=== PATIENT | male | born 1940 | race Caucasian/White ===

== ENCOUNTER 2017-02-15 07:30 | Inpatient (IN) | payer MEDICARE ==
[~2017-02-15] VITALS: Ht 180.3 cm; Wt 73.4 kg
[2017-02-15] VITALS (13 sets, daily range): BP systolic 100–143; BP diastolic 55–88; PULSE 101–129; RESP 16–27; TEMP 97.9–99; O2SAT 84–99
[~2017-02-15 07:30] MED LIST: ZYRT10TA12 PO
[2017-02-15] MEDS ORDERED: SODIUM CHLORIDE 0.9% FLUSH 10 ML FLUSH IVF PRN (08:15)
--- NOTE | 2017-02-15 08:15 | PD ---
HPI Chief Complaint: Respiratory Symptoms Time Seen by Provider: 07:59 Travel History International Travel<30 days: No Contact w/Intl Traveler<30days: No Traveled to known affect area: No History of Present Illness HPI This patient complains of shortness of breath and cough. Duration 7 days. Severity is severe. Denies chest pain or fever. He quit smoking in 1974 and has no diagnosed lung or cardiac disease. However he does not go to physicians or take any prescription medications. No alleviating factors. PFSH Past Medical History Medical History: Denies Significant Hx Diminished Hearing: No Past Surgical History Surgical History: No Previous Surgery Social History Alcohol Use: No Tobacco Use: No Substance Use: No Allergies-Medications (Allergen,Severity, Reaction): Coded Allergies: Aspirin (Verified Allergy, Severe, Rash, 02/15/17) Reported Meds & Prescriptions Reported Meds & Active Scripts Active No Active Prescriptions or Reported Medications Review of Systems General / Constitutional: No: Fever Eyes: No: Visual changes HENT: No: Headaches Cardiovascular: Positive: Tachycardia, Diaphoresis, No: Chest Pain or Discomfort Respiratory: Positive: Cough, Shortness of Breath Gastrointestinal: No: Abdominal Pain Genitourinary: No: Dysuria Musculoskeletal: No: Pain Skin: No Rash Neurologic: No: Weakness Psychiatric: No: Depression Endocrine: No: Polydipsia Hematologic/Lymphatic: No: Easy Bruising Physical Exam Narrative GENERAL: Disheveled well-developed patient in respiratory distress SKIN: Warm and dry. HEAD: Atraumatic. Normocephalic. EYES: Pupils equal and round. No scleral icterus. No injection or drainage. ENT: No nasal bleeding or discharge. Mucous membranes pink and moist. NECK: Trachea midline. No JVD. CARDIOVASCULAR: Regular rate and rhythm. No murmur appreciated. Tachycardic at 130 RESPIRATORY: Positive accessory muscle use. Markedly diminished breath sounds on the left side. Clear on the right side. No wheezing or crackles heard. GASTROINTESTINAL: Abdomen soft, non-tender, nondistended. Hepatic and splenic margins not palpable. MUSCULOSKELETAL: No obvious deformities. No clubbing. No cyanosis. No edema. NEUROLOGICAL: Awake and alert. No obvious cranial nerve deficits. Motor grossly within normal limits. Normal speech. PSYCHIATRIC: Appropriate mood and affect; insight and judgment normal. Data Data Last Documented VS Vital Signs Date Time Temp Pulse Resp B/P Pulse Ox O2 Delivery O2 Flow Rate FiO2 02/15/17 08:11 128 26 90 Non-Rebreather 100 02/15/17 07:57 97.9 143/88 02/15/17 07:57 4 Orders Electrocardiogram (02/15/17 ) Complete Blood Count With Diff (02/15/17 08:08) Basic Metabolic Panel (Bmp) (02/15/17 08:08) Act Partial Throm Time (Ptt) (02/15/17 08:08) Prothrombin Time / Inr (Pt) (02/15/17 08:08) Iv Access Insert/Monitor (02/15/17 08:08) Ecg Monitoring (02/15/17 08:08) Oximetry (02/15/17 08:08) Oxygen Administration (02/15/17 08:08) Chest, Single Ap (02/15/17 08:08) Sodium Chloride 0.9% Flush (Ns Flush) (02/15/17 08:15) Invasive Rad Dept Consult (02/15/17 ) Pleural Fl Cell Count + Diff (02/15/17 09:14) Ldh, Pleural Fluid (02/15/17 09:14) Fluid Culture And Gram Stain (02/15/17 09:14) Cytology Request For Service (02/15/17 09:14) Admit Order (Ed Use Only) (02/15/17 10:04) Labs Laboratory Tests Test 02/15/17 08:00 White Blood Count 110.2 TH/MM3 Red Blood Count 4.60 MIL/MM3 Hemoglobin 13.0 GM/DL Hematocrit 41.0 % Mean Corpuscular Volume 89.2 FL Mean Corpuscular Hemoglobin 28.3 PG Mean Corpuscular Hemoglobin 31.7 % Concent Red Cell Distribution Width 13.3 % Platelet Count 574 TH/MM3 Mean Platelet Volume 8.5 FL Neutrophils (%) (Auto) 94.9 % Lymphocytes (%) (Auto) 2.4 % Monocytes (%) (Auto) 2.6 % Eosinophils (%) (Auto) 0.0 % Basophils (%) (Auto) 0.1 % Neutrophils # (Auto) 104.7 TH/MM3 Lymphocytes # (Auto) 2.6 TH/MM3 Monocytes # (Auto) 2.9 TH/MM3 Eosinophils # (Auto) 0.0 TH/MM3 Basophils # (Auto) 0.1 TH/MM3 CBC Comment AUTO DIFF Differential Total Cells 200 Counted Neutrophils % (Manual) 72 % Band Neutrophils % 22 % Lymphocytes % 5 % Monocytes % 2 % Neutrophils # (Manual) 103.6 TH/MM3 Differential Comment FINAL DIFF MANUAL Platelet Estimate HIGH Platelet Morphology Comment NORMAL Keratocytes OCC Prothrombin Time 10.4 SEC Prothromb Time International 0.9 RATIO Ratio Activated Partial 23.6 SEC Thromboplast Time Sodium Level 143 MEQ/L Potassium Level 4.7 MEQ/L Chloride Level 105 MEQ/L Carbon Dioxide Level 22.9 MEQ/L Anion Gap 15 MEQ/L Blood Urea Nitrogen 43 MG/DL Creatinine 1.70 MG/DL Estimat Glomerular Filtration 40 ML/MIN Rate Random Glucose 223 MG/DL Calcium Level 10.5 MG/DL MDM Medical Decision Making Medical Screen Exam Complete: Yes Emergency Medical Condition: Yes Medical Record Reviewed: Yes Differential Diagnosis Pleural effusion, pneumothorax, pneumonia Narrative Course I have reviewed the patient's electronic medical record. Patient was seen here November 2015 for left hand edema Patient is critically ill with hypoxic respiratory failure On 4 L nasal cannula he is 92% On placing him on an oxygen mask Stat portable chest x-ray is profoundly abnormal. He has a very large left- sided pleural effusion with numerous chest masses on x-ray IV placed CBC shows extreme leukocytosis of 110,000 Metabolic profile reasonably normal Coagulation studies are normal On nonrebreather he has saturation of 99% and breathing easier I suspect he has a new onset cancer. Unclear whether it's a primary lung cancer or metastasis from something else. I've ordered CT of head chest abdomen and pelvis to further evaluate this. I reviewed in detail with police department secretary who will admit to intensive care. I had discussed with the radiologist and ordered a consultation for thoracentesis to drain fluid and sent for studies and cytology Pm Head Cook recommends chest tube instead given the potential for recurrence of fluid. I discussed with Dr. Chisholm in specials and he is agreeable to place a chest tube Patient is very complicated and requiring multiple consultations with multiple physicians, has required multiple rechecks at bedside I initially spoke with director quality assurance as well but he suggested radiology drain the fluid Critical Care Narrative Aggregate critical care time was 80 minutes. Time to perform other separately billable procedures was not included in the critical care time. My time did not include minutes spent treating any other patients simultaneously or on activities that did not directly contribute to the patient's treatment. The services I provided to this patient were to treat and/or prevent clinically significant deterioration that could result in: Cardiopulmonary arrest, complete respiratory failure, tension pneumothorax I provided critical care services requiring my management, as noted below: Chart data review, documentation time, medication orders and management, vital sign assessments/reviewing monitor data, ordering and reviewing lab tests, ordering and interpreting/reviewing x-rays and diagnostic studies, care of the patient and discussion of the patient with the admitting physicians. Diagnosis Primary Impression: Acute respiratory failure with hypoxia Additional Impressions: Pleural effusion on left Lung mass Admitting Information Admitting Physician Requests: Admit Scripts No Active Prescriptions or Reported Ed Kilgore MD Feb 15, 2017 08:15
[2017-02-15 08:31] LABS: AUTOMATED NEUTROPHIL # 104.7 TH/MM3 (1.8-7.7); BASOPHIL # 0.1 TH/MM3 (0-0.2); BASOPHIL % 0.1 % (0.0-2.0); LYMPH % 2.4 % (9.0-44.0); LYMPHOCYTE # 2.6 TH/MM3 (1.0-4.8); MEAN CELL VOLUME 89.2 FL (80.0-100.0); MEAN CORPUSCULAR HEMOGLOBIN 28.3 PG (27.0-34.0); MEAN CORPUSCULAR HGB CONC 31.7 % (32.0-36.0); MONO % 2.6 % (0.0-8.0); NEUT % 94.9 % (16.0-70.0); PLATELET COUNT 574 TH/MM3 (150-450); RED CELL DISTRIBUTION WIDTH 13.3 % (11.6-17.2); WHITE BLOOD COUNT 110.2 TH/MM3 (4.0-11.0)
[2017-02-15 08:36] LABS: HEMO FLAGS AUTO DIFF
[2017-02-15 08:40] LABS: APTT (PATIENT) 23.6 SEC (24.3-30.1); INTERNATIONAL NORMALIZED RATIO 0.9 RATIO; PROTHROMBIN TIME - PATIENT 10.4 SEC (9.8-11.6)
--- NOTE | 2017-02-15 08:44 | RADRPT ---
EXAM DATE/TIME: 02/15/2017 08:12 [facility] COMPARISON: No previous studies available for comparison. INDICATIONS : Short of breath. MEDICAL HISTORY : None. SURGICAL HISTORY : None. ENCOUNTER: Initial ACUITY: 2 weeks PAIN SCORE: 0/10 LOCATION: Bilateral chest FINDINGS: A single portable frontal view the chest shows multiple pulmonary masses. A very large left pleural e ffusion opacifies the majority of the left hemithorax. A small aerated portion of left lung apex gisella ins. A tiny right effusion is seen. Cardiac contour is totally obscured by the effusion. Aortic knob son unremarkable. Bony structures are unremarkable. CONCLUSION: 1. Multiple pulmonary masses worrisome for metastatic disease. Consider CT of the chest to further ev aluate. 2. Large left and tiny right pleural effusion. Jermaine Chisholm Jr., MD on February 15, 2017 at 8:42 Board Certified Radiologist. This report was verified electronically.
[2017-02-15 08:51] LABS: BICARBONATE 22.9 MEQ/L (21.0-32.0); POTASSIUM 4.7 MEQ/L (3.5-5.1)
[2017-02-15 09:01] LABS: BANDS 22 % (0-6); NEUTROPHIL # MANUAL DIFF 103.6 TH/MM3 (1.8-7.7); POLYS (SEG NEUTROPHILS) 72 % (16-70); WBC DIFF SAMPLE 200
[2017-02-15 09:02] LABS: PLATELET ESTIMATE SMEAR HIGH (NORMAL)
[2017-02-15 09:03] LABS: PLATELET MORPHOLOGY NORMAL (NORMAL)
[2017-02-15 09:04] LABS: KERATOCYTES OCC (NORMAL)
[2017-02-15 09:05] LABS: SCAN/DIFF FINAL DIFF MANUAL
[2017-02-15] MEDS ORDERED: FUROSEMIDE 100 MG/10 ML VIAL IV PUSH ONE (11:00)
[2017-02-15] MEDS ORDERED: MISCELLANEOUS NURSING INFORMATION XX SCH (11:30)
[2017-02-15] MEDS ORDERED: DEXTROSE 50% IN WATER 50 ML VIAL(D50) IV PUSH PRN (11:30)
[2017-02-15] MEDS ORDERED: CHLORHEXIDINE GLUCONATE 2 % 1 PACK (2 CLOTHS) TOP PRN (11:30)
[2017-02-15] MEDS: INSULIN NovoLIN REGULAR SUPPLEMENTAL SCALE SQ SCH ×3 (11:30→21:22)
[2017-02-15] MEDS ORDERED: GLUCAGON 1 MG/ML VIAL OTHER PRN (11:30)
[2017-02-15] MEDS: SODIUM CHLOR 0.9% 1000 ML INJ 1,000 ML IV SCH ×2 (11:45→23:31)
[2017-02-15] MEDS: PANTOPRAZOLE SODIUM 40 MG VIAL IV SCH (11:46)
[2017-02-15] MEDS: PIPERACIL-TAZO 4.5 GM PREMIX 100 ML IV SCH ×2 (11:46→21:18)
[2017-02-15] MEDS ORDERED: IODIXANOL 320 MG/ML 10 ML VIAL (for Rad CT) IV ONE (11:55)
--- NOTE | 2017-02-15 12:14 | RADRPT ---
EXAM DATE/TIME: 02/15/2017 11:53 [facility] COMPARISON: No previous studies available for comparison. INDICATIONS : Evaluate for mass. RADIATION DOSE: 38.37 CTDIvol (mGy) MEDICAL HISTORY : None SURGICAL HISTORY : Tonsillectomy. ENCOUNTER: Initial ACUITY: 1 day PAIN SCALE: 3/10 LOCATION: cranial TECHNIQUE: Multiple contiguous axial images were obtained of the head. Using automated exposure control and adj ustment of the mA and/or kV according to patient size, radiation dose was kept as low as reasonably a chievable to obtain optimal diagnostic quality images. FINDINGS: Extensive motion artifact is present. There is no gross blood evident. I do not see significant mas s effect or midline shift. Ventricular size is appropriate. CONCLUSION: Marked motion artifact. I do not see evidence for a mass. Nick Murphy MD FACR on February 15, 2017 at 12:05 Board Certified Radiologist. This report was verified electronically.
--- NOTE | 2017-02-15 12:21 | MH ---
cc: CINDY BARBER DATE OF ADMISSION: 02/15/2017 1942 HISTORY OF PRESENT ILLNESS The patient is a 76-year-old who denies any significant past medical history, presented to [facility] ED with respiratory distress. The patient states that he has been short of breath for the past 2 weeks and progressively worsened. He also reports productive cough with brown phlegm, however, he denies any fever, chills or any constitutional symptoms. The patient denies any nausea, vomiting or abdominal pain. He has not seen a physician for several years and is not on any medications at home. The patient has a remote history of tobacco use and used to smoke a pack a day for several years. On arrival to the ED the patient was tachycardic with heart rate of 120s, tachypneic and hypoxic. He was placed on a non-rebreather mask with current saturation of 98-99%. The chest x-ray in the ER showed large left pleural effusion occupying approximately two-third of the left lung field along with pulmonary masses worrisome for metastatic disease. His laboratory data is significant for acute kidney injury with a BUN of 43, creatinine 1.70, hypercalcemia with calcium level 10.5. In addition his WBC was 110.2, associated with bandemia of 22. In the ER he was given Lasix [address] A [address] scan of the chest, abdomen and pelvis was ordered by the ED, in addition interventional radiology was consulted by ER for chest tube placement. PAST MEDICAL HISTORY The patient denies any prior history of pulmonary or cardiac disease. 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 SOCIAL HISTORY Occasional drinker. Ex-smoker. MEDICATIONS AT HOME None. FAMILY HISTORY Noncontributory. ALLERGIES ASPIRIN - SIDE-EFFECT IS DIZZINESS. REVIEW OF SYSTEMS As per HPI. The rest of the review of systems limited as the patient is a poor historian. PHYSICAL EXAMINATION GENERAL: A 76-year-old male lying in bed, in mild respiratory distress. VITAL SIGNS: Temperature 97.9 axillary. Pulse of 115, blood pressure 127/78, saturation 98% on non-rebreather. HEENT: Atraumatic, normocephalic. Pupils are equal, round, reactive to light and accommodation. Extraocular muscles intact. Conjunctivae pink. Nonicteric sclerae. Dry mucous membranes. NECK: Supple. No JVD, adenopathy or thyromegaly. Trachea midline. CARDIOVASCULAR: Tachycardic. Normal S1-S2. No murmurs, rubs or gallops noted. PULMONARY: Diminished breath sounds on the left side, few coarse breath sounds are noted. No wheezing or crackles. ABDOMEN: Soft, nontender. No distension. Positive bowel sounds. EXTREMITIES: No cyanosis, clubbing or edema. NEURO: No focal sensory deficit. LABORATORY DATA WBC 110, hemoglobin 13, hematocrit 41, platelet count 574, sodium of 143, potassium 4.7, chloride 105, CO2 22, BUN 43, creatinine 1.70, glucose 223, calcium 10.5, INR 0.9, PT 10.4, PTT 23.6. RADIOGRAPHIC STUDIES Chest x-ray showed large left pleural effusion with pulmonary masses, worrisome for metastatic disease. IMPRESSION 1. Acute hypoxemic respiratory failure. 2. Large left pleural effusion, rule out malignancy. 3. Pulmonary masses, likely secondary to metastatic disease. 4. Acute kidney injury. 5. Hyperglycemia. 6. Hypercalcemia, likely related to malignancy. 7. Leukocytosis. RECOMMENDATIONS 1. Monitor neuro status closely and avoid any sedatives. The patient is for CT scan of the brain to rule out acute intracranial process and brain mets. 2. Continue with oxygen and maintain sats above 92%. 3. Bronchodilators in the form of DuoNeb q. 4 plus q. 2 p.r.n. for shortness of breath. 4. Noninvasive positive pressure ventilation p.r.n. for respiratory distress. 5. The patient for thoracentesis with chest tube placement by interventional radiology, requested by ED. Will send pleural fluid for analysis and cytology. 6. Follow-up on CT scan of the chest without contrast. 7. Monitor heart rate and blood pressure closely and maintain MAP greater than 65 mmHg. 8. Monitor renal function, I's and O's and avoid nephrotoxins. Will insert a Chan. Will place on IV fluids in the form of NS at 75 mL an hour. Monitor calcium level. 9. Keep n.p.o. for now until respiratory status improves and place on Protonix 40 mg IV daily for GI prophylaxis. 10. Continue with empiric antibiotics in the form of Zosyn and monitor for signs of infections which include fever and WBC. Obtain a sputum culture with gram stain and we will check urinalysis with culture if indicated. 11. Consult pulmonary service as the patient might need a bronchoscopy to rule out endobronchial lesions. 12. Monitor CBC and coags. In addition will consult medical oncology service regarding metastatic disease and continue with staging workup. The patient is for CT chest, abdomen and pelvis. 13. Sliding scale insulin with Accu-Chek q. 6-hours for glycemic control. 14. Check ABG. 15. GI prophylaxis with Protonix 40 mg daily and DVT prophylaxis with SCDs. Will hold off on chemical anticoagulation prophylaxis given the patient will undergo thoracentesis and chest tube placement. 16. Further recommendations will be based on hospital course. 17. Critical care time is 35 minutes. MD ADOLPH Almazan/PRISCA /11:34 AM /12:01 PM ELICIA
--- NOTE | 2017-02-15 12:31 | RADRPT ---
EXAM DATE/TIME: 02/15/2017 12:04 [facility] COMPARISON: No previous studies available for comparison. INDICATIONS : Evaluate for mass. IV CONTRAST: 50 cc Omnipaque 350 (iohexol) IV ; Cumulative dose for multiple exams. ORAL CONTRAST: No oral contrast ingested. RADIATION DOSE: 9.96 CTDIvol (mGy) ; Combined studies - Thorax/Abdomen/Pelvis MEDICAL HISTORY : None SURGICAL HISTORY : Tonsillectomy. ENCOUNTER: Initial ACUITY: 1 day PAIN SCALE: 3/10 LOCATION: Bilateral abdomen. TECHNIQUE: Volumetric scanning of the abdomen and pelvis was performed. Using automated exposure control and ad justment of the mA and/or kV according to patient size, radiation dose was kept as low as reasonably achievable to obtain optimal diagnostic quality images. FINDINGS: Again seen is a large left pleural effusion and parenchymal opacity in the right base. The liver is free of focal defects. Gallstones are noted. Spleen, pancreas unremarkable. Bilateral renal cysts are noted. The larger of the cyst on the left measures 4.5 cm and does contain some incidental calcifications. In the pelvis diverticula are present in the sigmoid colon. Bladder is decompressed by a Chan. Review of bone windows reveals degenerative changes in the lumbar spine. CONCLUSION: 1. Large pleural effusion on the left with pleural thickening and parenchymal mass on the right. María Elena ng cancer is suspected. I do not see obvious metastatic disease in the abdomen. 2. Gallstones. Nick Murphy MD FACR on February 15, 2017 at 12:20 Board Certified Radiologist. This report was verified electronically.
--- NOTE | 2017-02-15 12:35 | RADRPT ---
EXAM DATE/TIME: 02/15/2017 12:04 [facility] COMPARISON: CT ABDOMEN & PELVIS W CONTRAST, February 15, 2017, 12:04. INDICATIONS : Evaluate for mass. IV CONTRAST: 50 cc Visipaque (iodixanol) IV ; Cumulative dose for multiple exams. RADIATION DOSE: 9.96 CTDIvol (mGy) ; Combined studies - Thorax/Abdomen/Pelvis MEDICAL HISTORY : None SURGICAL HISTORY : Tonsillectomy. ENCOUNTER: Initial ACUITY: 1 day PAIN SCALE: 3/10 LOCATION: Bilateral chest TECHNIQUE: Volumetric scanning of the chest was performed. Using automated exposure control and adjustment of t he mA and/or kV according to patient size, radiation dose was kept as low as reasonably achievable to obtain optimal diagnostic quality images. FINDINGS: This is suspicious for renal cell carcinoma or lung cancer. Patient has multiple apparent cysts in both kidneys none that look like an obvious cancer. Review of bone windows reveals degenerative changes in the thoracic spine. CONCLUSION: Markedly abnormal CT scan of the chest with complete opacification of left hemithorax with consolidat esha changes about the left lung. Multiple soft tissue masses are seen on the right. Easiest way to obtain diagnosis is biopsy of the large mass anteriorly on the right. This could be biopsies percuta neously. Thoracentesis would be of benefit with tube placement on the left. Nick Murphy MD FACR on February 15, 2017 at 12:22 Board Certified Radiologist. This report was verified electronically.
[2017-02-15] MEDS: RESP: ALBUTEROL 2.5 MG/IPRATROPIUM 0.5 MG NEB (SCH) INH ×4 (12:44→23:18)
[2017-02-15 12:54] LABS: BLOOD GAS CARBOXYHEMOGLOBIN 0.6 % (0-4); BLOOD GAS HCO3 23 mmol/L (22-26); BLOOD GAS METHEMOGLOBIN 0.8 % (0-2); BLOOD GAS O2 HGB SATURATION 94 % (90-100); BLOOD GAS OXYGEN CONTENT 16.4 Vol % (12.0-20.0); BLOOD GAS PCO2 43 mmHg (38-42); BLOOD GAS PO2 85 mmHG (61-120); BLOOD GAS TOTAL HGB 12.3 G/DL (12.0-16.0); CRITICAL VALUE NO; DRAW SITE RT RADIAL; LITER FLOW 15 L/M; NUMBER OF ARTERIAL PUNCTURES 1; STAT YES; TEMP CORR TO 98.6; ULNAR PULSE PRESENT
[2017-02-15] MEDS ORDERED: fentaNYL CITRATE 250 MCG/5 ML AMP ONE (13:35)
--- NOTE | 2017-02-15 14:00 | PD.RAD ---
Post Procedure Progress Note Pre Procedure Diagnosis: (1) Acute respiratory failure with hypoxia (2) Pleural effusion on left Post Procedure Diagnosis: (1) Acute respiratory failure with hypoxia (2) Pleural effusion on left Procedure Date: Feb 15, 2017 Supervising Radiologist: Jermaine Chisholm JR Proceduralist/Assist: Rodney Beckwith, RT(R), Stephanie Pena RT(R)(CV) Anesthesia: Analgesia Plan of Activity Patient to Unit: Nursing Unit Patient Condition: Good See PACS Report for procedural detail/treatment Drainage Procedure Procedure 1 Imaging Guidance: Fluoroscopy, Ultrasound Side: Left Procedure Type: Chest Tube Non-Tunneled Procedure: Placement Azeri: 10 Drainage: Pleurovac Fluid Description: Bloody Findings: Large left effusion. Placed 10F chest tube. Bloody drainage noted. 3L removed on table. Remaining fluid will drain into pleura-vac. Jr. Phan,Jermaine Kaur MD Feb 15, 2017 14:00
--- NOTE | 2017-02-15 14:48 | RADRPT ---
EXAM DATE/TIME: 02/15/2017 14:29 [facility] COMPARISON: CT ABDOMEN & PELVIS W CONTRAST, February 15, 2017, 12:04. INDICATIONS : Post chest tube placement. MEDICAL HISTORY : None. SURGICAL HISTORY : None. ENCOUNTER: Subsequent ACUITY: 1 day PAIN SCORE: 0/10 LOCATION: Bilateral chest FINDINGS/CONCLUSION: Chest tube is in place on the left. There is a 1.3 cm pneumothorax present i n spite of chest tube. Multiple to 3 cm masses are seen throughout both lungs most suspicious for re nal cell carcinoma or seminoma in spite of the negative CT scan. CONCLUSION: Chest tube is in place on the left. There is a 1.3 cm pneumothorax present in spite o f chest tube. Nick Murphy MD FACR on February 15, 2017 at 14:42 Board Certified Radiologist. This report was verified electronically.
[2017-02-15 15:03] LABS: TOTAL PROTEIN,PLEURAL FLUID 4.3 GM/DL
[2017-02-15 15:40] LABS: PLEURAL FLUID LYMPHS 9 %; PLEURAL FLUID PH 7.5
--- NOTE | 2017-02-15 15:53 | RADRPT ---
EXAM DATE/TIME: 02/15/2017 13:23 [facility] COMPARISON: No previous studies available for comparison. INDICATIONS : Patient presents with dyspnea. Imaging shows metastatic disease to the lungs with a large left effusi on occupying the majority of the left hemithorax. Chest tube placement requested. MEDICAL HISTORY : Former smoker Large left pleural effusion Acute hypoxemic respiratory failure Pulmonary masses Hyperglycemia Hypercalcemia Leukocytosis SURGICAL HISTORY : N/A ENCOUNTER: Initial ACUITY: 2 weeks PAIN SCORE: 0/10 LOCATION: N/A. SOB FLUORO TIME: 0.6 minutes IMAGE SERIES: 0 SEDATION TIME: 15 minutes MEDICATION(S): 1.) 100 mcg fentanyl (Sublimaze) IV DEVICE(S): 1.) 10 Tajik non-locking catheter 30CM PROCEDURE : 1. Fluoroscopically and sonographically guided chest tube placement. 2. Conscious sedation with continuous EKG and oximetry monitoring. The risks, benefits and alternatives to the procedure were explained and verbal and written consent w as obtained. The site was prepped in sterile fashion. Full sterile technique was used, including ca p, mask, sterile gloves and gown and a large sterile sheet. Hand hygiene and 2% chlorhexidine and/or betadine/alcohol prep was utilized per protocol for cutaneous antisepsis. The skin and subcutaneous tissues were infiltrated with local anesthetic solution. The patient was so short of breath he was unable to lay flat. The patient could not elevate his left arm over his head. The window for access was quite small within the left lateral hemithorax. With ult rasound guidance the chest was punctured in the left infralateral chest and the prescribed catheter w as placed situated in the tip in the lower hemithorax. A total of 3 L of bloody fluid was removed fro m the left hemithorax. Fluoroscopic images show partial reexpansion of the left upper lobe. Following 3 L of removal the suction was discontinued and the catheter placed to pleuro-vac for slower drainag e of the remaining fluid. Post procedure images demonstrate satisfactory position of the tube. The c atheter was sutured in place and a Percu-Stay was applied. Conscious sedation was performed with the prescribed dosages and duration as above in the presence of an independent trained radiology nurse to assist in the monitoring of the patient. EKG and oximetry remained stable throughout the procedure. The patient tolerated the procedure well and there were n o complications. The patient was sent to post anesthesia recovery in stable condition. CONCLUSION: Uncomplicated left chest tube placement as above. 3 L of bloody fluid was removed. Samples to the lab as requested. Metastatic lesions seen throughout the lungs bilaterally. Jermaine Chisholm Jr., MD on February 15, 2017 at 15:47 Board Certified Radiologist. This report was verified electronically.
[2017-02-15 17:10] LABS: AUTOMATED NEUTROPHIL # 111.6 TH/MM3 (1.8-7.7); BASOPHIL # 0.2 TH/MM3 (0-0.2); BASOPHIL % 0.2 % (0.0-2.0); HEMATOCRIT 37.5 % (39.0-51.0); LYMPH % 1.3 % (9.0-44.0); LYMPHOCYTE # 1.4 TH/MM3 (1.0-4.8); MEAN CELL VOLUME 89.2 FL (80.0-100.0); MEAN CORPUSCULAR HEMOGLOBIN 27.9 PG (27.0-34.0); MEAN CORPUSCULAR HGB CONC 31.3 % (32.0-36.0); MONO % 0.9 % (0.0-8.0); NEUT % 97.6 % (16.0-70.0); PLATELET COUNT 478 TH/MM3 (150-450); RED CELL DISTRIBUTION WIDTH 13.3 % (11.6-17.2); WHITE BLOOD COUNT 114.2 TH/MM3 (4.0-11.0)
[2017-02-15 17:12] LABS: HEMO FLAGS AUTO DIFF
--- NOTE | 2017-02-15 17:17 | MB ---
cc: JERSON ARTHUR M.D. DATE OF CONSULTATION 02/15/2017 REASON FOR CONSULTATION Pleural effusion. HISTORY OF PRESENT ILLNESS Mr. Fermin a 76-year-old male who presents to the emergency room with increasing shortness of breath. CT scan of the chest was undertaken with evidence of large left pleural effusion, multiple masses in the right lung. The patient had a chest tube placed while in the emergency room by interventional radiology. Sanguineous fluid has been aspirated. The patient has no previous significant medical history. Denies history of fever, chills. Has an occasional cough. No expectoration. No hemoptysis. Has no previous history of TB or industrial exposure. PAST MEDICAL HISTORY The patient's past medical history, no diabetes. No hypertension. No heart disease. No diabetes. 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 SOCIAL HISTORY Used to smoke, has not smoked for years. Drinks alcohol socially. Does not use drugs. MEDICATIONS None. ALLERGIES Aspirin. FAMILY HISTORY Noncontributory. REVIEW OF SYSTEMS 12-point review of systems as per HPI and past history otherwise negative. PHYSICAL EXAMINATION GENERAL: The patient is alert, appears weak. VITAL SIGNS: Temperature 97.9, pulse 96, respirations 18, blood pressure 127/80. Oxygen saturation 98% on rebreathing mask. HEENT: Exam unremarkable. Eyes without icterus. NECK: Without adenopathy, thyroid enlargement. CHEST: Decreased breath sounds left lung base. Few scattered rhonchi right. CARDIOVASCULAR: Exam PMI not appreciated. S1-S2 audible. No murmur or rub. ABDOMEN: Lax. Bowel sounds audible. EXTREMITIES: No clubbing, cyanosis or edema. LABORATORY DATA White count 110,000, hemoglobin 13, hematocrit 41, platelets 574,000. Sodium 143, potassium 4.7. IMPRESSION 1. Respiratory failure on oxygen therapy. 2. Large pleural effusion. 3. Multiple pulmonary masses. 4. Mild renal insufficiency. 5. Severe leukocytosis. PLAN Chest tube has been inserted and appropriately so. We will check pleural fluid studies, malignancy is obviously highly suspect given the findings on CT scan. His leukocytosis is severe and further evaluation would be needed. Hematology evaluation will be appropriate. Oxygen therapy will be given as needed to maintain adequate oxygen saturation. Given the patient's history of previous malignancy, previous findings prior to his amputation will be obtained if possible. I will follow the patient's course along with you and depending on progress proceed further. Jerson Arthur MD WWW/MINH /3:30 PM /5:03 PM
[2017-02-15 17:44] LABS: BANDS 27 % (0-6); NEUTROPHIL # MANUAL DIFF 109.6 TH/MM3 (1.8-7.7); POLYS (SEG NEUTROPHILS) 69 % (16-70); WBC DIFF SAMPLE 100
[2017-02-15 17:45] LABS: PLATELET ESTIMATE SMEAR HIGH (NORMAL); PLATELET MORPHOLOGY NORMAL (NORMAL); SCAN/DIFF FINAL DIFF MANUAL; TOXIC GRANULATION 1+ (NORMAL); TOXIC VACUOLATION PRESENT (NONE SEEN)
[2017-02-15] MEDS ORDERED: PAMIDRONATE INJ 90 MG in SODIUM CHLORID 0.9% 500 ML INJ 500 ML IV ONE (19:30)
--- NOTE | 2017-02-15 20:37 | MB ---
cc: CINDY RIOS M.D., ABDUL J. M.D. DATE OF CONSULTATION 02/15/2017 REASON FOR CONSULTATION Consult requested by Dr. Rios for evaluation of leukocytosis and bilateral pulmonary masses. HISTORY OF PRESENT ILLNESS Pola is a 76-year-old very poor historian. He is without any significant past medical history. History is obtained through his sister Ashley who is a registered nurse. She lives in [facility]. Her telephone number is [phone]. The patient had developed swelling of the first web of the left hand last year November. He came to the emergency room at [facility]. He was referred to hand surgeon Dr. Jimenez Portillo. Dr. Portillo ordered the MRI of the left hand which showed a soft tissue mass consistent with malignancy such as sarcoma. The patient was referred to [facility] to see Dr. Tesfaye orthopedic oncologist. We have some notes in the [facility] from February of 2016. These indicated that the patient had a frozen section of the mass which showed a high-grade sarcoma. The CT of the chest showed multiple bilateral pulmonary nodules consistent with metastatic disease. 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 Further records are not available. I do not know whether the patient was referred to an oncologist for chemotherapy given that obviously he had metastatic disease with multiple pulmonary nodules at that time. His sister is not aware of the lung nodules. The patient does not remember whether he has seen any oncologist either. He is a very poor historian. He does not have any local medical doctor either. The patient came into the emergency room complaining of severe shortness of breath with cough for the last 1-2 weeks. In the emergency room the patient had a chest x-ray which showed multiple pulmonary masses worrisome for metastatic disease and a CT scan of the chest was recommended. It also showed large left and tiny right pleural effusion. The patient underwent thoracentesis and left chest tube placement. This revealed a serosanguineous pleural fluid. The cytology is pending. The chemistry showed normal total protein. Pleural glucose is 182 and pleura LDH is 1499. The white cells are 5380 and the red cells are approx. 461,000. The patient had a CT scan of the chest, abdomen and pelvis. This showed marked abnormal CT scan of the chest with complete opacification of the left hemithorax with consolidative changes about the left lung. Multiple soft tissue masses are seen on the right. The CT of the abdomen and pelvis does not show any obvious metastatic disease below the diaphragm. I have been asked to see the patient for further evaluation. The patient is clearly short of breath. He is in the Intensive Care Unit under the care of cattle broker Dr. Rios. He is a very poor historian. He appears to be confused. The CT of the brain does not show any metastatic disease. However, his CBC showed white count of 110,000, hemoglobin is normal at 13. Platelet count is mildly elevated at 574. The differential count does not show any peripheral blasts. The patient has 72% neutrophils and 22% bands. CBC was repeated in the afternoon and the white count is still high at 114. Hemoglobin dropped to 11.7, platelet count is 478. The patient now has toxic granulation and vacuolation as well. Blood cultures have been done. The gram stain of the pleural fluid has been done, the results are still pending. Pulmonary has been consulted as well. The rest of the review of system is very difficult to get it due to the patient is a poor historian and appears to be confused. 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 PAST SURGICAL HISTORY Left hand amputation. ALLERGIES None. MEDICATIONS Medications prior to coming to the hospital are none. FAMILY HISTORY Parents from natural causes in their 90s. The patient had one full sister who from natural causes. The patient has two half-sisters from the mother's side, one has breast cancer, Ashley. She is a retired registered nurse. The other sister is fine. The patient has one full brother who has colon cancer but he is not close to him. He had one half-brother who from [place]. The patient has three sons, all are alive and well. The patient does not have any daughters. SOCIAL HISTORY The patient is , lives by himself. Does not smoke cigarettes. Occasionally drinks alcohol. 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 PHYSICAL EXAMINATION GENERAL: This is a well-developed, chronically ill appearing white male in respiratory distress. VITAL SIGNS: Temperature 99, heart rate is 101, blood pressure 108/58. O2 saturation 97%. HEENT: Pupils equal, round, reactive to light and accommodation. Extraocular muscles intact. Anicteric. No oral lesions noted. NECK: Supple. LYMPHATICS: There is no cervical, supraclavicular or axillary lymphadenopathy noted. LUNGS: Decreased breath sounds at the left side. Right side is clear. HEART: Tachycardia with no murmur. ABDOMEN: Soft. Nontender. EXTREMITIES: Left hand amputation noted. No pedal edema. NEUROLOGICAL: Awake and alert, oriented times two. SKIN: No significant lesions noted. ASSESSMENT 1. 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 But the patient has not been treated for the metastasis. Those records are not available at the present time, and it is unclear whether he saw any oncologist for the chemotherapy or not. 2. Progressive bilateral pulmonary masses with complete opacification of the left lung and a very large pleural effusion status post thoracentesis and a chest tube placement. 3. Poor historian may be due to change in mental status , metabolic encephalopathy. 4. Leukocytosis with neutrophilia and bandemia and no peripheral blasts. This is most likely reactive process such as leukemoid reaction from lung mets and sepsis or this could be from myeloproliferative disorder. 5. Hypercalcemia with a calcium of 10.5. 6. Renal failure. PLAN I have reviewed his available records and I had an extensive discussion with the patient and his sister over the phone, Ashley who is a retired registered nurse. Her telephone number is [phone]. Unfortunately she does not know her brother's medical history much. She was aware that he was diagnosed with cancer of the left hand last year but she could not tell me any details. There are some records available on the EMR from the hand surgeon Dr. Jimenez Portillo. The patient had an MRI of the left hand on February 03, 2016 which showed a large, soft tissue mass of the left hand which extends from the medial margin of the thumb metacarpal through the first, second and third intermetacarpal spaces extending from the level of the carpal metacarpal joint to the level of the metacarpal phalangeal joint. It encases the second and third metacarpal shaft and also abuts the fourth metacarpal shaft. The mass measures 9.6 x 4.7 cm. There is extensive bone marrow signal abnormality of the third metacarpal shaft noted. The patient went to [facility]. He had a frozen section of the soft tissue mass last year by Dr. Tesfaye orthopedic oncologist. The frozen section was consistent with high-grade sarcoma. The CT scan of the chest also showed multiple bilateral pulmonary nodules consistent with metastasis. The patient underwent amputation of the left hand. It is not clear whether the patient was evaluated by any medical oncologist or not. We do not have any of those records available. We will attempt to get those records from [facility]. It is unclear whether he was offered chemotherapy or not, whether he has declined it or not. Clearly now he has extensive pulmonary metastasis with multiple soft tissue masses in the right lung and complete opacification of the left lung with large left pleural effusion. The thoracentesis showed that this was a serosanguineous pleural effusion. The cytology is still pending. My recommendation is to ask interventional radiologist for CT-guided core needle biopsy of the right lung mass. Once we have confirmation of the metastatic sarcoma, then we will discuss with the patient and his sister regarding the chemotherapy. The patient has severe leukocytosis with a white count of 110,000 and the differential count is significant for neutrophilia with an absolute neutrophil count of 101,000. Also he has monocytosis with absolute monocyte count of 1000. He does not have any peripheral blast. However, he has toxic granulation and toxic vacuolation consistent with infection. I think most likely the patient has leukemoid reaction from bilateral pulmonary metastasis as well as large left pleural effusion. The patient is on the antibiotics by the cattle broker. I will order the BCR-ABL by FISH and AARON-2 mutation for evaluation of myeloproliferative disorder. I will also get the flow cytometry to evaluate for leukemia which I doubt it. The patient's calcium is high at 10.5. We will give him Aredia. The patient is confused, may be due to the hypercalcemia. I will get the comprehensive metabolic profile as we need to look at the liver enzymes as well. We will repeat the basic metabolic profile tomorrow. Further recommendations based on his hospital stay. Thank you for asking my opinion. MD LUCAS De Leon/MINH /7:06 PM /7:50 PM ELICIA
[2017-02-15] MEDS: CHLORHEXIDINE GLUCONATE 2 % 1 PACK (2 CLOTHS) TOP SCH (21:18)
[2017-02-15 21:20] LABS: ALKALINE PHOSPHATASE 138 U/L (45-117); ALT (GPT) 13 U/L (12-78); ANION GAP 12 MEQ/L (5-15); AST (GOT) 14 U/L (15-37); BICARBONATE 25.4 MEQ/L (21.0-32.0); BLOOD UREA NITROGEN 57 MG/DL (7-18); CHLORIDE 109 MEQ/L (98-107); GLOMERULAR FILTRATION RATE 31 ML/MIN (>89); POTASSIUM 4.4 MEQ/L (3.5-5.1); SODIUM (NA) 146 MEQ/L (136-145); TOTAL BILIRUBIN ADULT 0.4 MG/DL (0.2-1.0)
[2017-02-16] VITALS (15 sets, daily range): BP systolic 100–114; BP diastolic 55–60; PULSE 100–116; RESP 20–27; TEMP 96.4–99.6; O2SAT 91–96
[2017-02-16] MEDS: RESP: ALBUTEROL 2.5 MG/IPRATROPIUM 0.5 MG NEB (SCH) INH ×6 (03:31→23:19)
[2017-02-16 03:43] LABS: HEMATOCRIT 35.1 % (39.0-51.0); MEAN CORPUSCULAR HEMOGLOBIN 28.3 PG (27.0-34.0); MEAN CORPUSCULAR HGB CONC 32.1 % (32.0-36.0); PLATELET COUNT 522 TH/MM3 (150-450); RED BLOOD COUNT 3.99 MIL/MM3 (4.50-5.90); RED CELL DISTRIBUTION WIDTH 13.4 % (11.6-17.2); WHITE BLOOD COUNT 109.7 TH/MM3 (4.0-11.0)
[2017-02-16 03:47] LABS: HEMO FLAGS AUTO DIFF
[2017-02-16 04:01] LABS: ALT (GPT) 14 U/L (12-78); ANION GAP 12 MEQ/L (5-15); AST (GOT) 14 U/L (15-37); BICARBONATE 24.4 MEQ/L (21.0-32.0); BLOOD UREA NITROGEN 58 MG/DL (7-18); CHLORIDE 112 MEQ/L (98-107); GLOMERULAR FILTRATION RATE 31 ML/MIN (>89); POTASSIUM 4.2 MEQ/L (3.5-5.1); SODIUM (NA) 148 MEQ/L (136-145)
[2017-02-16 04:02] LABS: ALKALINE PHOSPHATASE 150 U/L (45-117); TOTAL BILIRUBIN ADULT 0.5 MG/DL (0.2-1.0)
[2017-02-16] MEDS: INSULIN NovoLIN REGULAR SUPPLEMENTAL SCALE SQ SCH ×3 (04:12→23:30)
[2017-02-16] MEDS: PIPERACIL-TAZO 4.5 GM PREMIX 100 ML IV SCH (04:15)
--- NOTE | 2017-02-16 04:34 | RADRPT ---
EXAM DATE/TIME: 02/16/2017 02:56 [place] COMPARISON: CHEST EXPIRATION ONLY, February 15, 2017, 14:29. CT THORAX W CONTRAST, February 15, 2017, 12:04. INDICATIONS : Pneumothorax. MEDICAL HISTORY : None. SURGICAL HISTORY : None. ENCOUNTER: Subsequent ACUITY: 2 days PAIN SCORE: Non-responsive. LOCATION: Bilateral chest FINDINGS: There is a tiny left apical pneumothorax decreased from February 15. Multiple bilateral lung masses agai n noted. Small caliber left chest tube present. CONCLUSION: 1. Small caliber left chest tube with tiny left apical pneumothorax, decreased from February 15. Christian Dueñas MD on February 16, 2017 at 4:30 Board Certified Radiologist. This report was verified electronically.
[2017-02-16 07:00] LABS: BANDS 11 % (0-6); METAMYELOCYTES 1 % (0-1); NEUTROPHIL # MANUAL DIFF 106.4 TH/MM3 (1.8-7.7); PLATELET ESTIMATE SMEAR HIGH (NORMAL); POLYS (SEG NEUTROPHILS) 85 % (16-70); WBC DIFF SAMPLE 200
[2017-02-16 07:01] LABS: PLATELET MORPHOLOGY NORMAL (NORMAL); SCAN/DIFF FINAL DIFF MANUAL
[2017-02-16] MEDS: PANTOPRAZOLE SODIUM 40 MG VIAL IV SCH (09:11)
--- NOTE | 2017-02-16 11:04 | PD.ONC.PN ---
Subjective Subjective Remarks Afebrile overnight. Patient resting comfortably. Objective Data Date Time Temp Pulse Resp B/P Pulse Ox O2 Delivery O2 Flow Rate FiO2 02/16/17 09:59 94 Nasal Cannula 4.00 02/16/17 08:19 92 Venturi Mask 40 02/16/17 06:00 103 02/16/17 04:00 99.6 106 20 108/55 96 02/16/17 04:00 106 02/16/17 03:59 93 Venturi Mask 6.00 40 02/16/17 02:00 103 02/16/17 00:06 95 Venturi Mask 7.00 50 02/16/17 00:00 110 02/16/17 00:00 98.4 110 24 100/58 96 02/15/17 22:00 103 02/15/17 20:00 98.8 101 25 105/55 99 02/15/17 20:00 101 02/15/17 19:20 97 Non-Rebreather 15.00 100 02/15/17 18:00 101 02/15/17 18:00 99.0 110 16 108/58 97 02/15/17 18:00 99.0 103 18 100/58 97 02/15/17 16:00 101 02/15/17 15:57 99.0 103 16 102/57 97 02/15/17 15:00 101 02/15/17 14:26 104 24 111/56 98 Non-Rebreather 15 02/15/17 14:20 102 24 107/57 98 Non-Rebreather 15 02/15/17 12:47 96 Non-Rebreather 15.00 100 Result Diagram: 02/16/17 0309 02/16/17 0309 Laboratory Results Laboratory Tests Test 02/15/17 02/15/17 02/15/17 02/15/17 12:43 13:46 15:10 16:54 Blood Gas Puncture Site RT RADIAL Blood Gas Patient Temperature 98.6 Blood Gas HCO3 23 mmol/L Blood Gas Base Excess -2.0 mmol/L Blood Gas Oxygen Saturation 94 % Arterial Blood pH 7.34 Arterial Blood Partial 43 mmHg Pressure CO2 Arterial Blood Partial 85 mmHG Pressure O2 Arterial Blood Oxygen Content 16.4 Vol % Arterial Blood 0.6 % Carboxyhemoglobin Arterial Blood Methemoglobin 0.8 % Blood Gas Hemoglobin 12.3 G/DL Oxygen Delivery Device Non-Rebreathing Mask Blood Gas Liter Flow 15 L/M Pleural Fluid pH 7.5 Pleural Fluid WBC 5380 /MM3 Pleural Fluid RBC 148152 /MM3 Pleural Fluid Neutrophils 82 % Pleural Fluid Lymphocytes 9 % Pleural Fluid Monocytes 7 % Pleural Fluid Eosinophils 1 % Pleural Fluid Mesothelial 1 % Cells Pleural Fluid Total Protein 4.3 GM/DL Pleural Fluid LDH 1499 U/L Pleural Fluid Glucose 182 MG/DL Nasal Screen MRSA (PCR) NEGATIVE White Blood Count 114.2 TH/MM3 Red Blood Count 4.20 MIL/MM3 Hemoglobin 11.7 GM/DL Hematocrit 37.5 % Mean Corpuscular Volume 89.2 FL Mean Corpuscular Hemoglobin 27.9 PG Mean Corpuscular Hemoglobin 31.3 % Concent Red Cell Distribution Width 13.3 % Platelet Count 478 TH/MM3 Mean Platelet Volume 8.6 FL Neutrophils (%) (Auto) 97.6 % Lymphocytes (%) (Auto) 1.3 % Monocytes (%) (Auto) 0.9 % Eosinophils (%) (Auto) 0.0 % Basophils (%) (Auto) 0.2 % Neutrophils # (Auto) 111.6 TH/MM3 Lymphocytes # (Auto) 1.4 TH/MM3 Monocytes # (Auto) 1.0 TH/MM3 Eosinophils # (Auto) 0.0 TH/MM3 Basophils # (Auto) 0.2 TH/MM3 CBC Comment AUTO DIFF Differential Total Cells 100 Counted Neutrophils % (Manual) 69 % Band Neutrophils % 27 % Lymphocytes % 2 % Monocytes % 2 % Neutrophils # (Manual) 109.6 TH/MM3 Differential Comment FINAL DIFF MANUAL Toxic Granulation 1+ Toxic Vacuolation PRESENT Platelet Estimate HIGH Platelet Morphology Comment NORMAL Red Cell Morphology Comment NORMAL Test 02/15/17 02/16/17 20:37 03:09 Sodium Level 146 MEQ/L 148 MEQ/L Potassium Level 4.4 MEQ/L 4.2 MEQ/L Chloride Level 109 MEQ/L 112 MEQ/L Carbon Dioxide Level 25.4 MEQ/L 24.4 MEQ/L Anion Gap 12 MEQ/L 12 MEQ/L Blood Urea Nitrogen 57 MG/DL 58 MG/DL Creatinine 2.13 MG/DL 2.10 MG/DL Estimat Glomerular Filtration 31 ML/MIN 31 ML/MIN Rate Random Glucose 195 MG/DL 155 MG/DL Calcium Level 9.7 MG/DL 9.7 MG/DL Total Bilirubin 0.4 MG/DL 0.5 MG/DL Aspartate Amino Transf 14 U/L 14 U/L (AST/SGOT) Alanine Aminotransferase 13 U/L 14 U/L (ALT/SGPT) Alkaline Phosphatase 138 U/L 150 U/L Total Protein 6.2 GM/DL 6.2 GM/DL Albumin 2.6 GM/DL 2.5 GM/DL White Blood Count 109.7 TH/MM3 Red Blood Count 3.99 MIL/MM3 Hemoglobin 11.3 GM/DL Hematocrit 35.1 % Mean Corpuscular Volume 88.0 FL Mean Corpuscular Hemoglobin 28.3 PG Mean Corpuscular Hemoglobin 32.1 % Concent Red Cell Distribution Width 13.4 % Platelet Count 522 TH/MM3 Mean Platelet Volume 8.5 FL Neutrophils (%) (Auto) % Lymphocytes (%) (Auto) % Monocytes (%) (Auto) % Eosinophils (%) (Auto) % Basophils (%) (Auto) % Neutrophils # (Auto) TH/MM3 Lymphocytes # (Auto) TH/MM3 Monocytes # (Auto) TH/MM3 Eosinophils # (Auto) TH/MM3 Basophils # (Auto) TH/MM3 CBC Comment AUTO DIFF Differential Total Cells 200 Counted Neutrophils % (Manual) 85 % Band Neutrophils % 11 % Lymphocytes % 2 % Monocytes % 3 % Neutrophils # (Manual) 106.4 TH/MM3 Metamyelocytes 1 % Differential Comment FINAL DIFF MANUAL Platelet Estimate HIGH Platelet Morphology Comment NORMAL Culture Results Microbiology Date/Time Procedure Status Source Growth 02/15/17 13:46 Cancelled Fluid Pleural Fluid 02/15/17 13:46 Gram Stain - Final Resulted Fluid Pleural Fluid 02/15/17 13:46 Body Fluid Culture Resulted Fluid Pleural Fluid Pending 02/15/17 13:46 Acid Fast Stain Received Fluid Pleural Fluid Pending 02/15/17 13:46 Mycobacterial Culture Received Fluid Pleural Fluid Pending Imaging Studies Last 24 hours Impressions Chest X-Ray 02/16/17 0000 Signed Impressions: Service Date/Time: Thursday, February 16, 2017 02:56 - CONCLUSION: 1. Small caliber left chest tube with tiny left apical pneumothorax, decreased from February 15. Christian Dueñas MD Administered Medications Medications (Trade) Dose Ordered Sig/Debbie Route PRN Reason Start Time Stop Time Status Last Admin Dose Admin Pantoprazole Sodium (Protonix Inj) 40 mg DAILY IV 02/15/17 11:30 02/16/17 09:11 Chlorhexidine Gluconate (Chlorhexidine 2% Cloth) 3 pack Taper DAILY@04 TOP 02/16/17 04:00 02/12/18 03:59 02/15/17 21:18 Insulin Human Regular 1 1 Q6H SQ 02/15/17 11:30 02/15/17 17:19 Sodium Chloride (NS 1000 ml Inj) 1,000 ml @ 75 mls/hr [id number] IV 02/15/17 11:30 02/15/17 23:31 Objective Remarks GENERAL: Elderly male, lying in bed on 4L O2 via NC SKIN: Warm and dry. HEAD: Normocephalic. EYES: No injection or drainage. NECK: Supple, trachea midline. CARDIOVASCULAR: +S1/S2 RESPIRATORY: anterior mckinney with scattered rhonchi. GASTROINTESTINAL: Abdomen soft, non-tender, nondistended. EXTREMITIES: No cyanosis. left hand s/p amputation MUSCULOSKELETAL: Adequate muscle tone. NEUROLOGICAL: No obvious focal deficit. Awake, alert, and oriented x3. Assessment/Plan Problem List: (1) History of sarcoma of soft tissue Status: Acute Plan: 02/16/17: records requested from Dr. Tesfaye @ [facility]. await cytology + CT guided core needle biopsy of right lung mass through IR History November 2015: presented to ED at [facility]. Dr. Portillo ordered MRI, showed soft tissue mass, referred to Dr. Tesfaye at [facility] February 2016: frozen section of mass showed high-grade sarcoma. below amputation of left hand performed January 2017: presented to ED with dyspnea. CT chest showed pulmonary masses and pleural effusion. CT ab/pelvis: no mets (2) Pleural effusion on left Status: Acute Plan: --s/p thoracentesis and chest tube placement. --cytology pending. (3) Leukocytosis Status: Acute Plan: -- Leukocytosis with neutrophilia and bandemia and no peripheral blasts. --most likely reactive process such as leukemoid reaction from lung mets and sepsis or this could be from myeloproliferative disorder. --no peripheral blast. --BCR-ABL by FISH and AARON-2 mutation for evaluation of myeloproliferative disorder pending (4) Renal insufficiency Status: Acute (5) Hypercalcemia Status: Acute Plan: --IVF + 1 dose of Aredia (6) Altered mental status Status: Acute Plan: --?d/t metabolic encephalopathy? Assessment 76y/o male admitted to [facility] with respiratory insufficiency. Oncology consulted for evaluation of leukocytosis and bilateral pulmonary masses. 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 Sister Ashley is a registered nurse. She lives in [facility]. Her telephone number is [phone]. Attending Statement more awake and alert. SOB for bx right lung mass. D/W Dr Beltran. await records from [facility]. d/w pt regarding hospice vs palliative chemo in presence of RN. Pt is adamant about chemo. Will give chemo after the lung bx result. The exam, history, and the medical decision-making described in the above note were completed with the assistance of the mid-level provider. I reviewed and agree with the findings presented. I attest that I had a [id number] encounter with the patient on the same day, and personally performed and documented my assessment and findings in the medical record. Morenita Farooq Feb 16, 2017 11:04 Deven Schneider MD Feb 16, 2017 16:01
--- NOTE | 2017-02-16 11:40 | HHI.CCPN ---
Subjective Remarks/Hospital Course The patient is a 76-year-old who denies any significant past medical history, presented to [facility] ED with respiratory distress. The patient states that he has been short of breath for the past 2 weeks and progressively worsened. He also reports productive cough with brown phlegm, however, he denies any fever, chills or any constitutional symptoms. The patient denies any nausea, vomiting or abdominal pain. He has not seen a physician for several years and is not on any medications at home. The patient has a remote history of tobacco use and used to smoke a pack a day for several years. On arrival to the ED the patient was tachycardic with heart rate of 120s, tachypneic and hypoxic. He was placed on a non-rebreather mask with current saturation of 98-99%. The chest x-ray in the ER showed large left pleural effusion occupying approximately two-third of the left lung field along with pulmonary masses worrisome for metastatic disease. His laboratory data is significant for acute kidney injury with a BUN of 43, creatinine 1.70, hypercalcemia with calcium level 10.5. In addition his WBC was 110.2, associated with bandemia of 22. In the ER he was given Lasix [address] scan of the chest, abdomen and pelvis was ordered by the ED, in addition interventional radiology was consulted by ER for chest tube placement. 02/16 Patient s/p CT placement by IR yesterday with removal 3L hemorrhagic fluid upon insertion additional 500ml drained overnight. Pleural effusion consistent with exudative picture. Afebrile. Objective Vital Signs Date Time Temp Pulse Resp B/P Pulse Ox O2 Delivery O2 Flow Rate FiO2 02/16/17 10:00 110 02/16/17 09:59 94 Nasal Cannula 4.00 02/16/17 08:19 40 02/16/17 08:00 98.8 21 103/57 Intake and Output 02/15/17 02/15/17 02/16/17 08:00 16:00 00:00 Intake Total 622 ml Output Total 426 ml 850 ml Balance -426 ml -228 ml Result Diagram: 02/16/17 0309 02/16/17 0309 Other Results Laboratory Tests Test 02/15/17 12:43 Blood Gas Puncture Site RT RADIAL Blood Gas Patient Temperature 98.6 Blood Gas HCO3 23 mmol/L (22-26) Blood Gas Base Excess -2.0 mmol/L (-2-2) Blood Gas Oxygen Saturation 94 % (90-100) Arterial Blood pH 7.34 (7.380-7.420) Arterial Blood Partial 43 mmHg (38-42) Pressure CO2 Arterial Blood Partial 85 mmHG Pressure O2 (61-120) Arterial Blood Oxygen Content 16.4 Vol % (12.0-20.0) Arterial Blood 0.6 % (0-4) Carboxyhemoglobin Arterial Blood Methemoglobin 0.8 % (0-2) Blood Gas Hemoglobin 12.3 G/DL (12.0-16.0) Oxygen Delivery Device Non-Rebreathing Mask Blood Gas Liter Flow 15 L/M Imaging Last Impressions Chest X-Ray 02/16/17 0000 Signed Impressions: Service Date/Time: Thursday, February 16, 2017 02:56 - CONCLUSION: 1. Small caliber left chest tube with tiny left apical pneumothorax, decreased from February 15. Christian Dueñas MD Head CT 02/15/17 0000 Signed Impressions: Service Date/Time: Wednesday, February 15, 2017 11:53 - CONCLUSION: Marked motion artifact. I do not see evidence for a mass. Nick Murphy MD FACR Chest Tube Insertion 02/15/17 0000 Signed Impressions: Service Date/Time: Wednesday, February 15, 2017 13:23 - CONCLUSION: Uncomplicated left chest tube placement as above. 3 L of bloody fluid was removed. Samples to the lab as requested. Metastatic lesions seen throughout the lungs bilaterally. Jermaine Chisholm Jr., MD Chest CT 02/15/17 0000 Signed Impressions: Service Date/Time: Wednesday, February 15, 2017 12:04 - CONCLUSION: Markedly abnormal CT scan of the chest with complete opacification of left hemithorax with consolidative changes about the left lung. Multiple soft tissue masses are seen on the right. Easiest way to obtain diagnosis is biopsy of the large mass anteriorly on the right. This could be biopsies percutaneously. Thoracentesis would be of benefit with tube placement on the left. Nick Murphy MD FACR Abdomen/Pelvis CT 02/15/17 0000 Signed Impressions: Service Date/Time: Wednesday, February 15, 2017 12:04 - CONCLUSION: 1. Large pleural effusion on the left with pleural thickening and parenchymal mass on the right. Lung cancer is suspected. I do not see obvious metastatic disease in the abdomen. 2. Gallstones. Nick Murphy MD FACR Objective Remarks GENERAL: Patient is 76 yo lying in bed in NAD. SKIN: Warm and dry. HEAD: Normocephalic. EYES: No scleral icterus. No injection or drainage. NECK: Supple, trachea midline. No JVD or lymphadenopathy. CARDIOVASCULAR: Tachycardic without murmurs, gallops, or rubs. RESPIRATORY: Breath sounds equal bilaterally. No accessory muscle use. GASTROINTESTINAL: Abdomen soft, non-tender, nondistended. MUSCULOSKELETAL: No cyanosis, or edema. PArtial amputation of left arm noted. BACK: Nontender without obvious deformity. No CVA tenderness. Neuro: Awake, alert A/P Assessment and Plan 1. Acute hypoxemic respiratory failure. 2. Large left pleural effusion, s/p CT placement 3. Pulmonary masses, likely secondary to metastatic disease. 4. Acute kidney injury. 5. Hyperglycemia. 6. Hypercalcemia, likely related to malignancy. 7. Leukocytosis. possibly related to leukemoid reaction from lung mets 8 Hx Osteosarcoma with mets Plan Neuro: Monitor neuro status closely and avoid any sedatives. CT brain : no acute disease Pulm: Continue with oxygen and maintain sats above 92%. Bronchodilators, NPPP p.r.n. for respiratory distress. Monitor CT drainage- Pulm is following For CT guided lung biopsy of right lung mass Pleural effusions consistent with exudative fluid likely related to malignancy follow up on cytology results. CV: Monitor HR and BP and maintain MAP> 65 mmHg. : Monitor renal function, I's and O's and avoid nephrotoxins. Cr: 2.10, Renal eval. change IVF 1/2NS@84ml/hr CT abdomen/pelvis: no metastatic disease, b/l renal cysts. Patient s/p Aredia x 1 dose yesterday for hypercalcemia ( Ca 10.5) 9.7 this morning. GI: Start PO diabetic diet, on Protonix 40 mg IV daily for GI prophylaxis. ID: Continue with empiric abx( Zosyn )and monitor for signs of infections( fever and WBC). Check sputum culture & urinalysis with culture if indicated. Heme: Monitor CBC. Oncology is following Endo: SSI with Accu-Chek q. 6-hours for glycemic control. GI prophylaxis with Protonix 40 mg daily and DVT prophylaxis with SCDs. Non chemical anticoagulation prophylaxis given hemorrhagic effusion Level 3 Elkin Perales MD Feb 16, 2017 11:40
[2017-02-16] MEDS: PIPERACIL-TAZO 3.375 GM PREMIX 50 ML IV SCH ×2 (12:17→20:05)
[2017-02-16] MEDS: SODIUM CHLOR 0.45% 1000 ML INJ 1,000 ML IV SCH ×2 (12:17→23:55)
--- NOTE | 2017-02-16 14:20 | PD.CONS ---
HPI Service Nephrology Consult Requested By Dr. Bernardo Reason for Consult [facility] Primary Care Physician Non-Staff History of Present Illness The patient is a 76 yo [place] male who presented to the ED on 02/15 with complaints of progressively worsening SOB x2 weeks. He is a very poor historian, so much of information is obtained through previous medical records. 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 This was all performed at [facility] in [place] , so further information is not available at the present. Uncertain if he had to have chemo or radiation, nor if he has been following locally with any physicians. On admission, it was noted that he had a severe L pleural effusion and subsequently had to have L chest tube placed. Imaging suspicious for metastatic disease. Initial drainage from CT was 3L. He has had aboout 500mL overnight. We were consulted for [facility]AC. There are no other admission or labs to review to see where the patient's baseline renal functions actually are. 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 Other medical hx not known Past Surgical History L partial arm amputation Reported Medications Reported Meds & Active Scripts Active No Active Prescriptions or Reported Medications Active Ordered Medications Current Medications Medications (Trade) Dose Ordered Sig/Debbie Route Start Time Stop Time Status Last Admin (NS Flush) 2 ml UNSCH PRN IVF 02/15/17 08:15 (Protonix Inj) 40 mg DAILY IV 02/15/17 11:30 02/16/17 09:11 Miscellaneous Information 1 Q361D XX 02/15/17 11:30 (Chlorhexidine 2% Cloth) 3 pack Taper DAILY@04 TOP 02/16/17 04:00 02/12/18 03:59 02/15/17 21:18 (Chlorhexidine 2% Cloth) 3 pack UNSCH PRN TOP 02/15/17 11:30 (D50w (Vial) Inj) 25 ml UNSCH PRN IV PUSH 02/15/17 11:30 (Glucagon Inj) 1 mg UNSCH PRN OTHER 02/15/17 11:30 Insulin Human Regular 1 1 Q6H SQ 02/15/17 11:30 02/15/17 17:19 Piperacillin Sod/ Tazobactam Sod 50 ml @ 100 mls/hr Q8H IV 02/16/17 13:00 02/16/17 12:17 (1/2 NS 1000 ml Inj) 1,000 ml @ 84 mls/hr [id number] IV 02/16/17 12:00 02/16/17 12:17 Family History Uncertain Social History Lives alone. Has sister who he speaks with in [facility] who is a registered nurse. Social EtOH use as noted in chart No tobacco use or illicits (Rachel Blue) Physical Exam Vital Signs Vital Signs Date Time Temp Pulse Resp B/P Pulse Ox O2 Delivery O2 Flow Rate FiO2 02/16/17 12:00 97.4 111 27 114/60 91 02/16/17 10:00 110 02/16/17 09:59 94 Nasal Cannula 4.00 02/16/17 08:19 92 Venturi Mask 40 02/16/17 08:00 107 02/16/17 08:00 98.8 110 21 103/57 94 02/16/17 06:00 103 02/16/17 04:00 99.6 106 20 108/55 96 02/16/17 04:00 106 02/16/17 03:59 93 Venturi Mask 6.00 40 02/16/17 02:00 103 02/16/17 00:06 95 Venturi Mask 7.00 50 02/16/17 00:00 110 02/16/17 00:00 98.4 110 24 100/58 96 02/15/17 22:00 103 02/15/17 20:00 98.8 101 25 105/55 99 02/15/17 20:00 101 02/15/17 19:20 97 Non-Rebreather 15.00 100 02/15/17 18:00 101 02/15/17 18:00 99.0 110 16 108/58 97 02/15/17 18:00 99.0 103 18 100/58 97 02/15/17 16:00 101 02/15/17 15:57 99.0 103 16 102/57 97 02/15/17 15:00 101 02/15/17 14:26 104 24 111/56 98 Non-Rebreather 15 02/15/17 14:20 102 24 107/57 98 Non-Rebreather 15 Physical Exam GENERAL: Sitting up in bed. Awake and alert. Continuously says he is fine when asked medical history questions. SKIN: Warm and dry. HEAD: Atraumatic. Normocephalic. EYES: Pupils equal and round. No scleral icterus. No injection or drainage. ENT: No nasal bleeding or discharge. Mucous membranes pink and moist. NECK: Trachea midline. No JVD. CARDIOVASCULAR: Regular rate and rhythm. RESPIRATORY: No accessory muscle use. Clear to auscultation. Breath sounds equal bilaterally. Chest tube present L side with serosanguineous discharge. GASTROINTESTINAL: Abdomen soft, non-tender, nondistended. Hepatic and splenic margins not palpable. MUSCULOSKELETAL: Extremities without clubbing, cyanosis, or edema. No obvious deformities. NEUROLOGICAL: Awake and alert. PSYCHIATRIC: Inappropriate mood and affect; insight and judgment abnormal. Laboratory Laboratory Tests Test 02/15/17 02/15/17 02/15/17 02/16/17 15:10 16:54 20:37 03:09 Nasal Screen MRSA (PCR) NEGATIVE White Blood Count 114.2 109.7 Red Blood Count 4.20 3.99 Hemoglobin 11.7 11.3 Hematocrit 37.5 35.1 Mean Corpuscular Volume 89.2 88.0 Mean Corpuscular Hemoglobin 27.9 28.3 Mean Corpuscular Hemoglobin 31.3 32.1 Concent Red Cell Distribution Width 13.3 13.4 Platelet Count 478 522 Mean Platelet Volume 8.6 8.5 Neutrophils (%) (Auto) 97.6 Lymphocytes (%) (Auto) 1.3 Monocytes (%) (Auto) 0.9 Eosinophils (%) (Auto) 0.0 Basophils (%) (Auto) 0.2 Neutrophils # (Auto) 111.6 Lymphocytes # (Auto) 1.4 Monocytes # (Auto) 1.0 Eosinophils # (Auto) 0.0 Basophils # (Auto) 0.2 CBC Comment AUTO DIFF AUTO DIFF Differential Total Cells 100 200 Counted Neutrophils % (Manual) 69 85 Band Neutrophils % 27 11 Lymphocytes % 2 2 Monocytes % 2 3 Neutrophils # (Manual) 109.6 106.4 Differential Comment FINAL DIFF FINAL DIFF MANUAL MANUAL Toxic Granulation 1+ Toxic Vacuolation PRESENT Platelet Estimate HIGH HIGH Platelet Morphology Comment NORMAL NORMAL Red Cell Morphology Comment NORMAL Sodium Level 146 148 Potassium Level 4.4 4.2 Chloride Level 109 112 Carbon Dioxide Level 25.4 24.4 Anion Gap 12 12 Blood Urea Nitrogen 57 58 Creatinine 2.13 2.10 Estimat Glomerular Filtration 31 31 Rate Random Glucose 195 155 Calcium Level 9.7 9.7 Total Bilirubin 0.4 0.5 Aspartate Amino Transf 14 14 (AST/SGOT) Alanine Aminotransferase 13 14 (ALT/SGPT) Alkaline Phosphatase 138 150 Total Protein 6.2 6.2 Albumin 2.6 2.5 Metamyelocytes 1 Date/Time Procedure Status Source Growth 02/15/17 13:46 Gram Stain - Final Resulted Fluid Pleural Fluid 02/15/17 13:46 Body Fluid Culture - Preliminary Resulted Fluid Pleural Fluid NO GROWTH IN 24 HOURS. 02/15/17 13:46 Acid Fast Stain Received Fluid Pleural Fluid Pending 02/15/17 13:46 Mycobacterial Culture Received Fluid Pleural Fluid Pending 02/15/17 13:46 Cancelled Fluid Pleural Fluid (Rachel Blue) Result Diagram: 02/16/17 0309 02/16/17 0309 Imaging Last Impressions Chest X-Ray 02/16/17 0000 Signed Impressions: Service Date/Time: Thursday, February 16, 2017 02:56 - CONCLUSION: 1. Small caliber left chest tube with tiny left apical pneumothorax, decreased from February 15. Christian Dueñas MD Head CT 02/15/17 0000 Signed Impressions: Service Date/Time: Wednesday, February 15, 2017 11:53 - CONCLUSION: Marked motion artifact. I do not see evidence for a mass. Nick Murphy MD FACR Chest Tube Insertion 02/15/17 0000 Signed Impressions: Service Date/Time: Wednesday, February 15, 2017 13:23 - CONCLUSION: Uncomplicated left chest tube placement as above. 3 L of bloody fluid was removed. Samples to the lab as requested. Metastatic lesions seen throughout the lungs bilaterally. Jermaine Chisholm Jr., MD Chest CT 02/15/17 0000 Signed Impressions: Service Date/Time: Wednesday, February 15, 2017 12:04 - CONCLUSION: Markedly abnormal CT scan of the chest with complete opacification of left hemithorax with consolidative changes about the left lung. Multiple soft tissue masses are seen on the right. Easiest way to obtain diagnosis is biopsy of the large mass anteriorly on the right. This could be biopsies percutaneously. Thoracentesis would be of benefit with tube placement on the left. Nick Murphy MD FACR Abdomen/Pelvis CT 02/15/17 0000 Signed Impressions: Service Date/Time: Wednesday, February 15, 2017 12:04 - CONCLUSION: 1. Large pleural effusion on the left with pleural thickening and parenchymal mass on the right. Lung cancer is suspected. I do not see obvious metastatic disease in the abdomen. 2. Gallstones. Nick Murphy MD FACR (Rachel Blue) Assessment and Plan Problem List: (1) Renal insufficiency Plan: Uncertain of the patient's baseline renal functions. SCr bela this AM and could be in relation to contrast nephropathy as he was exposed to iodinated contrast x2 on 02/15. Continue on IVF (changed to 1/2NS this AM given hypernatremia). Monitor I&Os. Imaging reviewed and mentioned no obstructive uropathy. Will check renal US to check parenchyma. Check serology. Medications should be adjusted for the patient's renal insufficiency. Avoid nephrotoxic medications such as iodinated contrast dyes and NSAIDs. Avoid gadolinium when eGFR <30. (2) Lung mass Plan: Suspicious for mets. Pending biopsy today. Oncology on board. (3) Leukocytosis Plan: Mgmt as per oncology (4) Hypercalcemia Plan: Resolved with Aredia. (5) Hypernatremia Plan: Related to impaired free water intake. IVF changed this AM from NS to 1/ 2NS. May need D5W if worsened. (Rachel Blue) Assessment and Plan Renal ultrasound indicating cortical thinning which is indicative of chronic kidney disease pre-existing this admission but still uncertain as to what the patient's baseline creatinine level is. Most likely has acute on chronic renal insufficiency as indicated above secondary to contrast exposure. The exam, history, and the medical decision-making described in the above note were completed with the assistance of the PA-Bessie. I reviewed and agree with the findings presented. I attest that I had a [id number] encounter with the patient on the same day, and personally performed and documented my assessment and findings in the medical record. (Sondra Davison MD) Rachel Blue Feb 16, 2017 14:20 Sondra Davison MD Feb 16, 2017 20:00
[2017-02-16] MEDS ORDERED: LIDOCAINE 1%/EPINEPHrine 1:100,000 SOLN 20 ML VIAL ONE (14:24)
[2017-02-16] MEDS ORDERED: fentaNYL CITRATE 250 MCG/5 ML AMP ONE (14:39)
[2017-02-16] MEDS ORDERED: MIDAZOLAM HCL 5 MG/5 ML VIAL ONE (14:39)
--- NOTE | 2017-02-16 16:30 | HHI.PR ---
Subjective Remarks Chest tube in place needle lung biopsy done no distress on O2 Objective Vital Signs Date Time Temp Pulse Resp B/P Pulse Ox O2 Delivery O2 Flow Rate FiO2 02/16/17 12:00 97.4 111 27 114/60 91 02/16/17 10:00 110 02/16/17 09:59 94 Nasal Cannula 4.00 02/16/17 08:19 92 Venturi Mask 40 02/16/17 08:00 107 02/16/17 08:00 98.8 110 21 103/57 94 02/16/17 06:00 103 02/16/17 04:00 99.6 106 20 108/55 96 02/16/17 04:00 106 02/16/17 03:59 93 Venturi Mask 6.00 40 02/16/17 02:00 103 02/16/17 00:06 95 Venturi Mask 7.00 50 02/16/17 00:00 110 02/16/17 00:00 98.4 110 24 100/58 96 02/15/17 22:00 103 02/15/17 20:00 98.8 101 25 105/55 99 02/15/17 20:00 101 02/15/17 19:20 97 Non-Rebreather 15.00 100 02/15/17 18:00 101 02/15/17 18:00 99.0 110 16 108/58 97 02/15/17 18:00 99.0 103 18 100/58 97 I/O 02/15/17 02/15/17 02/15/17 02/16/17 02/16/17 02/16/17 07:00 15:00 23:00 07:00 15:00 23:00 Intake Total 622 ml 622 ml Output Total 1276 ml 600 ml Balance -654 ml 22 ml Intake IV Total 622 ml 622 ml Output Urine Total 550 ml 500 ml Stool Total 1 ml Chest Tube Drainage Total 725 ml 100 ml Result Diagram: 02/16/17 0309 02/16/17 0309 Medications and IVs GENERAL: SKIN: Warm and dry. HEAD: Atraumatic. Normocephalic. EYES: Pupils equal and round. No scleral icterus. No injection or drainage. ENT: No nasal bleeding or discharge. Mucous membranes pink and moist. NECK: Trachea midline. No JVD. CARDIOVASCULAR: Regular rate and rhythm. RESPIRATORY: No accessory muscle use. DECREASE BREATH SOUNDS RIGHT BASE. GASTROINTESTINAL: Abdomen soft, non-tender, nondistended. Hepatic and splenic margins not palpable. MUSCULOSKELETAL: Extremities without clubbing, cyanosis, or edema. No obvious deformities. NEUROLOGICAL: Awake and alert. No obvious cranial nerve deficits. Motor grossly within normal limits. Five out of 5 muscle strength in the arms and legs. Normal speech. PSYCHIATRIC: Appropriate mood and affect; insight and judgment normal. Assessment and Plan Assessment and Plan RESPIRATORY FAILURE LUNG MASSES ? METS PLEURAL EFFUSION , MOST LIKELY MALIGNANT PLAN CHECK CYTOLOGY , PLEURAL FLUID CHECK BIOPSY RESULTS O2 NEEDED ANTIBIOTICS FOLLOW WBC COUNT Jerson Arthur MD Feb 16, 2017 16:30
--- NOTE | 2017-02-16 16:55 | RADRPT ---
EXAM DATE/TIME: 02/16/2017 16:31 [facility] COMPARISON: CHEST EXPIRATION ONLY, February 16, 2017, 2:56. INDICATIONS : Status post lung biopsy. MEDICAL HISTORY : Pneumothorax, Pulmonary masses, Acute hypoxemic respiratory failure, Hyperglycemia,Hypercalcemia, Erwin kocytosis SURGICAL HISTORY : Tonsillectomy. Lung biopsy ENCOUNTER: Subsequent ACUITY: 2 days PAIN SCORE: 3/10 LOCATION: Right chest FINDINGS: A single frontal expiratory view of the chest was performed. Extensive bilateral pulmonary nodules. C ope loop thoracostomy tube in the left base but there still appears to be a regional effusion. No pne umothorax post biopsy. Osseous structures are grossly intact. Heart size is upper limits of normal. CONCLUSION: 1. Bilateral bulky pulmonary nodules. 2. Left-sided pleural effusion. There is a [place] loop catheter seen just cephalad to the effusion. 3. No pneumothorax post biopsy. Dago Hines MD on February 16, 2017 at 16:52 Board Certified Radiologist. This report was verified electronically.
--- NOTE | 2017-02-16 17:09 | RADRPT ---
EXAM DATE/TIME: 02/16/2017 15:26 [facility] COMPARISON: No previous studies available for comparison. INDICATIONS : Lung masses. SEDATION TIME: 30 minutes BIOPSY SITE: Right Lung MEDICATION(S): 1.) 0.5 mg midazolam (Versed) IV 2.) 25 mcg fentanyl (Sublimaze) IV DEVICE(S): 1.) 20 gauge Temno core biopsy needle MEDICAL HISTORY : Renal insufficiency, Left hand sarcoma SURGICAL HISTORY : Amputation left hand ENCOUNTER: Initial ACUITY: 1 day PAIN SCORE: 0/10 LOCATION: Right chest A total of five core specimen(s) were obtained and sent to the laboratory for pathologic evaluation. PROCEDURE: 1. CT guided RIGHT LUNG biopsy. 2. Conscious sedation with continuous EKG and oximetry monitoring. Prior to the procedure informed consent was obtained. Any appropriate prior imaging studies were rev iewed. Using automated exposure control and adjustment of the mA and/or kV according to patient size, radiation dose was kept as low as reasonably achievable to obtain optimal diagnostic quality images. The site was prepped in a sterile fashion. Full sterile technique was used, including cap, mask, hosea rile gloves and gown and a large sterile sheet. Hand hygiene and 2% chlorhexidine and/or betadine/al cohol prep was utilized per protocol for cutaneous antisepsis. The skin and subcutaneous tissues wer e infiltrated with local anesthetic solution. With CT guidance the previously identified target was localized. Biopsy was performed using the presc ribed needle as above. Adequate hemostasis was obtained with compression at the puncture site. Follow-up CT scan reveals no pneumothorax. Conscious sedation was performed with the prescribed dosages and duration as above in the presence of an independent trained radiology nurse to assist in the monitoring of the patient. EKG and oximetry remained stable throughout the procedure. The patient tolerated the procedure well and there were no complications. The patient was sent to Radiology Outpatient Unit in stable condition. CONCLUSION: Uncomplicated CT guided biopsy. Mark Martell MD on February 16, 2017 at 17:07 Board Certified Radiologist. This report was verified electronically.
[2017-02-16 17:41] LABS: KAPPA LAMBDA RATIO 1.57 (1.57-3.93); TOTAL PROTEIN SPE 5.9 GM/DL (6.0-7.6)
--- NOTE | 2017-02-16 19:02 | RADRPT ---
EXAM DATE/TIME: 02/16/2017 17:36 [facility] COMPARISON: No previous studies available for comparison. INDICATIONS : Increased Bun and Creatinine. MEDICAL HISTORY : Soft tissue sarcoma left hand. SURGICAL HISTORY : Tonsillectomy. Partial amputation left hand. ENCOUNTER: Initial ACUITY: 1 day PAIN SCORE: 0/10 LOCATION: Bilateral flank MEASUREMENTS: RIGHT KIDNEY: 13.7 x 5.3 x 5.8 cm LEFT KIDNEY: 12.1 x 5.0 x 5.6 cm FINDINGS: Bilateral renal cortical thinning is noted. Multiple bilateral renal cysts are noted. Within the uppe r pole on the right there are two cysts measuring 3.5 x 3.5 x 2.6 cm and 1.9 x 1.7 x 1.7 cm. Within t he lower pole on the right there is a 2.1 x 1.4 x 1.4 cm cyst. Within the upper pole on the left ther e are 2 cysts measuring 4.1 x 3.9 x 3.8 cm and 2.7 x 2.8 x 3.0 cm. Within the lower pole on the left there is a cyst measuring 3.0 x 3.6 x 2.8 cm. No solid renal mass is noted. No calcified renal stone is noted. The urinary bladder is nondistended and contains a Chan catheter. Incidental note is made of gallstones within the gallbladder. A small left pleural effusion is noted. CONCLUSION: Multiple bilateral renal cysts. Renal cortical thinning. Cholelithiasis. Small left pleural effusion. Pola Cortes MD on February 16, 2017 at 18:57 Board Certified Radiologist. This report was verified electronically.
--- NOTE | 2017-02-16 21:31 | EKG ---
Date Performed: 02/15/2017 Time Performed: 08:09:21 PTAGE: 76 years EKG: SINUS TACHYCARDIA WITH SHORT OK INTERVAL ABNORMAL RHYTHM ECG NO PREVIOUS TRACING DOCTOR: Meaghan Sánchez Interpretating Date/Time 02/16/2017 21:30:05
[2017-02-17] VITALS (13 sets, daily range): BP systolic 91–106; BP diastolic 51–76; PULSE 69–117; RESP 17–28; TEMP 97.5–98.2; O2SAT 90–98
[2017-02-17] MEDS: RESP: ALBUTEROL 2.5 MG/IPRATROPIUM 0.5 MG NEB (SCH) INH ×6 (02:49→23:09)
[2017-02-17] MEDS: CHLORHEXIDINE GLUCONATE 2 % 1 PACK (2 CLOTHS) TOP SCH (04:00)
[2017-02-17] MEDS: PIPERACIL-TAZO 3.375 GM PREMIX 50 ML IV SCH ×3 (04:59→21:11)
[2017-02-17] MEDS: INSULIN NovoLIN REGULAR SUPPLEMENTAL SCALE SQ SCH ×4 (04:59→23:33)
[2017-02-17 05:24] LABS: BICARBONATE 24.4 MEQ/L (21.0-32.0); POTASSIUM 3.6 MEQ/L (3.5-5.1)
[2017-02-17 05:27] LABS: HEMATOCRIT 32.7 % (39.0-51.0); MEAN CELL VOLUME 89.2 FL (80.0-100.0); MEAN CORPUSCULAR HGB CONC 31.4 % (32.0-36.0); PLATELET COUNT 430 TH/MM3 (150-450); RED BLOOD COUNT 3.67 MIL/MM3 (4.50-5.90); RED CELL DISTRIBUTION WIDTH 13.5 % (11.6-17.2); WHITE BLOOD COUNT 104.6 TH/MM3 (4.0-11.0)
[2017-02-17 06:13] LABS: HEMO FLAGS AUTO DIFF
--- NOTE | 2017-02-17 06:33 | RADRPT ---
EXAM DATE/TIME: 02/17/2017 04:48 [place] COMPARISON: CHEST SINGLE AP, February 15, 2017, 8:12. INDICATIONS : Shortness of breath. MEDICAL HISTORY : None. SURGICAL HISTORY : None. ENCOUNTER: Subsequent ACUITY: 3 days PAIN SCORE: Non-responsive. LOCATION: Bilateral chest FINDINGS: Small caliber left chest tube has been placed and there is marked reduction in size of left pleural e ffusion. Multiple bilateral lung masses again noted. No significant pneumothorax. CONCLUSION: 1. Placement of small caliber left chest tube with marked decrease in size of left pleural effusion s kailey February 15. Bilateral lung masses again noted. Christian Dueñas MD on February 17, 2017 at 6:30 Board Certified Radiologist. This report was verified electronically.
[2017-02-17 06:59] LABS: BANDS 17 % (0-6); MYELOCYTES 1 % (0-0); NEUTROPHIL # MANUAL DIFF 88.9 TH/MM3 (1.8-7.7); PLATELET ESTIMATE SMEAR NORMAL (NORMAL); PLATELET MORPHOLOGY NORMAL (NORMAL); POLYS (SEG NEUTROPHILS) 67 % (16-70); SCAN/DIFF FINAL DIFF MANUAL; TOXIC GRANULATION 1+ (NORMAL); WBC DIFF SAMPLE 100
[2017-02-17 07:00] LABS: TOXIC VACUOLATION PRESENT (NONE SEEN)
[2017-02-17] MEDS: PANTOPRAZOLE SODIUM 40 MG VIAL IV SCH (09:25)
[2017-02-17] MEDS: RESP: ALBUTEROL 2.5 MG/IPRATROPIUM 0.5 MG NEB (PRN) INH (09:49)
--- NOTE | 2017-02-17 11:40 | HHI.CCPN ---
Subjective Remarks/Hospital Course The patient is a 76-year-old who denies any significant past medical history, presented to [facility] ED with respiratory distress. The patient states that he has been short of breath for the past 2 weeks and progressively worsened. He also reports productive cough with brown phlegm, however, he denies any fever, chills or any constitutional symptoms. The patient denies any nausea, vomiting or abdominal pain. He has not seen a physician for several years and is not on any medications at home. The patient has a remote history of tobacco use and used to smoke a pack a day for several years. On arrival to the ED the patient was tachycardic with heart rate of 120s, tachypneic and hypoxic. He was placed on a non-rebreather mask with current saturation of 98-99%. The chest x-ray in the ER showed large left pleural effusion occupying approximately two-third of the left lung field along with pulmonary masses worrisome for metastatic disease. His laboratory data is significant for acute kidney injury with a BUN of 43, creatinine 1.70, hypercalcemia with calcium level 10.5. In addition his WBC was 110.2, associated with bandemia of 22. In the ER he was given Lasix [address] A [address] scan of the chest, abdomen and pelvis was ordered by the ED, in addition interventional radiology was consulted by ER for chest tube placement. 02/16 Patient s/p CT placement by IR yesterday with removal 3L hemorrhagic fluid upon insertion additional 500ml drained overnight. Pleural effusion consistent with exudative picture. Afebrile. 02/17 No acute events overnight. Approximately 300 cc serosanguineous fluid draining from left chest tube. Patient's resting comfortably no dyspnea noted. Objective Vital Signs Date Time Temp Pulse Resp B/P Pulse Ox O2 Delivery O2 Flow Rate FiO2 02/17/17 07:39 93 Nasal Cannula 3.00 02/17/17 06:00 69 02/17/17 05:00 98.0 22 104/58 02/16/17 08:19 40 Intake and Output 02/16/17 02/16/17 02/17/17 08:00 16:00 00:00 Intake Total 622 ml 856 ml 1554 ml Output Total 600 ml 1200 ml 930 ml Balance 22 ml -344 ml 624 ml Result Diagram: 02/17/17 0420 02/17/17 0420 Imaging Last Impressions Chest X-Ray 02/16/17 0000 Signed Impressions: Service Date/Time: Thursday, February 16, 2017 02:56 - CONCLUSION: 1. Small caliber left chest tube with tiny left apical pneumothorax, decreased from February 15. Christian Dueñas MD Head CT 02/15/17 0000 Signed Impressions: Service Date/Time: Wednesday, February 15, 2017 11:53 - CONCLUSION: Marked motion artifact. I do not see evidence for a mass. Nick Murphy MD FACR Chest Tube Insertion 02/15/17 Signed Impressions: Service Date/Time: Wednesday, February 15, 2017 13:23 - CONCLUSION: Uncomplicated left chest tube placement as above. 3 L of bloody fluid was removed. Samples to the lab as requested. Metastatic lesions seen throughout the lungs bilaterally. Jermaine Chisholm Jr., MD Chest CT 02/15/17 0000 Signed Impressions: Service Date/Time: Wednesday, February 15, 2017 12:04 - CONCLUSION: Markedly abnormal CT scan of the chest with complete opacification of left hemithorax with consolidative changes about the left lung. Multiple soft tissue masses are seen on the right. Easiest way to obtain diagnosis is biopsy of the large mass anteriorly on the right. This could be biopsies percutaneously. Thoracentesis would be of benefit with tube placement on the left. Nick Murphy MD FACR Abdomen/Pelvis CT 02/15/17 Signed Impressions: Service Date/Time: Wednesday, February 15, 2017 12:04 - CONCLUSION: 1. Large pleural effusion on the left with pleural thickening and parenchymal mass on the right. Lung cancer is suspected. I do not see obvious metastatic disease in the abdomen. 2. Gallstones. Nick Murphy MD FACR Objective Remarks GENERAL: Patient is 76 yo lying in bed in NAD. SKIN: Warm and dry. HEAD: Normocephalic. EYES: No scleral icterus. No injection or drainage. NECK: Supple, trachea midline. No JVD or lymphadenopathy. CARDIOVASCULAR: Tachycardic without murmurs, gallops, or rubs. RESPIRATORY: Breath sounds equal bilaterally. No accessory muscle use. GASTROINTESTINAL: Abdomen soft, non-tender, nondistended. MUSCULOSKELETAL: No cyanosis, or edema. PArtial amputation of left arm noted. BACK: Nontender without obvious deformity. No CVA tenderness. Neuro: Awake, alert A/P Assessment and Plan 1. Acute hypoxemic respiratory failure. 2. Large left pleural effusion, s/p CT placement 3. Pulmonary masses, likely secondary to metastatic disease. 4. Acute kidney injury. 5. Hyperglycemia. 6. Hypercalcemia, likely related to malignancy. 7. Leukocytosis. possibly related to leukemoid reaction from lung mets 8 Hx Osteosarcoma with mets Plan Neuro: Monitor neuro status closely and avoid any sedatives. CT brain : no acute disease Pulm: Continue with oxygen and maintain sats above 92%. Bronchodilators, NPPP p.r.n. for respiratory distress. Monitor CT drainage- Pulm is following For CT guided lung biopsy of right lung mass Pleural effusions consistent with exudative fluid likely related to malignancy follow up on cytology results pending CV: Monitor HR and BP and maintain MAP> 65 mmHg. : Monitor renal function, I's and O's and avoid nephrotoxins. Improvement -Cr: From 2.10 21.72, continue IVF 1/2NS@84ml/hr Nephrology following CT abdomen/pelvis: no metastatic disease, b/l renal cysts. Patient s/p Aredia x 1 dose yesterday for hypercalcemia ( Ca 10.5) 9.7 this morning. GI: Start PO diabetic diet, on Protonix 40 mg IV daily for GI prophylaxis. ID: Continue with empiric abx( Zosyn )and monitor for signs of infections( fever and WBC). Check sputum culture & urinalysis with culture if indicated. Heme: Monitor CBC. Oncology is following Endo: SSI with Accu-Chek q. 6-hours for glycemic control. GI prophylaxis with Protonix 40 mg daily and DVT prophylaxis with SCDs. No pharmacological anticoagulation prophylaxis given hemorrhagic effusion Level 3 Dispo: Discussed with Ashleyjamel Bustos [phone] (sister). Palliative Care also consulted after discussion with Ashley. Physician Aixa Devries MD Feb 17, 2017 11:40
[2017-02-17 11:59] LABS: BACTERIA, URINE FEW /hpf; BLOOD, URINE LARGE (NEG); COMMENT (UR) CULTURE INDICATED; CULTURE IF INDICATED CULTURE INDICATED; GLUCOSE,URINE NEG (NEG); KETONE, URINE NEG (NEG); NITRITE,URINE NEG (NEG); PH, URINE 5.5 (5.0-8.5); URIC ACID CRYSTALS, URINE MANY /hpf; URINE COLOR YELLOW (YELLW/STRAW)
--- NOTE | 2017-02-17 12:42 | PD.ONC.PN ---
Subjective Subjective Remarks Afebrile overnight. Pt resting in bed in no distress. He is asking for water. He has a chest tube to the L chest with sanguinous drainage noted. Objective Data Date Time Temp Pulse Resp B/P Pulse Ox O2 Delivery O2 Flow Rate FiO2 02/17/17 07:39 93 Nasal Cannula 3.00 02/17/17 06:00 69 02/17/17 05:00 98.0 103 22 104/58 92 02/17/17 04:00 103 02/17/17 02:50 94 Nasal Cannula 3.00 02/17/17 02:00 97 02/17/17 00:00 98.2 103 17 99/58 93 02/17/17 00:00 103 02/16/17 22:00 100 02/16/17 20:00 98.4 111 24 103/58 93 02/16/17 20:00 111 02/16/17 20:00 98.4 111 24 103/58 93 02/16/17 19:26 93 Nasal Cannula 4.00 02/16/17 16:45 96.4 116 25 102/59 93 02/17/17 02/17/17 02/17/17 07:00 15:00 23:00 Intake Total 635 ml Output Total 700 ml Balance -65 ml Result Diagram: 02/17/17 0420 02/17/17 042 Laboratory Results Laboratory Tests Test 02/16/17 02/17/17 02/17/17 16:30 04:20 11:00 Parathyroid Hormone (Intact) 36.3 PG/ML Complement C3 145 MG/DL Complement C4 30 MG/DL Total Protein 5.9 GM/DL 25-Hydroxy Vitamin D Total 10.0 ng/ML Immunoglobulin G Total 497 MG/DL Immunoglobulin A 167 MG/DL Immunoglobulin M 41 MG/DL Immunoglobulin [place]/Lambda 1.57 Ratio [place] Light Chain Analysis 137 MG/DL Lambda Light Chain Analysis 87 MG/DL White Blood Count 104.6 TH/MM3 Red Blood Count 3.67 MIL/MM3 Hemoglobin 10.3 GM/DL Hematocrit 32.7 % Mean Corpuscular Volume 89.2 FL Mean Corpuscular Hemoglobin 28.0 PG Mean Corpuscular Hemoglobin 31.4 % Concent Red Cell Distribution Width 13.5 % Platelet Count 430 TH/MM3 Mean Platelet Volume 8.5 FL Neutrophils (%) (Auto) % Lymphocytes (%) (Auto) % Monocytes (%) (Auto) % Eosinophils (%) (Auto) % Basophils (%) (Auto) % Neutrophils # (Auto) TH/MM3 Lymphocytes # (Auto) TH/MM3 Monocytes # (Auto) TH/MM3 Eosinophils # (Auto) TH/MM3 Basophils # (Auto) TH/MM3 CBC Comment AUTO DIFF Differential Total Cells 100 Counted Neutrophils % (Manual) 67 % Band Neutrophils % 17 % Lymphocytes % 8 % Monocytes % 7 % Neutrophils # (Manual) 88.9 TH/MM3 Myelocytes 1 % Differential Comment FINAL DIFF MANUAL Toxic Granulation 1+ Toxic Vacuolation PRESENT Platelet Estimate NORMAL Platelet Morphology Comment NORMAL Sodium Level 144 MEQ/L Potassium Level 3.6 MEQ/L Chloride Level 110 MEQ/L Carbon Dioxide Level 24.4 MEQ/L Anion Gap 10 MEQ/L Blood Urea Nitrogen 55 MG/DL Creatinine 1.72 MG/DL Estimat Glomerular Filtration 39 ML/MIN Rate Random Glucose 136 MG/DL Calcium Level 8.5 MG/DL Urine Color YELLOW Urine Turbidity CLOUDY Urine pH 5.5 Urine Specific [place] 1.021 Urine Protein 30 mg/dL Urine Glucose (UA) NEG mg/dL Urine Ketones NEG mg/dL Urine Occult Blood LARGE Urine Nitrite NEG Urine Bilirubin NEG Urine Urobilinogen LESS THAN 2.0 MG/DL Urine Leukocyte Esterase LARGE Urine RBC /hpf Urine WBC /hpf Urine Uric Acid Crystals MANY /hpf Urine Bacteria FEW /hpf Microscopic Urinalysis Comment CULTURE INDICATED Culture Results Microbiology Date/Time Procedure Status Source Growth 02/15/17 13:46 Cancelled Fluid Pleural Fluid 02/15/17 13:46 Gram Stain - Final Resulted Fluid Pleural Fluid 02/15/17 13:46 Body Fluid Culture - Preliminary Resulted Fluid Pleural Fluid NO GROWTH IN 48 HOURS. 02/15/17 13:46 Acid Fast Stain - Final Resulted Fluid Pleural Fluid NO ACID FAST BACILLI SEEN 02/15/17 13:46 Mycobacterial Culture Resulted Fluid Pleural Fluid Pending 02/16/17 15:45 Gram Stain - Final Resulted Wound Lung 02/16/17 15:45 Wound Culture Resulted Wound Lung Pending 02/16/17 15:45 Acid Fast Stain Received Wound Lung Pending 02/16/17 15:45 Mycobacterial Culture Received Wound Lung Pending 02/16/17 15:45 Fungal Smear - Final Resulted Wound Lung NO FUNGAL ELEMENTS SEEN. 02/16/17 15:45 Fungal Culture Resulted Wound Lung Pending 02/17/17 11:00 Urine Culture Received Urine Random Urine Pending Imaging Studies Last 24 hours Impressions Chest X-Ray 02/17/17 0000 Signed Impressions: Service Date/Time: Friday, February 17, 2017 04:48 - CONCLUSION: 1. Placement of small caliber left chest tube with marked decrease in size of left pleural effusion since February 15. Bilateral lung masses again noted. Christian Dueñas MD Lung Biopsy CT 02/16/17 1326 Signed Impressions: Service Date/Time: Thursday, February 16, 2017 15:26 - CONCLUSION: Uncomplicated CT guided biopsy. Mark Martell MD Administered Medications Medications (Trade) Dose Ordered Sig/Debbie Route PRN Reason Start Time Stop Time Status Last Admin Dose Admin Pantoprazole Sodium (Protonix Inj) 40 mg DAILY IV 02/15/17 11:30 02/17/17 09:25 Chlorhexidine Gluconate (Chlorhexidine 2% Cloth) 3 pack Taper DAILY@04 TOP 02/16/17 04:00 02/12/18 03:59 02/17/17 04:00 Insulin Human Regular 1 1 Q6H SQ 02/15/17 11:30 02/16/17 23:30 Piperacillin Sod/ Tazobactam Sod 50 ml @ 100 mls/hr Q8H IV 02/16/17 13:00 02/17/17 04:59 Sodium Chloride (1/2 NS 1000 ml Inj) 1,000 ml @ 84 mls/hr [id number] IV 02/16/17 12:00 02/16/17 12:17 Objective Remarks GENERAL: Elderly male, lying in bed on 3L NC. SKIN: Warm and dry. HEAD: Normocephalic. EYES: No injection or drainage. NECK: Supple, trachea midline. CARDIOVASCULAR: +S1/S2 RESPIRATORY: Scattered rhonchi anteriorly. Chest tube draining sanguinous fluid. GASTROINTESTINAL: Abdomen soft, non-tender, nondistended. EXTREMITIES: No cyanosis. SCD's to BLE. Left hand s/p amputation NEUROLOGICAL: Somewhat confused. Awake, normal speech. Moving all extremities. 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 Lung biopsy pending. Await results from Dr. Tesfaye from previous sarcoma. Continue supportive care. History November 2015: [facility] to ED [place] [facility] Portillo ordered MRI, showed soft tissue mass, referred to Dr. 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 CT chest showed pulmonary masses and pleural effusion. CT ab/pelvis: no mets (2) Pleural effusion on left Status: Acute Plan: --s/p thoracentesis and chest tube placement. --cytology pending. (3) Leukocytosis Status: Acute Plan: -- Leukocytosis with neutrophilia and bandemia and no peripheral blasts. --most likely reactive process such as leukemoid reaction from lung mets and sepsis or this could be from myeloproliferative disorder. --no peripheral blast. --BCR-ABL by FISH and AARON-2 mutation for evaluation of myeloproliferative disorder pending (4) Hypercalcemia Status: Acute Plan: --IVF -- s/p Aredia x 1 dose. (5) Altered mental status Status: Acute Plan: --?d/t metabolic encephalopathy? Assessment 76y/o male [place] [facility] [place]. Oncology consulted for evaluation of leukocytosis and bilateral pulmonary masses. 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 Sister Ashley is a registered nurse. She lives in [facility]. Her telephone number is [phone]. Attending Statement no new c/o records from [facility] reviewed. 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 Did not see any oncologist. Path is pending. will follow. The exam, history, and the medical decision-making described in the above note were completed with the assistance of the mid-level provider. I reviewed and agree with the findings presented. I attest that I had a [id number] encounter with the patient on the same day, and personally performed and documented my assessment and findings in the medical record. Odalis Brennan Feb 17, 2017 12:42 Deven Schneider MD Feb 17, 2017 18:04
[2017-02-17] MEDS: SODIUM CHLOR 0.45% 1000 ML INJ 1,000 ML IV SCH ×2 (13:34→23:45)
--- NOTE | 2017-02-17 14:32 | PD.CONS ---
Consult Service Palliative Care . Consult Requested By Dr. Manuel . Primary Care Physician Non-Staff . Reason for Consultation a. To assist with evaluation and management of symptoms including: dyspnea, anxiety b. To assist medical decision maker(s) with: better understanding of current medical conditions; weighing benefits/burdens of medical treatment options; making medical treatment decisions. . HPI History of Present Illness Mr. Fermin is a 76 year old male who presented to [facility] on 02/15/17 for evaluation of respiratory distress. Upon arrival to the ED, the patient was tachycardic and tachypneic with oxygen saturation of 84% on RA. The patient reported he had been short of breath for 2 weeks which progressively worsened. He also reported a productive cough with brownish colored sputum. The patient has not seen a physician for many years and does not medications at home. Additional diagnostic findings in the ED: * Vital signs: Pulse 129, respirations 27, BP 143/88, oxygen saturation 84% on 4L oxygen via nasal cannula, oral temperature 97.9 * WBC: 110.2, hemoglobin 13.0, hematocrit 41.0, platelets 574, neutrophils 94.9% * Sodium: 143, potassium 4.7, chloride 105, carbon dioxide 22.9, glucose 223, calcium 10.5 * BUN: 43, creatinine 1.70, GFR 40 * PT: 10.4, INR 0.9, APTT 23.6 * Chest x-ray: Multiple pulmonary masses worrisome for metastatic disease, large left and tiny right pleural effusion. * CT abdomen/pelvis: Large pleural effusion on the left with pleural thickening and parenchymal mass on the right. Lung cancer suspected. No obvious metastatic disease in the abdomen. * CT thorax/chest: Markedly abnormal CT scan of the chest with complete opacification of the left hemithorax with consolidative changes about the left lung. Multiple soft tissue masses are seen on the right. * CT brain: showed no evidence for mass. * EKG: Sinus tachycardia with short MI intervals Patient presented to the ED in severe respiration distress with an oxygen saturation of 84% on RA, increasingly to 92% on 4L oxygen via nasal cannula. He was subsequently placed on 15 L oxygen via nonrebreather, dyspnea decreased and oxygen saturations were in the mid to high 90s. CBC showing extreme leukocytosis , WBC of 110,000. Imaging shows metastatic disease to the lungs with a large pleural effusion that occupies the majority of the left hemothorax. A left chest tube was placed and 3 L of bloody fluid was removed, cytology pending. Follow-up chest x -ray showing a 1.3 cm pneumothorax despite chest tube. Patient was admitted to critical care with acute toxic respiratory failure, left pleural effusion and lung mass. Pulmonology, hematology/oncology and nephrology were consulted. Apparently the patient was seen at [place] ED in November, for evaluation of swelling of the first wet of the left hand. He was referred to Dr. Portillo, hand surgeon, who ordered an MRI of the left hand. The MRI showed a soft tissue mass consistent with a malignancy such as a sarcoma. The patient was then referred to Dr. Tesfaye, orthopedic oncologist, at [facility] in [place]. 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 At this time further documentation is not available, it is unclear if he was referred to an oncologist for evaluation/treatment of his metastatic disease. Dr. Schneider, hematology/oncology, was consulted for evaluation of leukocytosis and bilateral pulmonary masses. Per Dr. 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 The patient is being treated with antibiotics. Plan further workup or evaluation of myeloproliferative order and leukemia. Nephrology was consulted or evaluation of ISSAC. Patient's creatinine was 1.70 on admission, now increased to 2.10 (possibly related to IV contrast). Baseline renal functioning is unknown as there are no other admissions or labs available to review. An ultrasound of the kidney/renal/bladder showed multiple bilateral renal cysts, renal cortical thinning, and a small left pleural effusion. CT-guided core needle biopsy of right lung mass on 02/16/17, results pending. Palliative Care was consulted to assist with symptom management and to discuss with the patient and his family the benefits and burdens of his current illnesses and the options regarding future care. . 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 At that time a CT of the chest showed multiple bilateral pulmonary nodules consistent with metastatic disease. Patient is a poor historian experiencing severe dyspnea with conversation, unable to provide detailed medical history. He states he lives alone. Reports weight loss (unknown amount) and increased weakness over the past 12 months. . Review of Systems ROS Limitations: Clinical Condition (ROS limited secondary to dyspnea exacerbated with conversation.), Poor Historian Constitutional: COMPLAINS OF: Weight loss (Unknown amount), Change in appetite , Generalized weakness, DENIES: Pain Ears, nose, mouth, throat: DENIES: Epistaxis Respiratory: COMPLAINS OF: Cough, Hemoptysis, Sputum production, Shortness of breath Cardiovascular: COMPLAINS OF: Dyspnea on Exertion, DENIES: Chest pain, Palpitations Gastrointestinal: COMPLAINS OF: Black stools, DENIES: Abdominal pain Neurologic: COMPLAINS OF: Poor Balance Psychiatric: COMPLAINS OF: Confusion (intermittent) Past Family Social History Coded Allergies: Aspirin (Verified Allergy, Severe, Rash, 02/15/17) Past Medical History Malignancy - partial amputation left arm 2016 . Past Surgical History Tonsillectomy Partial amputation of left arm secondary to a tumor, per patient. . Reported Medications No active prescriptions or reported medications. . Current Medications Medications (Trade) Dose Ordered Sig/Debbie Route Start Time Stop Time Status Last Admin (NS Flush) 2 ml UNSCH PRN IVF 02/15/17 08:15 (Protonix Inj) 40 mg DAILY IV 02/15/17 11:30 02/17/17 09:25 Miscellaneous Information 1 [id number] XX 02/15/17 11:30 (Chlorhexidine 2% Cloth) 3 pack Taper DAILY@04 TOP 02/16/17 04:00 02/12/18 03:59 02/17/17 04:00 (Chlorhexidine 2% Cloth) 3 pack UNSCH PRN TOP 02/15/17 11:30 (D50w (Vial) Inj) 25 ml UNSCH PRN IV PUSH 02/15/17 11:30 (Glucagon Inj) 1 mg UNSCH PRN OTHER 02/15/17 11:30 Insulin Human Regular 1 1 Q6H SQ 02/15/17 11:30 02/16/17 23:30 Piperacillin Sod/ Tazobactam Sod 50 ml @ 100 mls/hr Q8H IV 02/16/17 13:00 02/17/17 04:59 (1/2 NS 1000 ml Inj) 1,000 ml @ 84 mls/hr [id number] IV 02/16/17 12:00 02/16/17 12:17 (Ginna-Colace) 1 tab BID PO 02/17/17 21:00 . Family History Patient's from natural causes in their 90s. One brother who from an [place] and a brother with colon cancer. One sister with breast cancer. Substance Use Tobacco: History of tobacco use, previously smoked 1 PPD for several years. Alcohol: Occasional EtOH consumption Prescription med abuse: None known Illicits: None known . Psychosocial History Mr. Fermin has 3 sisters (2 of the sisters were half-sisters) and 2 brothers ( 1 brother was a half-brother). One sister and one brother are , along with the patient's mother and father who from natural causes in their 90s. The patient is , living independently by himself. 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 He has 3 adult children, all are alive and well. . Spiritual/Cultural Factors Episcopal errol . Living Will: Never completed Health Care Surrogate: Copy in medical record Durable Power of Petroleum Inspector: Never completed Date completed: 02/17/17 . Health Care Surrogate(s): Patient has designated his sister, Ashley Bustos, as his health care surrogate. . Documented care wishes: No documented care wishes have been completed at this time. . Today's verbally stated goals: Goals pending test results. Patient is hoping to move to [facility] where his sister lives and can assist with his medical needs. . Ethical and Legal Issues No known ethical or legal issues at this time. . Physical Exam Vital Signs Date Time Temp Pulse Resp B/P Pulse Ox O2 Delivery O2 Flow Rate FiO2 02/17/17 07:39 93 Nasal Cannula 3.00 02/17/17 06:00 69 02/17/17 05:00 98.0 103 22 104/58 92 02/17/17 04:00 103 02/17/17 02:50 94 Nasal Cannula 3.00 02/17/17 02:00 97 02/17/17 00:00 98.2 103 17 99/58 93 02/17/17 00:00 103 02/16/17 22:00 100 02/16/17 20:00 98.4 111 24 103/58 93 02/16/17 20:00 111 02/16/17 20:00 98.4 111 24 103/58 93 02/16/17 19:26 93 Nasal Cannula 4.00 02/16/17 16:45 96.4 116 25 102/59 93 . 02/16/17 02/17/17 19:00 07:00 Intake Total 856 ml 2189 ml Output Total 1200 ml 1630 ml Balance -344 ml 559 ml Intake Oral 420 ml IV Total 856 ml 1769 ml Output Urine Total 400 ml 800 ml Chest Tube Drainage Total 800 ml 830 ml # Bowel Movements 0 . Exam CONSTITUTIONAL/GENERAL: This is a frail, elderly male patient in moderate respiratory distress. TUBES/LINES/DRAINS: PIV x 2, Chest tube, Chan SKIN: No jaundice, rashes, or lesions. Ecchymoses on upper extremities. No wounds seen anteriorly. Skin temperature appropriate. Not diaphoretic. HEAD: Atraumatic. Normocephalic. EYES: Pupils 2mm,round and reactive. Extraocular motions intact. No scleral icterus. No injection or drainage. Fundi not examined. ENT: Hearing grossly normal. Nose without bleeding or purulent drainage. Poor dentation. NECK: Trachea midline. Supple, nontender. No palpable thyroid enlargement or nodularity. CARDIOVASCULAR: Tachycardic. No murmurs, gallops, or rubs. No JVD. Peripheral pulses symmetric. Chest tube draining with sanguinous fluid. RESPIRATORY/CHEST: Intermittent tachypnea, worsening with conversation on 4L via nc. Breath sounds diminished with scattered rhonchi. Weak cough. GASTROINTESTINAL: Abdomen soft, non-tender, nondistended. No hepato-splenomegaly , or palpable masses. No guarding. Bowel sounds present. GENITOURINARY: Without palpable bladder distension. Chan catheter in place. MUSCULOSKELETAL: Extremities without clubbing, cyanosis, or edema. No joint tenderness or effusion noted. No calf tenderness. No mottling or clubbing. LYMPHATICS: No palpable cervical or supraclavicular adenopathy. NEUROLOGICAL: Awake and alert, difficult to understand at time. Answers questions, follow commands. PSYCHIATRIC: No obvious anxiety/depression. no apparent hallucinations or other psychotic thought process. . Diagnostic Tests Laboratory Laboratory Tests Test 02/15/17 02/15/17 02/15/17 02/15/17 08:00 12:43 13:46 15:10 White Blood Count 110.2 TH/MM3 (4.0-11.0) Red Blood Count 4.60 MIL/MM3 (4.50-5.90) Hemoglobin 13.0 GM/DL (13.0-17.0) Hematocrit 41.0 % (39.0-51.0) Mean Corpuscular Volume 89.2 FL (80.0-100.0) Mean Corpuscular Hemoglobin 28.3 PG (27.0-34.0) Mean Corpuscular Hemoglobin 31.7 % Concent (32.0-36.0) Red Cell Distribution Width 13.3 % (11.6-17.2) Platelet Count 574 TH/MM3 (150-450) Mean Platelet Volume 8.5 FL (7.0-11.0) Neutrophils (%) (Auto) 94.9 % (16.0-70.0) Lymphocytes (%) (Auto) 2.4 % (9.0-44.0) Monocytes (%) (Auto) 2.6 % (0.0-8.0) Eosinophils (%) (Auto) 0.0 % (0.0-4.0) Basophils (%) (Auto) 0.1 % (0.0-2.0) Neutrophils # (Auto) 104.7 TH/MM3 (1.8-7.7) Lymphocytes # (Auto) 2.6 TH/MM3 (1.0-4.8) Monocytes # (Auto) 2.9 TH/MM3 (0-0.9) Eosinophils # (Auto) 0.0 TH/MM3 (0-0.4) Basophils # (Auto) 0.1 TH/MM3 (0-0.2) CBC Comment AUTO DIFF Differential Total Cells 200 Counted Neutrophils % (Manual) 72 % (16-70) Band Neutrophils % 22 % (0-6) Lymphocytes % 5 % (9-44) Monocytes % 2 % (0-8) Neutrophils # (Manual) 103.6 TH/MM3 (1.8-7.7) Differential Comment FINAL DIFF MANUAL Platelet Estimate HIGH (NORMAL) Platelet Morphology Comment NORMAL (NORMAL) Keratocytes OCC (NORMAL) Prothrombin Time 10.4 SEC (9.8-11.6) Prothromb Time International 0.9 RATIO Ratio Activated Partial 23.6 SEC Thromboplast Time (24.3-30.1) Sodium Level 143 MEQ/L (136-145) Potassium Level 4.7 MEQ/L (3.5-5.1) Chloride Level 105 MEQ/L (98-107) Carbon Dioxide Level 22.9 MEQ/L (21.0-32.0) Anion Gap 15 MEQ/L (5-15) Blood Urea Nitrogen 43 MG/DL (7-18) Creatinine 1.70 MG/DL (0.60-1.30) Estimat Glomerular Filtration 40 ML/MIN (>89) Rate Random Glucose 223 MG/DL (74-106) Calcium Level 10.5 MG/DL (8.5-10.1) Blood Gas Puncture Site RT RADIAL Blood Gas Patient Temperature 98.6 Blood Gas HCO3 23 mmol/L (22-26) Blood Gas Base Excess -2.0 mmol/L (-2-2) Blood Gas Oxygen Saturation 94 % (90-100) Arterial Blood pH 7.34 (7.380-7.420) Arterial Blood Partial 43 mmHg (38-42) Pressure CO2 Arterial Blood Partial 85 mmHG Pressure O2 (61-120) Arterial Blood Oxygen Content 16.4 Vol % (12.0-20.0) Arterial Blood 0.6 % (0-4) Carboxyhemoglobin Arterial Blood Methemoglobin 0.8 % (0-2) Blood Gas Hemoglobin 12.3 G/DL (12.0-16.0) Oxygen Delivery Device Non-Rebreathing Mask Blood Gas Liter Flow 15 L/M Pleural Fluid pH 7.5 Pleural Fluid WBC 5380 /MM3 (0-10) Pleural Fluid RBC 338239 /MM3 (0-0) Pleural Fluid Neutrophils 82 % Pleural Fluid Lymphocytes 9 % Pleural Fluid Monocytes 7 % Pleural Fluid Eosinophils 1 % Pleural Fluid Mesothelial 1 % Cells Pleural Fluid Total Protein 4.3 GM/DL Pleural Fluid LDH 1499 U/L Pleural Fluid Glucose 182 MG/DL Nasal Screen MRSA (PCR) NEGATIVE (NEGATIVE) Test 02/15/17 02/15/17 02/16/17 02/16/17 16:54 20:37 03:09 16:30 White Blood Count 114.2 TH/MM3 109.7 TH/MM3 (4.0-11.0) (4.0-11.0) Red Blood Count 4.20 MIL/MM3 3.99 MIL/MM3 (4.50-5.90) (4.50-5.90) Hemoglobin 11.7 GM/DL 11.3 GM/DL (13.0-17.0) (13.0-17.0) Hematocrit 37.5 % 35.1 % (39.0-51.0) (39.0-51.0) Mean Corpuscular Volume 89.2 FL 88.0 FL (80.0-100.0) (80.0-100.0) Mean Corpuscular Hemoglobin 27.9 PG 28.3 PG (27.0-34.0) (27.0-34.0) Mean Corpuscular Hemoglobin 31.3 % 32.1 % Concent (32.0-36.0) (32.0-36.0) Red Cell Distribution Width 13.3 % 13.4 % (11.6-17.2) (11.6-17.2) Platelet Count 478 TH/MM3 522 TH/MM3 (150-450) (150-450) Mean Platelet Volume 8.6 FL 8.5 FL (7.0-11.0) (7.0-11.0) Neutrophils (%) (Auto) 97.6 % % (16.0-70.0) (16.0-70.0) Lymphocytes (%) (Auto) 1.3 % % (9.0-44.0) (9.0-44.0) Monocytes (%) (Auto) 0.9 % (0.0-8.0) % (0.0-8.0) Eosinophils (%) (Auto) 0.0 % (0.0-4.0) % (0.0-4.0) Basophils (%) (Auto) 0.2 % (0.0-2.0) % (0.0-2.0) Neutrophils # (Auto) 111.6 TH/MM3 TH/MM3 (1.8-7.7) (1.8-7.7) Lymphocytes # (Auto) 1.4 TH/MM3 TH/MM3 (1.0-4.8) (1.0-4.8) Monocytes # (Auto) 1.0 TH/MM3 TH/MM3 (0-0.9) (0-0.9) Eosinophils # (Auto) 0.0 TH/MM3 TH/MM3 (0-0.4) (0-0.4) Basophils # (Auto) 0.2 TH/MM3 TH/MM3 (0-0.2) (0-0.2) CBC Comment AUTO DIFF AUTO DIFF Differential Total Cells 100 200 Counted Neutrophils % (Manual) 69 % (16-70) 85 % (16-70) Band Neutrophils % 27 % (0-6) 11 % (0-6) Lymphocytes % 2 % (9-44) 2 % (9-44) Monocytes % 2 % (0-8) 3 % (0-8) Neutrophils # (Manual) 109.6 TH/MM3 106.4 TH/MM3 (1.8-7.7) (1.8-7.7) Differential Comment FINAL DIFF FINAL DIFF MANUAL MANUAL Toxic Granulation 1+ (NORMAL) Toxic Vacuolation PRESENT (NONE SEEN) Platelet Estimate HIGH (NORMAL) HIGH (NORMAL) Platelet Morphology Comment NORMAL NORMAL (NORMAL) (NORMAL) Red Cell Morphology Comment NORMAL (NORMAL) Sodium Level 146 MEQ/L 148 MEQ/L (136-145) (136-145) Potassium Level 4.4 MEQ/L 4.2 MEQ/L (3.5-5.1) (3.5-5.1) Chloride Level 109 MEQ/L 112 MEQ/L (98-107) (98-107) Carbon Dioxide Level 25.4 MEQ/L 24.4 MEQ/L (21.0-32.0) (21.0-32.0) Anion Gap 12 MEQ/L (5-15) 12 MEQ/L (5-15) Blood Urea Nitrogen 57 MG/DL (7-18) 58 MG/DL (7-18) Creatinine 2.13 MG/DL 2.10 MG/DL (0.60-1.30) (0.60-1.30) Estimat Glomerular Filtration 31 ML/MIN (>89) 31 ML/MIN (>89) Rate Random Glucose 195 MG/DL 155 MG/DL (74-106) (74-106) Calcium Level 9.7 MG/DL 9.7 MG/DL (8.5-10.1) (8.5-10.1) Total Bilirubin 0.4 MG/DL 0.5 MG/DL (0.2-1.0) (0.2-1.0) Aspartate Amino Transf 14 U/L (15-37) 14 U/L (15-37) (AST/SGOT) Alanine Aminotransferase 13 U/L (12-78) 14 U/L (12-78) (ALT/SGPT) Alkaline Phosphatase 138 U/L 150 U/L (45-117) (45-117) Total Protein 6.2 GM/DL 6.2 GM/DL 5.9 GM/DL (6.4-8.2) (6.4-8.2) (6.0-7.6) Albumin 2.6 GM/DL 2.5 GM/DL (3.4-5.0) (3.4-5.0) Metamyelocytes 1 % (0-1) Parathyroid Hormone (Intact) 36.3 PG/ML (12.4-76.8) Complement C3 145 MG/DL (90-180) Complement C4 30 MG/DL (10-40) 25-Hydroxy Vitamin D Total 10.0 ng/ML (30-100) Immunoglobulin G Total 497 MG/DL (680-1670) Immunoglobulin A 167 MG/DL (103-568) Immunoglobulin M 41 MG/DL (38-231) Immunoglobulin [place]/Lambda 1.57 Ratio (1.57-3.93) [place] Light Chain Analysis 137 MG/DL (170-370) Lambda Light Chain Analysis 87 MG/DL (90-210) Test 02/17/17 02/17/17 04:20 11:00 White Blood Count 104.6 TH/MM3 (4.0-11.0) Red Blood Count 3.67 MIL/MM3 (4.50-5.90) Hemoglobin 10.3 GM/DL (13.0-17.0) Hematocrit 32.7 % (39.0-51.0) Mean Corpuscular Volume 89.2 FL (80.0-100.0) Mean Corpuscular Hemoglobin 28.0 PG (27.0-34.0) Mean Corpuscular Hemoglobin 31.4 % Concent (32.0-36.0) Red Cell Distribution Width 13.5 % (11.6-17.2) Platelet Count 430 TH/MM3 (150-450) Mean Platelet Volume 8.5 FL (7.0-11.0) Neutrophils (%) (Auto) % (16.0-70.0) Lymphocytes (%) (Auto) % (9.0-44.0) Monocytes (%) (Auto) % (0.0-8.0) Eosinophils (%) (Auto) % (0.0-4.0) Basophils (%) (Auto) % (0.0-2.0) Neutrophils # (Auto) TH/MM3 (1.8-7.7) Lymphocytes # (Auto) TH/MM3 (1.0-4.8) Monocytes # (Auto) TH/MM3 (0-0.9) Eosinophils # (Auto) TH/MM3 (0-0.4) Basophils # (Auto) TH/MM3 (0-0.2) CBC Comment AUTO DIFF Differential Total Cells 100 Counted Neutrophils % (Manual) 67 % (16-70) Band Neutrophils % 17 % (0-6) Lymphocytes % 8 % (9-44) Monocytes % 7 % (0-8) Neutrophils # (Manual) 88.9 TH/MM3 (1.8-7.7) Myelocytes 1 % (0-0) Differential Comment FINAL DIFF MANUAL Toxic Granulation 1+ (NORMAL) Toxic Vacuolation PRESENT (NONE SEEN) Platelet Estimate NORMAL (NORMAL) Platelet Morphology Comment NORMAL (NORMAL) Sodium Level 144 MEQ/L (136-145) Potassium Level 3.6 MEQ/L (3.5-5.1) Chloride Level 110 MEQ/L (98-107) Carbon Dioxide Level 24.4 MEQ/L (21.0-32.0) Anion Gap 10 MEQ/L (5-15) Blood Urea Nitrogen 55 MG/DL (7-18) Creatinine 1.72 MG/DL (0.60-1.30) Estimat Glomerular Filtration 39 ML/MIN (>89) Rate Random Glucose 136 MG/DL (74-106) Calcium Level 8.5 MG/DL (8.5-10.1) Urine Color YELLOW (YELLW/STRAW) Urine Turbidity CLOUDY (CLEAR) Urine pH 5.5 (5.0-8.5) Urine Specific [place] 1.021 (1.002-1.035) Urine Protein 30 mg/dL (NEG-TRACE) Urine Glucose (UA) NEG mg/dL (NEG) Urine Ketones NEG mg/dL (NEG) Urine Occult Blood LARGE (NEG) Urine Nitrite NEG (NEG) Urine Bilirubin NEG (NEG) Urine Urobilinogen LESS THAN 2.0 MG/DL (LESS THAN 2.0) Urine Leukocyte Esterase LARGE (NEG) Urine RBC /hpf (0-3) Urine WBC /hpf (0-5) Urine Uric Acid Crystals MANY /hpf (NONE) Urine Bacteria FEW /hpf (NONE) Microscopic Urinalysis Comment CULTURE INDICATED Urine Eosinophils NONE SEEN /HPF (NONE SEEN) . Result Diagram: 02/17/17 04202/17/17 042 Microbiology Microbiology Date/Time Procedure Status Source Growth 02/15/17 13:46 Cancelled Fluid Pleural Fluid 02/15/17 13:46 Gram Stain - Final Resulted Fluid Pleural Fluid 02/15/17 13:46 Body Fluid Culture - Preliminary Resulted Fluid Pleural Fluid NO GROWTH IN 48 HOURS. 02/15/17 13:46 Acid Fast Stain - Final Resulted Fluid Pleural Fluid NO ACID FAST BACILLI SEEN 02/15/17 13:46 Mycobacterial Culture Resulted Fluid Pleural Fluid Pending 02/16/17 15:45 Gram Stain - Final Resulted Wound Lung 02/16/17 15:45 Wound Culture Resulted Wound Lung Pending 02/16/17 15:45 Acid Fast Stain Received Wound Lung Pending 02/16/17 15:45 Mycobacterial Culture Received Wound Lung Pending 02/16/17 15:45 Fungal Smear - Final Resulted Wound Lung NO FUNGAL ELEMENTS SEEN. 02/16/17 15:45 Fungal Culture Resulted Wound Lung Pending 02/17/17 11:00 Urine Culture Received Urine Random Urine Pending . Imaging Last 72 hours Impressions Chest X-Ray 02/17/17 0000 Signed Impressions: Service Date/Time: Friday, February 17, 2017 04:48 - CONCLUSION: 1. Placement of small caliber left chest tube with marked decrease in size of left pleural effusion since February 15. Bilateral lung masses again noted. Christian Dueñas MD Lung Biopsy CT 02/16/17 1326 Signed Impressions: Service Date/Time: Thursday, February 16, 2017 15:26 - CONCLUSION: Uncomplicated CT guided biopsy. Mark Martell MD Renal Ultrasound 02/16/17 0000 Signed Impressions: Service Date/Time: Thursday, February 16, 2017 17:36 - CONCLUSION: Multiple bilateral renal cysts. Renal cortical thinning. Cholelithiasis. Small left pleural effusion. Pola Cortes MD Chest X-Ray 02/16/17 0000 Signed Impressions: Service Date/Time: Thursday, February 16, 2017 16:31 - CONCLUSION: 1. Bilateral bulky pulmonary nodules. 2. Left-sided pleural effusion. There is a [place] loop catheter seen just cephalad to the effusion. 3. No pneumothorax post biopsy. Dago Hines MD Chest X-Ray 02/16/17 0000 Signed Impressions: Service Date/Time: Thursday, February 16, 2017 02:56 - CONCLUSION: 1. Small caliber left chest tube with tiny left apical pneumothorax, decreased from February 15. Christian Dueñas MD Chest X-Ray 02/15/17 0808 Signed Impressions: Service Date/Time: Wednesday, February 15, 2017 08:12 - CONCLUSION: 1. Multiple pulmonary masses worrisome for metastatic disease. Consider CT of the chest to further evaluate. 2. Large left and tiny right pleural effusion. Jermaine Chisholm Jr., MD Head CT 02/15/17 0000 Signed Impressions: Service Date/Time: Wednesday, February 15, 2017 11:53 - CONCLUSION: Marked motion artifact. I do not see evidence for a mass. Nick Murphy MD FACR Chest X-Ray 02/15/17 0000 Signed Impressions: Service Date/Time: Wednesday, February 15, 2017 14:29 - CONCLUSION: Chest tube is in place on the left. There is a 1.3 cm pneumothorax present in spite of chest tube. Multiple to 3 cm masses are seen throughout both lungs most suspicious for renal cell carcinoma or seminoma in spite of the negative CT scan. CONCLUSION: Chest tube is in place on the left. There is a 1.3 cm pneumothorax present in spite of chest tube. Nick Murphy MD FACR Chest Tube Insertion 02/15/17 0000 Signed Impressions: Service Date/Time: Wednesday, February 15, 2017 13:23 - CONCLUSION: Uncomplicated left chest tube placement as above. 3 L of bloody fluid was removed. Samples to the lab as requested. Metastatic lesions seen throughout the lungs bilaterally. Jermaine Chisholm Jr., MD Chest CT 02/15/17 0000 Signed Impressions: Service Date/Time: Wednesday, February 15, 2017 12:04 - CONCLUSION: Markedly abnormal CT scan of the chest with complete opacification of left hemithorax with consolidative changes about the left lung. Multiple soft tissue masses are seen on the right. Easiest way to obtain diagnosis is biopsy of the large mass anteriorly on the right. This could be biopsies percutaneously. Thoracentesis would be of benefit with tube placement on the left. Nick Murphy MD FACR Abdomen/Pelvis CT 02/15/17 0000 Signed Impressions: Service Date/Time: Wednesday, February 15, 2017 12:04 - CONCLUSION: 1. Large pleural effusion on the left with pleural thickening and parenchymal mass on the right. Lung cancer is suspected. I do not see obvious metastatic disease in the abdomen. 2. Gallstones. Nick Murphy MD FACR . Procedures 02/15/17: Chest tube placement 02/15/17: Thoracentesis . Patient/Family Conference Present at Family Conference: Spoke with patient at bedside, and later the patient's sister via telephone. . Family Conference Location: Bedside, Telephone Issues Discussed: * Palliative care role, purpose, approach * Additional medical, psychosocial, and spiritual history * Patients general health, functional status, and cognitive changes in the months leading up to the current hospitalization * Patient/family understanding of the current medical problems * Patient/family understanding of prognosis * Patients goals of care as best understood from advance directives and/or conversations and/or values * Current medical treatment options and benefits/burdens of those options * Likely scenarios comparing ongoing aggressive care with a transition to comfort measures only * Questions answered to the best of my ability * Palliative care contact information provided . 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 Fermin has 3 sisters (2 of the sisters were half-sisters) and 2 brothers (1 brother was a half-brother). One sister and one brother are , along with the patient's mother and father who from natural causes in their 90s. The patient is , living independently by himself. 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 He has 3 adult children, all are alive and well. Spiritual: Episcopal errol Legal: Patient's sister, Ashley Bustos, is the designated HCS. Ethical issues impacting care: No known ethical issues impacting care. . Important Contacts Ashley Bustos, sister: [phone] . Code Status: Full Code Plan * FULL CODE * Decision making: Patient designated his sister, Ashley Bustos, as the health care surrogate. * Goals: Goals are aggressive pending biopsy results. * Discussed, at length, the process of cardiopulmonary resuscitation including compressions, medications, cardioversion and intubation/mechanical ventilation. Patient states he has to get to [place] to his sister's home and that he wants everything done during this hospitalization to help him get there. CODE STATUS remains FULL CODE * Pleural fluid cytology pending * Lung biopsy pending * BCR-ABL by FISH and AARON-2 mutation for evaluation of a myeloproliferative disorder - results pending. * Symptom management- dyspnea: Patient presented to [place] ED for evaluation of severe dyspnea. Found to have a large left-sided pleural effusion with numerous chest masses on x-ray. S/p left chest tube placement on 02/15/17, draining sanguinous fluid. Patient currently tolerating 4L oxygen via nasal cannula with saturations in the low 90s. Patient becomes significantly more dyspneic with conversation, resulting in tachypnea (rate in the 40s) and desaturations into the low to mid 80s. Cytology and biopsies pending. * Symptom managementanxiety: Anxiety is likely secondary to respiratory distress. May consider low dose lorazepam 0.5mg PO as needed for symptom management. * Spoke to patient's sister/HCS, Ashley Bustos, via telephone to introduce Palliative care contact and provide contact information. Discussed patient's hospital course thus far and diagnostic results pending.Questions answered to the best of my ability. * Palliative care will continue to follow throughout his hospitalization to establish trust, sips with symptom management and clarification of medical treatment goals. . Thank you for the opportunity to participate in the care of Mr. Fermin. . Attestation To help prompt me to consider important information that might be impacting today's encounter and assessment, information from prior notes written by myself or my colleagues may have been "brought forward" into today's note. My signature on this note, however, is an attestation that I personally performed the exam, history, and/or decision-making noted today, and, unless otherwise indicated, the interactions with patient, family, and staff as well as the review of records all occurred today. I also attest that the listed assessment and stated plan reflect my best clinical judgment today based on the combination of historical information, prior notes, and today's exam/ interactions. When time spent is documented, it refers only to time spent today by the signer, or if indicated, combined time spent today by collaborating physician/nurse practitioner. . Charmaine Nam Feb 17, 2017 14:32
--- NOTE | 2017-02-17 17:30 | HHI.PR ---
Subjective Remarks Chest tube in place needle lung biopsy done no distress on O2 Objective Vital Signs Date Time Temp Pulse Resp B/P Pulse Ox O2 Delivery O2 Flow Rate FiO2 02/17/17 07:39 93 Nasal Cannula 3.00 02/17/17 06:00 69 02/17/17 05:00 98.0 103 22 104/58 92 02/17/17 04:00 103 02/17/17 02:50 94 Nasal Cannula 3.00 02/17/17 02:00 97 02/17/17 00:00 98.2 103 17 99/58 93 02/17/17 00:00 103 02/16/17 22:00 100 02/16/17 20:00 98.4 111 24 103/58 93 02/16/17 20:00 111 02/16/17 20:00 98.4 111 24 103/58 93 02/16/17 19:26 93 Nasal Cannula 4.00 I/O 02/16/17 02/16/17 02/16/17 02/17/17 02/17/17 02/17/17 07:00 15:00 23:00 07:00 15:00 23:00 Intake Total 622 ml 856 ml 1554 ml 635 ml Output Total 600 ml 1200 ml 930 ml 700 ml Balance 22 ml -344 ml 624 ml -65 ml Intake Oral 360 ml 60 ml IV Total 622 ml 856 ml 1194 ml 575 ml Output Urine Total 500 ml 400 ml 500 ml 300 ml Chest Tube Drainage Total 100 ml 800 ml 430 ml 400 ml # Bowel Movements 0 Result Diagram: 02/17/1741902/17/17419 Objective Remarks GENERAL: SKIN: Warm and dry. HEAD: Atraumatic. Normocephalic. EYES: Pupils equal and round. No scleral icterus. No injection or drainage. ENT: No nasal bleeding or discharge. Mucous membranes pink and moist. NECK: Trachea midline. No JVD. CARDIOVASCULAR: Regular rate and rhythm. RESPIRATORY: No accessory muscle use. Clear to auscultation. Breath sounds equal bilaterally. GASTROINTESTINAL: Abdomen soft, non-tender, nondistended. Hepatic and splenic margins not palpable. MUSCULOSKELETAL: Extremities without clubbing, cyanosis, or edema. No obvious deformities. NEUROLOGICAL: Awake and alert. No obvious cranial nerve deficits. Motor grossly within normal limits. Five out of 5 muscle strength in the arms and legs. Normal speech. PSYCHIATRIC: Appropriate mood and affect; insight and judgment normal. Assessment and Plan Assessment and Plan RESPIRATORY FAILURE LUNG MASSES ? METS PLEURAL EFFUSION , MOST LIKELY MALIGNANT PLAN CHECK CYTOLOGY , PLEURAL FLUID CHECK BIOPSY RESULTS O2 NEEDED ANTIBIOTICS FOLLOW WBC COUNT Jerson Arthur MD Feb 17, 2017 17:30
--- NOTE | 2017-02-17 18:05 | HHI.NPPN ---
Subjective History of Present Illness The patient is a 76 yo [place] male who presented to the ED on 02/15 with complaints of progressively worsening SOB x2 weeks. He is a very poor historian, so much of information is obtained through previous medical records. 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 This was all performed at [facility] in [place] , so further information is not available at the present. Uncertain if he had to have chemo or radiation, nor if he has been following locally with any physicians. On admission, it was noted that he had a severe L pleural effusion and subsequently had to have L chest tube placed. Imaging suspicious for metastatic disease. Initial drainage from CT was 3L. He has had aboout 500mL overnight. We were consulted for ISSAC. There are no other admission or labs to review to see where the patient's baseline renal functions actually are. Uncertain what medication if any are taken at home His admitting SCr was 1.70 that worsened to 2.10 at consult Ca was elevated at 10.5 and was given Aredia by oncology Interval History Pt resting in bed. s/p lung nodule bx. Mets w/u underway with heme/onco Objective Data Data 02/16/17 02/17/17 19:00 07:00 Intake Total 856 ml 2189 ml Output Total 1200 ml 1630 ml Balance -344 ml 559 ml Intake Oral 420 ml IV Total 856 ml 1769 ml Output Urine Total 400 ml 800 ml Chest Tube Drainage Total 800 ml 830 ml # Bowel Movements 0 Vital Signs Date Time Temp Pulse Resp B/P Pulse Ox O2 Delivery O2 Flow Rate FiO2 02/17/17 07:39 93 Nasal Cannula 3.00 02/17/17 06:00 69 02/17/17 05:00 98.0 103 22 104/58 92 02/17/17 04:00 103 02/17/17 02:50 94 Nasal Cannula 3.00 02/17/17 02:00 97 02/17/17 00:00 98.2 103 17 99/58 93 02/17/17 00:00 103 02/16/17 22:00 100 02/16/17 20:00 98.4 111 24 103/58 93 02/16/17 20:00 111 02/16/17 20:00 98.4 111 24 103/58 93 02/16/17 19:26 93 Nasal Cannula 4.00 -: 02/17/17 0420 02/17/17 0420 Microbiology 02/17/17 Urine Culture, Received Pending Imaging Last Impressions Chest X-Ray 02/17/17 0000 Signed Impressions: Service Date/Time: Friday, February 17, 2017 04:48 - CONCLUSION: 1. Placement of small caliber left chest tube with marked decrease in size of left pleural effusion since February 15. Bilateral lung masses again noted. Christian Dueñas MD Lung Biopsy CT 02/16/17 1326 Signed Impressions: Service Date/Time: Thursday, February 16, 2017 15:26 - CONCLUSION: Uncomplicated CT guided biopsy. Mark Martell MD Renal Ultrasound 02/16/17 0000 Signed Impressions: Service Date/Time: Thursday, February 16, 2017 17:36 - CONCLUSION: Multiple bilateral renal cysts. Renal cortical thinning. Cholelithiasis. Small left pleural effusion. Pola Cortes MD Head CT 02/15/17 0000 Signed Impressions: Service Date/Time: Wednesday, February 15, 2017 11:53 - CONCLUSION: Marked motion artifact. I do not see evidence for a mass. Nick Murphy MD FACR Chest Tube Insertion 02/15/17 0000 Signed Impressions: Service Date/Time: Wednesday, February 15, 2017 13:23 - CONCLUSION: Uncomplicated left chest tube placement as above. 3 L of bloody fluid was removed. Samples to the lab as requested. Metastatic lesions seen throughout the lungs bilaterally. Jermaine Chisholm Jr., MD Chest CT 02/15/17 0000 Signed Impressions: Service Date/Time: Wednesday, February 15, 2017 12:04 - CONCLUSION: Markedly abnormal CT scan of the chest with complete opacification of left hemithorax with consolidative changes about the left lung. Multiple soft tissue masses are seen on the right. Easiest way to obtain diagnosis is biopsy of the large mass anteriorly on the right. This could be biopsies percutaneously. Thoracentesis would be of benefit with tube placement on the left. Nick Murphy MD FACR Abdomen/Pelvis CT 02/15/17 0000 Signed Impressions: Service Date/Time: Wednesday, February 15, 2017 12:04 - CONCLUSION: 1. Large pleural effusion on the left with pleural thickening and parenchymal mass on the right. Lung cancer is suspected. I do not see obvious metastatic disease in the abdomen. 2. Gallstones. Nick Murphy MD FACR Medication Review Current Medications Medications (Trade) Dose Ordered Sig/Debbie Route Start Time Stop Time Status Last Admin (NS Flush) 2 ml UNSCH PRN IVF 02/15/17 08:15 (Protonix Inj) 40 mg DAILY IV 02/15/17 11:30 02/17/17 09:25 Miscellaneous Information 1 Q361D XX 02/15/17 11:30 (Chlorhexidine 2% Cloth) 3 pack Taper DAILY@04 TOP 02/16/17 04:00 02/12/18 03:59 02/17/17 04:00 (Chlorhexidine 2% Cloth) 3 pack UNSCH PRN TOP 02/15/17 11:30 (D50w (Vial) Inj) 25 ml UNSCH PRN IV PUSH 02/15/17 11:30 (Glucagon Inj) 1 mg UNSCH PRN OTHER 02/15/17 11:30 Insulin Human Regular 1 1 Q6H SQ 02/15/17 11:30 02/17/17 11:30 Piperacillin Sod/ Tazobactam Sod 50 ml @ 100 mls/hr Q8H IV 02/16/17 13:00 02/17/17 13:33 (1/2 NS 1000 ml Inj) 1,000 ml @ 84 mls/hr [id number] IV 02/16/17 12:00 02/17/17 13:34 (Ginna-Colace) 1 tab BID PO 02/17/17 21:00 Physical Exam General Appearance: No Acute Distress, Comfortable Neck Neck Exam: Neck Supple, Trachea Midline Pulmonary Resp Exam: Clear Bilaterally, Breath Sounds Equal, No Distress Cardiology CV Exam: Regular, Normal Sinus Rhythm Gastrointestinal/Abdomen GI Exam: Soft, Non-Tender Integumentary Skin Exam: Clear, Warm, Dry Extremeties Extremities Exam: No Edema Assessment/Plan Problem List: (1) Renal insufficiency Plan: Uncertain of the patient's baseline renal functions. Serology pending Renal US shows no signs of hydronephrosis. Cortical thinning can be seen with CKD. Incidental multiple cysts. Continue on IVF. Medications should be adjusted for the patient's renal insufficiency. Avoid nephrotoxic medications such as iodinated contrast dyes and NSAIDs. Avoid gadolinium when eGFR <30. (2) Lung mass Plan: Suspicious for mets. Bx results pending Appreciate heme/onco input (3) Leukocytosis Plan: Mgmt as per oncology (4) Hypercalcemia Plan: Resolved with Aredia. (5) Hypernatremia Plan: Related to impaired free water intake. Resolved Continue on 1/2NS Rachel Blue Feb 17, 2017 18:05
[2017-02-17] MEDS: DOCUSATE SODIUM 50 MG/SENNA 8.6 MG TAB PO SCH (21:10)
[2017-02-18] VITALS (11 sets, daily range): BP systolic 85–99; BP diastolic 51–55; PULSE 87–98; RESP 23–28; TEMP 97.6–98.3; O2SAT 92–99
--- NOTE | 2017-02-18 02:23 | RADRPT ---
EXAM DATE/TIME: 02/18/2017 01:17 [facility] COMPARISON: CHEST SINGLE AP, February 17, 2017, 4:48. INDICATIONS : Shortness of breath, possible pulmonary disease. MEDICAL HISTORY : None. SURGICAL HISTORY : None. ENCOUNTER: Subsequent ACUITY: 4 - 6 days PAIN SCORE: 0/10 LOCATION: Bilateral chest FINDINGS: Small caliber left chest tube present. Small effusions. Bilateral lung masses present. Slight improve ment in left basilar consolidation of the last day. CONCLUSION: 1. Left chest tube without pneumothorax. Slight improvement in left basilar lung consolidation over t he last day. Multiple bilateral pulmonary masses. Christian Dueñas MD on February 18, 2017 at 2:20 Board Certified Radiologist. This report was verified electronically.
[2017-02-18] MEDS: RESP: ALBUTEROL 2.5 MG/IPRATROPIUM 0.5 MG NEB (SCH) INH ×6 (03:15→23:44)
[2017-02-18] MEDS: CHLORHEXIDINE GLUCONATE 2 % 1 PACK (2 CLOTHS) TOP SCH (04:00)
[2017-02-18 04:58] LABS: HEMATOCRIT 31.1 % (39.0-51.0); MEAN CELL VOLUME 88.2 FL (80.0-100.0); MEAN CORPUSCULAR HEMOGLOBIN 27.4 PG (27.0-34.0); MEAN CORPUSCULAR HGB CONC 31.1 % (32.0-36.0); PLATELET COUNT 391 TH/MM3 (150-450); RED BLOOD COUNT 3.53 MIL/MM3 (4.50-5.90); RED CELL DISTRIBUTION WIDTH 13.1 % (11.6-17.2); WHITE BLOOD COUNT 124.5 TH/MM3 (4.0-11.0)
[2017-02-18 05:01] LABS: REVIEW FLAG FINAL
[2017-02-18 05:05] LABS: INTERNATIONAL NORMALIZED RATIO 0.9 RATIO; PROTHROMBIN TIME - PATIENT 10.4 SEC (9.8-11.6)
[2017-02-18 05:26] LABS: BICARBONATE 24.7 MEQ/L (21.0-32.0); MAGNESIUM 2.5 MG/DL (1.5-2.5); POTASSIUM 3.9 MEQ/L (3.5-5.1)
[2017-02-18] MEDS: INSULIN NovoLIN REGULAR SUPPLEMENTAL SCALE SQ SCH ×3 (05:30→23:25)
[2017-02-18] MEDS: PIPERACIL-TAZO 3.375 GM PREMIX 50 ML IV SCH ×3 (05:39→20:19)
--- NOTE | 2017-02-18 08:42 | HHI.NPPN ---
Subjective History of Present Illness The patient is a 76 yo [place] male who presented to the ED on 02/15 with complaints of progressively worsening SOB x2 weeks. He is a very poor historian, so much of information is obtained through previous medical records. 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 This was all performed at [facility] in [place] , so further information is not available at the present. Uncertain if he had to have chemo or radiation, nor if he has been following locally with any physicians. On admission, it was noted that he had a severe L pleural effusion and subsequently had to have L chest tube placed. Imaging suspicious for metastatic disease. Initial drainage from CT was 3L. He has had aboout 500mL overnight. We were consulted for ISSAC. There are no other admission or labs to review to see where the patient's baseline renal functions actually are. Uncertain what medication if any are taken at home His admitting SCr was 1.70 that worsened to 2.10 at consult Ca was elevated at 10.5 and was given Aredia by oncology Interval History Pt resting. No events overnight. BP low this AM (Rachel Blue) Review of Systems General General Remarks Not obtainable this AM d/t sedation (Rachel Blue) Objective Data Data 02/17/17 02/18/17 19:00 07:00 Intake Total 1635 ml 1526 ml Output Total 750 ml 800 ml Balance 885 ml 726 ml Intake Oral 900 ml 160 ml IV Total 735 ml 1366 ml Output Urine Total 300 ml 700 ml Chest Tube Drainage Total 450 ml 100 ml # Bowel Movements 0 0 Vital Signs Date Time Temp Pulse Resp B/P Pulse Ox O2 Delivery O2 Flow Rate FiO2 02/18/17 07:35 94 Nasal Cannula 3.00 02/18/17 06:00 91 02/18/17 04:00 87 02/18/17 04:00 97.9 87 24 93/55 92 02/18/17 02:00 87 02/18/17 00:00 94 02/18/17 00:00 97.9 95 24 95/51 93 02/17/17 22:00 94 02/17/17 20:25 95 Nasal Cannula 3.00 02/17/17 20:00 97.9 100 26 101/55 93 02/17/17 20:00 100 02/17/17 16:00 97.8 98 27 91/51 98 02/17/17 12:00 97.5 109 24 99/56 93 (Rachel Blue) -: 02/18/17 0448 02/18/17 0448 Microbiology 02/17/17 Urine Culture, Received Pending Medication Review Current Medications Medications (Trade) Dose Ordered Sig/Debbie Route Start Time Stop Time Status Last Admin (NS Flush) 2 ml UNSCH PRN IVF 02/15/17 08:15 (Protonix Inj) 40 mg DAILY IV 02/15/17 11:30 02/17/17 09:25 Miscellaneous Information 1 Q361D XX 02/15/17 11:30 (Chlorhexidine 2% Cloth) 3 pack Taper DAILY@04 TOP 02/16/17 04:00 02/12/18 03:59 02/18/17 04:00 (Chlorhexidine 2% Cloth) 3 pack UNSCH PRN TOP 02/15/17 11:30 (D50w (Vial) Inj) 25 ml UNSCH PRN IV PUSH 02/15/17 11:30 (Glucagon Inj) 1 mg UNSCH PRN OTHER 02/15/17 11:30 Insulin Human Regular 1 1 Q6H SQ 02/15/17 11:30 02/17/17 23:33 Piperacillin Sod/ Tazobactam Sod 50 ml @ 100 mls/hr Q8H IV 02/16/17 13:00 02/18/17 05:39 (1/2 NS 1000 ml Inj) 1,000 ml @ 84 mls/hr [id number] IV 02/16/17 12:00 02/17/17 23:45 (Ginna-Colace) 1 tab BID PO 02/17/17 21:00 02/17/17 21:10 (Rachel Blue) Physical Exam General Appearance: No Acute Distress, Comfortable (Rachel Blue) Neck Neck Exam: Neck Supple, Trachea Midline (Rachel Blue) Pulmonary Resp Exam: Clear Bilaterally, Breath Sounds Equal, No Distress (Rachel Blue) Cardiology CV Exam: Regular, Normal Sinus Rhythm (Rachel Blue) Gastrointestinal/Abdomen GI Exam: Soft, Non-Tender (Rachel Blue) Integumentary Skin Exam: Clear, Warm, Dry (Rachel Blue) Extremeties Extremities Exam: No Edema (Rachel Blue) Assessment/Plan Problem List: (1) Renal insufficiency Plan: Uncertain of the patient's baseline renal functions. SCr improving daily with IVF--continue Serology pending Renal US shows no signs of hydronephrosis. Cortical thinning can be seen with CKD. Incidental multiple cysts. Medications should be adjusted for the patient's renal insufficiency. Avoid nephrotoxic medications such as iodinated contrast dyes and NSAIDs. Avoid gadolinium when eGFR <30. (2) Lung mass Plan: Suspicious for mets. Goals at this time remain aggressive as per palliative note (3) Leukocytosis Plan: Mgmt as per oncology (4) Hypercalcemia Plan: Resolved with Aredia. (5) Hypernatremia Plan: Related to impaired free water intake. Resolved Continue on 1/2NS (Rachel Blue) Plan The exam, history, and the medical decision-making described in the above note were completed with the assistance of the PA-C. I reviewed and agree with the findings presented. I attest that I had a [id number] encounter with the patient on the same day, and personally performed and documented my assessment and findings in the medical record. (Sondra Davison MD) Rachel Blue Feb 18, 2017 08:41 Sondra Davison MD Feb 18, 2017 17:01
--- NOTE | 2017-02-18 09:52 | HHI.CCPN ---
Subjective Remarks/Hospital Course The patient is a 76-year-old who denies any significant past medical history, presented to [facility] ED with respiratory distress. The patient states that he has been short of breath for the past 2 weeks and progressively worsened. He also reports productive cough with brown phlegm, however, he denies any fever, chills or any constitutional symptoms. The patient denies any nausea, vomiting or abdominal pain. He has not seen a physician for several years and is not on any medications at home. The patient has a remote history of tobacco use and used to smoke a pack a day for several years. On arrival to the ED the patient was tachycardic with heart rate of 120s, tachypneic and hypoxic. He was placed on a non-rebreather mask with current saturation of 98-99%. The chest x-ray in the ER showed large left pleural effusion occupying approximately two-third of the left lung field along with pulmonary masses worrisome for metastatic disease. His laboratory data is significant for acute kidney injury with a BUN of 43, creatinine 1.70, hypercalcemia with calcium level 10.5. In addition his WBC was 110.2, associated with bandemia of 22. In the ER he was given Lasix [address] scan of the chest, abdomen and pelvis was ordered by the ED, in addition interventional radiology was consulted by ER for chest tube placement. 02/16 Patient s/p CT placement by IR yesterday with removal 3L hemorrhagic fluid upon insertion additional 500ml drained overnight. Pleural effusion consistent with exudative picture. Afebrile. 02/17 No acute events overnight. Approximately 300 cc serosanguineous fluid draining from left chest tube. Patient's resting comfortably no dyspnea noted. 02/18: patient denies any complaints. states he ate breakfast this morning. eager to get out of bed to chair today. not very dyspneic on my exam. 500cc bloody drainage from left chest tube. Objective Vital Signs Date Time Temp Pulse Resp B/P Pulse Ox O2 Delivery O2 Flow Rate FiO2 02/18/17 07:35 94 Nasal Cannula 3.00 02/18/17 06:00 91 02/18/17 04:00 97.9 24 93/55 02/16/17 08:19 40 Intake and Output 02/17/17 02/17/17 02/18/17 08:00 16:00 00:00 Intake Total 635 ml 1635 ml 60 ml Output Total 700 ml 750 ml Balance -65 ml 885 ml 60 ml Result Diagram: 02/18/17 0448 02/18/17 0448 Other Results Microbiology Date/Time Procedure Status Source Growth 02/15/17 13:46 Gram Stain - Final Complete Fluid Pleural Fluid 02/15/17 13:46 Body Fluid Culture - Final Complete Fluid Pleural Fluid NO GROWTH IN 72 HRS.--AEROBICALLY OR ... Imaging Last Impressions Chest X-Ray 02/16/17 0000 Signed Impressions: Service Date/Time: Thursday, February 16, 2017 02:56 - CONCLUSION: 1. Small caliber left chest tube with tiny left apical pneumothorax, decreased from February 15. Christian Dueñas MD Head CT 02/15/17 0000 Signed Impressions: Service Date/Time: Wednesday, February 15, 2017 11:53 - CONCLUSION: Marked motion artifact. I do not see evidence for a mass. Nick Murphy MD FACR Chest Tube Insertion 02/15/17 0000 Signed Impressions: Service Date/Time: Wednesday, February 15, 2017 13:23 - CONCLUSION: Uncomplicated left chest tube placement as above. 3 L of bloody fluid was removed. Samples to the lab as requested. Metastatic lesions seen throughout the lungs bilaterally. Jermaine Chisholm Jr., MD Chest CT 02/15/17 0000 Signed Impressions: Service Date/Time: Wednesday, February 15, 2017 12:04 - CONCLUSION: Markedly abnormal CT scan of the chest with complete opacification of left hemithorax with consolidative changes about the left lung. Multiple soft tissue masses are seen on the right. Easiest way to obtain diagnosis is biopsy of the large mass anteriorly on the right. This could be biopsies percutaneously. Thoracentesis would be of benefit with tube placement on the left. Nick Murphy MD FACR Abdomen/Pelvis CT 02/15/17 0000 Signed Impressions: Service Date/Time: Wednesday, February 15, 2017 12:04 - CONCLUSION: 1. Large pleural effusion on the left with pleural thickening and parenchymal mass on the right. Lung cancer is suspected. I do not see obvious metastatic disease in the abdomen. 2. Gallstones. Nick Murphy MD FACR Objective Remarks GENERAL: Patient is 76 yo lying in bed in NAD. SKIN: Warm and dry. HEAD: Normocephalic. EYES: No scleral icterus. No injection or drainage. NECK: Supple, trachea midline. No JVD or lymphadenopathy. CARDIOVASCULAR: normal rate, regular rhythm without murmurs, gallops, or rubs. RESPIRATORY: Breath sounds equal bilaterally. No accessory muscle use. GASTROINTESTINAL: Abdomen soft, non-tender, nondistended. MUSCULOSKELETAL: No cyanosis, or edema. Partial amputation of left arm noted. BACK: Nontender without obvious deformity. Neuro: Awake, alert A/P Assessment and Plan 1. Acute hypoxemic respiratory failure. 2. Large left pleural effusion, s/p CT placement 3. Pulmonary masses, likely secondary to metastatic disease. 4. Acute kidney injury. 5. Hyperglycemia. 6. Hypercalcemia, likely related to malignancy. 7. Leukocytosis. possibly related to leukemoid reaction from lung mets 8 Hx Osteosarcoma with mets Plan Neuro: Monitor neuro status, avoid any sedatives. CT brain : no acute disease Pulm: Continue with oxygen and maintain sats above 92%. Bronchodilators prn Monitor CT drainage- Pulm is following For CT guided lung biopsy of right lung mass Pleural effusions consistent with exudative fluid likely related to malignancy follow up on cytology results pending OOB to chair today. water seal chest tube. AM cxr. CV: Monitor HR and BP and maintain MAP> 65 mmHg. : Monitor renal function, I's and O's and avoid nephrotoxins. Improvement -Cr: From 2.10 21.72, continue IVF 1/2NS@84ml/hr Nephrology following CT abdomen/pelvis: no metastatic disease, b/l renal cysts. Patient s/p Aredia x 1 dose yesterday for hypercalcemia ( Ca 10.5) 9.7 this morning. GI: tolerating diabetic diet, on Protonix 40 mg IV daily for GI prophylaxis. ID: Continue with empiric abx( Zosyn )and monitor for signs of infections( fever and WBC). Check sputum culture & urinalysis with culture if indicated. Heme: Monitor CBC. Oncology is following Endo: SSI with Accu-Chek q. 6-hours for glycemic control. GI prophylaxis with Protonix 40 mg daily and DVT prophylaxis with SCDs. No pharmacological anticoagulation prophylaxis given hemorrhagic effusion dispo: stable for transfer to floor. consult hospitalist. Sharif Kline MD Feb 18, 2017 09:52
[2017-02-18] MEDS: PANTOPRAZOLE SODIUM 40 MG VIAL IV SCH (10:02)
[2017-02-18] MEDS: CHOLECALCIFEROL (VIT D3) 1000 UNIT TAB PO SCH (10:02)
[2017-02-18] MEDS: DOCUSATE SODIUM 50 MG/SENNA 8.6 MG TAB PO SCH ×2 (10:04→20:19)
[2017-02-18] MEDS: SODIUM CHLOR 0.45% 1000 ML INJ 1,000 ML IV SCH ×2 (11:40→23:24)
--- NOTE | 2017-02-18 13:45 | PD.ONC.PN ---
Subjective Subjective Remarks Afebrile overnight. Per RN he has had no issues overnight. Objective Data Date Time Temp Pulse Resp B/P Pulse Ox O2 Delivery O2 Flow Rate FiO2 02/18/17 07:35 94 Nasal Cannula 3.00 02/18/17 06:00 91 02/18/17 04:00 87 02/18/17 04:00 97.9 87 24 93/55 92 02/18/17 02:00 87 02/18/17 00:00 94 02/18/17 00:00 97.9 95 24 95/51 93 02/17/17 22:00 94 02/17/17 20:25 95 Nasal Cannula 3.00 02/17/17 20:00 97.9 100 26 101/55 93 02/17/17 20:00 100 02/17/17 16:00 97.8 98 27 91/51 98 02/18/17 02/18/17 02/18/17 07:00 15:00 23:00 Intake Total 1466 ml Output Total 800 ml Balance 666 ml Result Diagram: 02/18/17 0448 02/18/17 0448 Laboratory Results Laboratory Tests Test 02/18/17 04:48 White Blood Count 124.5 TH/MM3 Red Blood Count 3.53 MIL/MM3 Hemoglobin 9.7 GM/DL Hematocrit 31.1 % Mean Corpuscular Volume 88.2 FL Mean Corpuscular Hemoglobin 27.4 PG Mean Corpuscular Hemoglobin 31.1 % Concent Red Cell Distribution Width 13.1 % Platelet Count 391 TH/MM3 Mean Platelet Volume 8.0 FL Prothrombin Time 10.4 SEC Prothromb Time International 0.9 RATIO Ratio Sodium Level 143 MEQ/L Potassium Level 3.9 MEQ/L Chloride Level 109 MEQ/L Carbon Dioxide Level 24.7 MEQ/L Anion Gap 9 MEQ/L Blood Urea Nitrogen 50 MG/DL Creatinine 1.49 MG/DL Estimat Glomerular Filtration 46 ML/MIN Rate Random Glucose 129 MG/DL Calcium Level 8.0 MG/DL Phosphorus Level 2.4 MG/DL Magnesium Level 2.5 MG/DL Culture Results Microbiology Date/Time Procedure Status Source Growth 02/15/17 13:46 Cancelled Fluid Pleural Fluid 02/15/17 13:46 Gram Stain - Final Complete Fluid Pleural Fluid 02/15/17 13:46 Body Fluid Culture - Final Complete Fluid Pleural Fluid NO GROWTH IN 72 HRS.--AEROBICALLY OR ... 02/15/17 13:46 Acid Fast Stain - Final Resulted Fluid Pleural Fluid NO ACID FAST BACILLI SEEN 02/15/17 13:46 Mycobacterial Culture Resulted Fluid Pleural Fluid Pending 02/16/17 15:45 Gram Stain - Final Resulted Wound Lung 02/16/17 15:45 Wound Culture - Preliminary Resulted Wound Lung NO GROWTH IN 48 HOURS. 02/16/17 15:45 Acid Fast Stain - Final Resulted Wound Lung NO ACID FAST BACILLI SEEN 02/16/17 15:45 Mycobacterial Culture Resulted Wound Lung Pending 02/16/17 15:45 Fungal Smear - Final Resulted Wound Lung NO FUNGAL ELEMENTS SEEN. 02/16/17 15:45 Fungal Culture Resulted Wound Lung Pending 02/17/17 11:00 Urine Culture - Preliminary Resulted Urine Random Urine NO GROWTH IN 24 HOURS. Imaging Studies Last 24 hours Impressions Chest X-Ray 02/18/17 0600 Signed Impressions: Service Date/Time: January 01:17 - CONCLUSION: 1. Left chest tube without pneumothorax. Slight improvement in left basilar lung consolidation over the last day. Multiple bilateral pulmonary masses. Christian Dueñas MD Administered Medications Medications (Trade) Dose Ordered Sig/Debbie Route PRN Reason Start Time Stop Time Status Last Admin Dose Admin Pantoprazole Sodium (Protonix Inj) 40 mg DAILY IV 02/15/17 11:30 02/18/17 10:02 Chlorhexidine Gluconate (Chlorhexidine 2% Cloth) 3 pack Taper DAILY@04 TOP 02/16/17 04:00 02/12/18 03:59 02/18/17 04:00 Insulin Human Regular 1 1 Q6H SQ 02/15/17 11:30 02/17/17 23:33 Piperacillin Sod/ Tazobactam Sod 50 ml @ 100 mls/hr Q8H IV 02/16/17 13:00 02/18/17 12:35 Sodium Chloride (1/2 NS 1000 ml Inj) 1,000 ml @ 84 mls/hr [id number] IV 02/16/17 12:00 02/17/17 23:45 Senna/Docusate Sodium (Ginna-Colace) 1 tab BID PO 02/17/17 21:00 02/18/17 10:04 Cholecalciferol (Vitamin D3) 2,000 units DAILY PO 02/18/17 09:00 02/18/17 10:02 Objective Remarks GENERAL: Elderly male, lying in bed on 3L NC. SKIN: Warm and dry. HEAD: Normocephalic. EYES: No injection or drainage. NECK: Supple, trachea midline. CARDIOVASCULAR: +S1/S2 RESPIRATORY: Scattered rhonchi anteriorly. Chest tube draining sanguinous fluid. Output decreased from yesterday. GASTROINTESTINAL: Abdomen soft, non-tender, nondistended. EXTREMITIES: No cyanosis. SCD's to BLE. Left hand s/p amputation NEUROLOGICAL: Somewhat confused. Awake, normal speech. Moving all extremities. 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 Await test results. Would continue current treatment plan while waiting on test results. CXR slightly improved today. History November 2015: presented to ED at [facility] Dr. Portillo ordered MRI, showed soft tissue mass, referred to Dr. 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 CT chest showed pulmonary masses and pleural effusion. CT ab/pelvis: no mets (2) Pleural effusion on left Status: Acute Plan: --s/p thoracentesis and chest tube placement. --cytology pending. (3) Leukocytosis Status: Acute Plan: -- Leukocytosis with neutrophilia and bandemia and no peripheral blasts. --most likely reactive process such as leukemoid reaction from lung mets and sepsis or this could be from myeloproliferative disorder. --no peripheral blast. --BCR-ABL by FISH and AARON-2 mutation for evaluation of myeloproliferative disorder pending (4) Hypercalcemia Status: Acute Plan: --IVF -- s/p Aredia x 1 dose. (5) Altered mental status Status: Acute Plan: --?d/t metabolic encephalopathy? Assessment 76y/o male admitted to [facility] with respiratory insufficiency. Oncology consulted for evaluation of leukocytosis and bilateral pulmonary masses. 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 Sister Ashley is a registered nurse. She lives in [facility]. Her telephone number is [phone]. Attending Statement no new c/o D/W DR Chisholm ( Pathologist) . He will finilize the report later today. Will start palliative chemo soon. Odalis Brennan Feb 18, 2017 13:45 Deven Schneider MD Feb 19, 2017 01:03
--- NOTE | 2017-02-18 14:35 | HHI.HCPN ---
Reason for visit a. To assist with evaluation and management of symptoms including: dyspnea, anxiety b. To assist medical decision maker(s) with: better understanding of current medical conditions; weighing benefits/burdens of medical treatment options; making medical treatment decisions. . Subjective/Interval History Mr. Fermin is a 76 year old male who presented to [facility] on 02/15/17 for evaluation of severe respiration distress with an oxygen saturation of 84% on RA, increasingly to 92% on 4L oxygen via nasal cannula. He was subsequently placed on 15 L oxygen via nonrebreather, dyspnea decreased and oxygen saturations were in the mid to high 90s. Patient was admitted to critical care with acute toxic respiratory failure, left pleural effusion and lung mass. Pulmonology, hematology/oncology and nephrology are following. = WBC of 110,000 on admission, increased to 124,5000 today = Imaging shows metastatic disease to the lungs with a large pleural effusion that occupies the majority of the left hemothorax. A left chest tube was placed and 3 L of bloody fluid was removed, cytology pending. Follow-up chest x -ray showing a 1.3 cm pneumothorax despite chest tube. Follow-up chest x-ray on shows slight improvement in left basilar lung consolidation. Apparently the patient was seen at [place] ED in November, for evaluation of swelling of the first wet of the left hand, an MRI showed a soft tissue mass consistent with a malignancy such as a sarcoma. The patient was then referred to Dr. Tesfaye, orthopedic oncologist, at [facility] in [place]. 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 A CT of the chest showed multiple bilateral pulmonary nodules consistent with metastatic disease. It is unclear if the patient had any follow -up. Dr. Schneider, hematology/oncology, was consulted for evaluation of leukocytosis and bilateral pulmonary masses. Per Dr. Schneider, leukocytosis is most likely related to a leukemoid reaction from lung metastases and sepsis or this could be a form of myeloproliferative disorder. BCR-ABL by FISH and AARON-2 mutation for evaluation of myeloproliferative disorder pending . Advance Directives Living Will: Never completed Health Care Surrogate: Copy in medical record Durable Power of Rougher Machine Operator: Never completed Advance Directive Specifics Date completed: 02/17/17 . Health Care Surrogate(s): Patient has designated his sister, Ashley Bustos, as his health care surrogate. . Documented care wishes: No documented care wishes have been completed at this time. . Objective Vital Signs Date Time Temp Pulse Resp B/P Pulse Ox O2 Delivery O2 Flow Rate FiO2 02/18/17 07:35 94 Nasal Cannula 3.00 02/18/17 06:00 91 02/18/17 04:00 87 02/18/17 04:00 97.9 87 24 93/55 92 02/18/17 02:00 87 02/18/17 00:00 94 02/18/17 00:00 97.9 95 24 95/51 93 02/17/17 22:00 94 02/17/17 20:25 95 Nasal Cannula 3.00 02/17/17 20:00 97.9 100 26 101/55 93 02/17/17 20:00 100 02/17/17 16:00 97.8 98 27 91/51 98 Intake & Output 02/18/17 02/18/17 06:59 18:59 Intake Total 1526 ml Output Total 800 ml Balance 726 ml Intake Oral 160 ml IV Total 1366 ml Output Urine Total 700 ml Chest Tube Drainage Total 100 ml # Bowel Movements 0 . Physical Exam CONSTITUTIONAL/GENERAL: This is a frail, elderly male patient in no acute distress TUBES/LINES/DRAINS: PIV x 2, Chest tube, Chan SKIN: No jaundice, rashes, or lesions. Ecchymoses on upper extremities. No wounds seen anteriorly. Skin temperature appropriate. Not diaphoretic. HEAD: Atraumatic. Normocephalic. EYES: Pupils equal, round and reactive. Extraocular motions intact. No scleral icterus. No injection or drainage. Fundi not examined. ENT: Hearing grossly normal. Nose without bleeding or purulent drainage. Poor dentation. NECK: Trachea midline. Supple, nontender. No palpable thyroid enlargement or nodularity. CARDIOVASCULAR: Regular rate and rhythm. No murmurs, gallops, or rubs. No JVD. Peripheral pulses symmetric. RESPIRATORY/CHEST: Intermittent tachypnea, worsening with conversation. Breath sounds diminished with scattered rhonchi.Chest tube draining with sanguinous fluid, decreased output since yesterday. GASTROINTESTINAL: Abdomen soft, non-tender, nondistended. No hepato-splenomegaly , or palpable masses. No guarding. Bowel sounds present. GENITOURINARY: Without palpable bladder distension. Chan catheter in place. MUSCULOSKELETAL: Extremities without clubbing, cyanosis, or edema. LYMPHATICS: No palpable cervical or supraclavicular adenopathy. NEUROLOGICAL: Awake and alert, difficult to understand at time. Response to most questions, "Yep, Yep". Intermittent confused. PSYCHIATRIC: No obvious anxiety/depression. no apparent hallucinations or other psychotic thought process. . Diagnostic Tests Laboratory Laboratory Tests Test 02/15/17 02/15/17 02/15/17 02/16/17 15:10 16:54 20:37 03:09 Nasal Screen MRSA (PCR) NEGATIVE (NEGATIVE) White Blood Count 114.2 TH/MM3 109.7 TH/MM3 (4.0-11.0) (4.0-11.0) Red Blood Count 4.20 MIL/MM3 3.99 MIL/MM3 (4.50-5.90) (4.50-5.90) Hemoglobin 11.7 GM/DL 11.3 GM/DL (13.0-17.0) (13.0-17.0) Hematocrit 37.5 % 35.1 % (39.0-51.0) (39.0-51.0) Mean Corpuscular Volume 89.2 FL 88.0 FL (80.0-100.0) (80.0-100.0) Mean Corpuscular Hemoglobin 27.9 PG 28.3 PG (27.0-34.0) (27.0-34.0) Mean Corpuscular Hemoglobin 31.3 % 32.1 % Concent (32.0-36.0) (32.0-36.0) Red Cell Distribution Width 13.3 % 13.4 % (11.6-17.2) (11.6-17.2) Platelet Count 478 TH/MM3 522 TH/MM3 (150-450) (150-450) Mean Platelet Volume 8.6 FL 8.5 FL (7.0-11.0) (7.0-11.0) Neutrophils (%) (Auto) 97.6 % % (16.0-70.0) (16.0-70.0) Lymphocytes (%) (Auto) 1.3 % % (9.0-44.0) (9.0-44.0) Monocytes (%) (Auto) 0.9 % (0.0-8.0) % (0.0-8.0) Eosinophils (%) (Auto) 0.0 % (0.0-4.0) % (0.0-4.0) Basophils (%) (Auto) 0.2 % (0.0-2.0) % (0.0-2.0) Neutrophils # (Auto) 111.6 TH/MM3 TH/MM3 (1.8-7.7) (1.8-7.7) Lymphocytes # (Auto) 1.4 TH/MM3 TH/MM3 (1.0-4.8) (1.0-4.8) Monocytes # (Auto) 1.0 TH/MM3 TH/MM3 (0-0.9) (0-0.9) Eosinophils # (Auto) 0.0 TH/MM3 TH/MM3 (0-0.4) (0-0.4) Basophils # (Auto) 0.2 TH/MM3 TH/MM3 (0-0.2) (0-0.2) CBC Comment AUTO DIFF AUTO DIFF Differential Total Cells 100 200 Counted Neutrophils % (Manual) 69 % (16-70) 85 % (16-70) Band Neutrophils % 27 % (0-6) 11 % (0-6) Lymphocytes % 2 % (9-44) 2 % (9-44) Monocytes % 2 % (0-8) 3 % (0-8) Neutrophils # (Manual) 109.6 TH/MM3 106.4 TH/MM3 (1.8-7.7) (1.8-7.7) Differential Comment FINAL DIFF FINAL DIFF MANUAL MANUAL Toxic Granulation 1+ (NORMAL) Toxic Vacuolation PRESENT (NONE SEEN) Platelet Estimate HIGH (NORMAL) HIGH (NORMAL) Platelet Morphology Comment NORMAL NORMAL (NORMAL) (NORMAL) Red Cell Morphology Comment NORMAL (NORMAL) Sodium Level 146 MEQ/L 148 MEQ/L (136-145) (136-145) Potassium Level 4.4 MEQ/L 4.2 MEQ/L (3.5-5.1) (3.5-5.1) Chloride Level 109 MEQ/L 112 MEQ/L (98-107) (98-107) Carbon Dioxide Level 25.4 MEQ/L 24.4 MEQ/L (21.0-32.0) (21.0-32.0) Anion Gap 12 MEQ/L (5-15) 12 MEQ/L (5-15) Blood Urea Nitrogen 57 MG/DL (7-18) 58 MG/DL (7-18) Creatinine 2.13 MG/DL 2.10 MG/DL (0.60-1.30) (0.60-1.30) Estimat Glomerular Filtration 31 ML/MIN (>89) 31 ML/MIN (>89) Rate Random Glucose 195 MG/DL 155 MG/DL (74-106) (74-106) Calcium Level 9.7 MG/DL 9.7 MG/DL (8.5-10.1) (8.5-10.1) Total Bilirubin 0.4 MG/DL 0.5 MG/DL (0.2-1.0) (0.2-1.0) Aspartate Amino Transf 14 U/L (15-37) 14 U/L (15-37) (AST/SGOT) Alanine Aminotransferase 13 U/L (12-78) 14 U/L (12-78) (ALT/SGPT) Alkaline Phosphatase 138 U/L 150 U/L (45-117) (45-117) Total Protein 6.2 GM/DL 6.2 GM/DL (6.4-8.2) (6.4-8.2) Albumin 2.6 GM/DL 2.5 GM/DL (3.4-5.0) (3.4-5.0) Metamyelocytes 1 % (0-1) Immunophenotypic Analysis (T) Test 02/16/17 02/17/17 02/17/17 02/18/17 16:30 04:20 11:00 04:48 Parathyroid Hormone (Intact) 36.3 PG/ML (12.4-76.8) Complement C3 145 MG/DL (90-180) Complement C4 30 MG/DL (10-40) Total Protein 5.9 GM/DL (6.0-7.6) 25-Hydroxy Vitamin D Total 10.0 ng/ML (30-100) Immunoglobulin G Total 497 MG/DL (680-1670) Immunoglobulin A 167 MG/DL (103-568) Immunoglobulin M 41 MG/DL (38-231) Immunoglobulin Mildred/Lambda 1.57 Ratio (1.57-3.93) Mildred Light Chain Analysis 137 MG/DL (170-370) Lambda Light Chain Analysis 87 MG/DL (90-210) White Blood Count 104.6 TH/MM3 124.5 TH/MM3 (4.0-11.0) (4.0-11.0) Red Blood Count 3.67 MIL/MM3 3.53 MIL/MM3 (4.50-5.90) (4.50-5.90) Hemoglobin 10.3 GM/DL 9.7 GM/DL (13.0-17.0) (13.0-17.0) Hematocrit 32.7 % 31.1 % (39.0-51.0) (39.0-51.0) Mean Corpuscular Volume 89.2 FL 88.2 FL (80.0-100.0) (80.0-100.0) Mean Corpuscular Hemoglobin 28.0 PG 27.4 PG (27.0-34.0) (27.0-34.0) Mean Corpuscular Hemoglobin 31.4 % 31.1 % Concent (32.0-36.0) (32.0-36.0) Red Cell Distribution Width 13.5 % 13.1 % (11.6-17.2) (11.6-17.2) Platelet Count 430 TH/MM3 391 TH/MM3 (150-450) (150-450) Mean Platelet Volume 8.5 FL 8.0 FL (7.0-11.0) (7.0-11.0) Neutrophils (%) (Auto) % (16.0-70.0) Lymphocytes (%) (Auto) % (9.0-44.0) Monocytes (%) (Auto) % (0.0-8.0) Eosinophils (%) (Auto) % (0.0-4.0) Basophils (%) (Auto) % (0.0-2.0) Neutrophils # (Auto) TH/MM3 (1.8-7.7) Lymphocytes # (Auto) TH/MM3 (1.0-4.8) Monocytes # (Auto) TH/MM3 (0-0.9) Eosinophils # (Auto) TH/MM3 (0-0.4) Basophils # (Auto) TH/MM3 (0-0.2) CBC Comment AUTO DIFF Differential Total Cells 100 Counted Neutrophils % (Manual) 67 % (16-70) Band Neutrophils % 17 % (0-6) Lymphocytes % 8 % (9-44) Monocytes % 7 % (0-8) Neutrophils # (Manual) 88.9 TH/MM3 (1.8-7.7) Myelocytes 1 % (0-0) Differential Comment FINAL DIFF MANUAL Toxic Granulation 1+ (NORMAL) Toxic Vacuolation PRESENT (NONE SEEN) Platelet Estimate NORMAL (NORMAL) Platelet Morphology Comment NORMAL (NORMAL) Sodium Level 144 MEQ/L 143 MEQ/L (136-145) (136-145) Potassium Level 3.6 MEQ/L 3.9 MEQ/L (3.5-5.1) (3.5-5.1) Chloride Level 110 MEQ/L 109 MEQ/L (98-107) (98-107) Carbon Dioxide Level 24.4 MEQ/L 24.7 MEQ/L (21.0-32.0) (21.0-32.0) Anion Gap 10 MEQ/L (5-15) 9 MEQ/L (5-15) Blood Urea Nitrogen 55 MG/DL (7-18) 50 MG/DL (7-18) Creatinine 1.72 MG/DL 1.49 MG/DL (0.60-1.30) (0.60-1.30) Estimat Glomerular Filtration 39 ML/MIN (>89) 46 ML/MIN (>89) Rate Random Glucose 136 MG/DL 129 MG/DL (74-106) (74-106) Calcium Level 8.5 MG/DL 8.0 MG/DL (8.5-10.1) (8.5-10.1) Urine Color YELLOW (YELLW/STRAW) Urine Turbidity CLOUDY (CLEAR) Urine pH 5.5 (5.0-8.5) Urine Specific Mcdaniels 1.021 (1.002-1.035) Urine Protein 30 mg/dL (NEG-TRACE) Urine Glucose (UA) NEG mg/dL (NEG) Urine Ketones NEG mg/dL (NEG) Urine Occult Blood LARGE (NEG) Urine Nitrite NEG (NEG) Urine Bilirubin NEG (NEG) Urine Urobilinogen LESS THAN 2.0 MG/DL (LESS THAN 2.0) Urine Leukocyte Esterase LARGE (NEG) Urine RBC /hpf (0-3) Urine WBC /hpf (0-5) Urine Uric Acid Crystals MANY /hpf (NONE) Urine Bacteria FEW /hpf (NONE) Microscopic Urinalysis Comment CULTURE INDICATED Urine Eosinophils NONE SEEN /HPF (NONE SEEN) Prothrombin Time 10.4 SEC (9.8-11.6) Prothromb Time International 0.9 RATIO Ratio Phosphorus Level 2.4 MG/DL (2.5-4.9) Magnesium Level 2.5 MG/DL (1.5-2.5) . Result Diagram: 02/18/1744702/18/178 Microbiology Microbiology Date/Time Procedure Status Source Growth 02/16/17 15:45 Gram Stain - Final Resulted Wound Lung 02/16/17 15:45 Wound Culture - Preliminary Resulted Wound Lung NO GROWTH IN 48 HOURS. 02/16/17 15:45 Acid Fast Stain - Final Resulted Wound Lung NO ACID FAST BACILLI SEEN 02/16/17 15:45 Mycobacterial Culture Resulted Wound Lung Pending 02/16/17 15:45 Fungal Smear - Final Resulted Wound Lung NO FUNGAL ELEMENTS SEEN. 02/16/17 15:45 Fungal Culture Resulted Wound Lung Pending 02/17/17 11:00 Urine Culture - Preliminary Resulted Urine Random Urine NO GROWTH IN 24 HOURS. . Imaging Last 72 hours Impressions Chest X-Ray 02/18/17 0600 Signed Impressions: Service Date/Time: January 01:17 - CONCLUSION: 1. Left chest tube without pneumothorax. Slight improvement in left basilar lung consolidation over the last day. Multiple bilateral pulmonary masses. Christian Dueñas MD Chest X-Ray 02/17/17 0000 Signed Impressions: Service Date/Time: Friday, February 17, 2017 04:48 - CONCLUSION: 1. Placement of small caliber left chest tube with marked decrease in size of left pleural effusion since February 15. Bilateral lung masses again noted. Christian Dueñas MD Lung Biopsy CT 02/16/17 1326 Signed Impressions: Service Date/Time: Thursday, February 16, 2017 15:26 - CONCLUSION: Uncomplicated CT guided biopsy. Mark Martell MD Renal Ultrasound 02/16/17 0000 Signed Impressions: Service Date/Time: Thursday, February 16, 2017 17:36 - CONCLUSION: Multiple bilateral renal cysts. Renal cortical thinning. Cholelithiasis. Small left pleural effusion. Pola Cortes MD Chest X-Ray 02/16/17 0000 Signed Impressions: Service Date/Time: Thursday, February 16, 2017 16:31 - CONCLUSION: 1. Bilateral bulky pulmonary nodules. 2. Left-sided pleural effusion. There is a [place] loop catheter seen just cephalad to the effusion. 3. No pneumothorax post biopsy. Dago Hines MD Chest X-Ray 02/16/17 0000 Signed Impressions: Service Date/Time: Thursday, February 16, 2017 02:56 - CONCLUSION: 1. Small caliber left chest tube with tiny left apical pneumothorax, decreased from February 15. Christian Dueñas MD . Procedures 02/15/17: Chest tube placement 02/15/17: Thoracentesis . 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 Fermin has 3 sisters (2 of the sisters were half-sisters) and 2 brothers (1 brother was a half-brother). One sister and one brother are , along with the patient's mother and father who from natural causes in their 90s. The patient is , living independently by himself. 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 He has 3 adult children, all are alive and well. Spiritual: Yazidi errol Legal: Patient's sister, Ashley Bustos, is the designated HCS. Ethical issues impacting care: No known ethical issues impacting care. . Important Contacts Ashley Bustos, sister: [phone] . 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 A CT chest at that time showed multiple bilateral pulmonary nodules consistent with metastatic disease. It is unclear at this time if the patient was referred to an oncologist for evaluation/treatment of his metastatic disease. Patient is now admitted to [facility] [place] with severe respiratory distress, WBC of 110,000. Imaging consistent with metastatic disease to the lungs with a large plural effusion that occupies the majority of the left hemothorax s/p chest tube placement. Cytology and biopsies are pending. Patient likely has extensive widespread metastatic disease, overall prognosis is poor. . Code Status: Full Code Plan * FULL CODE * Decision making: Patient designated his sister, Ashley Bustos, as the health care surrogate. * Goals: Goals are aggressive pending biopsy results. * Discussed, at length, the process of cardiopulmonary resuscitation including compressions, medications, cardioversion and intubation/mechanical ventilation. Patient states he has to get to [place] to his sister's home and that he wants everything done during this hospitalization to help him get there. CODE STATUS remains FULL CODE * Cytology and biopsies pending. * BCR-ABL by FISH and AARON-2 mutation for evaluation of a myeloproliferative disorder - results pending. * Symptom management- dyspnea: Patient presented to [place] ED for evaluation of severe dyspnea. Intermittent tachypnea, worsening with conversation. Breath sounds diminished with scattered rhonchi.Chest tube draining with sanguinous fluid, decreased output since yesterday. Follow-up chest x-ray showing a 1.3 cm pneumothorax despite chest tube. Follow-up chest x-ray on 02/18/17 shows slight improvement in left basilar lung consolidation. * Symptom managementanxiety: Anxiety is likely secondary to respiratory distress. May consider low dose lorazepam 0.5mg PO as needed for symptom management. * Palliative care will continue to follow throughout his hospitalization to establish trust, sips with symptom management and clarification of medical treatment goals. . Attestation To help prompt me to consider important information that might be impacting today's encounter and assessment, information from prior notes written by myself or my colleagues may have been "brought forward" into today's note. My signature on this note, however, is an attestation that I personally performed the exam, history, and/or decision-making noted today, and, unless otherwise indicated, the interactions with patient, family, and staff as well as the review of records all occurred today. I also attest that the listed assessment and stated plan reflect my best clinical judgment today based on the combination of historical information, prior notes, and today's exam/ interactions. When time spent is documented, it refers only to time spent today by the signer, or if indicated, combined time spent today by collaborating physician/nurse practitioner. . Charmaine Nam Feb 18, 2017 14:35
--- NOTE | 2017-02-18 16:48 | HHI.PR ---
Subjective Remarks Chest tube in place needle lung biopsy done no distress on O2 Objective Vital Signs Date Time Temp Pulse Resp B/P Pulse Ox O2 Delivery O2 Flow Rate FiO2 02/18/17 07:35 94 Nasal Cannula 3.00 02/18/17 06:00 91 02/18/17 04:00 87 02/18/17 04:00 97.9 87 24 93/55 92 02/18/17 02:00 87 02/18/17 00:00 94 02/18/17 00:00 97.9 95 24 95/51 93 02/17/17 22:00 94 02/17/17 20:25 95 Nasal Cannula 3.00 02/17/17 20:00 97.9 100 26 101/55 93 02/17/17 20:00 100 I/O 02/17/17 02/17/17 02/17/17 02/18/17 02/18/17 02/18/17 07:00 15:00 23:00 07:00 15:00 23:00 Intake Total 635 ml 1635 ml 60 ml 1466 ml Output Total 700 ml 750 ml 800 ml Balance -65 ml 885 ml 60 ml 666 ml Intake Oral 60 ml 900 ml 60 ml 100 ml IV Total 575 ml 735 ml 1366 ml Output Urine Total 300 ml 300 ml 700 ml Chest Tube Drainage Total 400 ml 450 ml 100 ml # Bowel Movements 0 0 0 Result Diagram: 02/18/1744702/[id number]/17447 Objective Remarks GENERAL: SKIN: Warm and dry. HEAD: Atraumatic. Normocephalic. EYES: Pupils equal and round. No scleral icterus. No injection or drainage. ENT: No nasal bleeding or discharge. Mucous membranes pink and moist. NECK: Trachea midline. No JVD. CARDIOVASCULAR: Regular rate and rhythm. RESPIRATORY: No accessory muscle use. Clear to auscultation. Breath sounds equal bilaterally. GASTROINTESTINAL: Abdomen soft, non-tender, nondistended. Hepatic and splenic margins not palpable. MUSCULOSKELETAL: Extremities without clubbing, cyanosis, or edema. No obvious deformities. NEUROLOGICAL: Awake and alert. No obvious cranial nerve deficits. Motor grossly within normal limits. Five out of 5 muscle strength in the arms and legs. Normal speech. PSYCHIATRIC: Appropriate mood and affect; insight and judgment normal. Assessment and Plan Assessment and Plan RESPIRATORY FAILURE LUNG MASSES ? METS PLEURAL EFFUSION , MOST LIKELY MALIGNANT PLAN CHECK CYTOLOGY , PLEURAL FLUID CHECK BIOPSY RESULTS O2 NEEDED ANTIBIOTICS FOLLOW WBC COUNT Jerson Arthur MD Feb 18, 2017 16:48
[2017-02-18 17:34] LABS: ALPHA 1 GLOBULIN 0.38 GM/DL (0.11-0.29); ALPHA 2 GLOBULIN 1.16 GM/DL (0.22-1.00); BETA GLOBULINS (SPE) 0.78 GM/DL (0.53-1.03)
[2017-02-19] VITALS (15 sets, daily range): BP systolic 85–101; BP diastolic 43–60; PULSE 85–98; RESP 18–23; TEMP 96.3–98.6; O2SAT 92–96
[2017-02-19] MEDS: RESP: ALBUTEROL 2.5 MG/IPRATROPIUM 0.5 MG NEB (SCH) INH ×3 (03:44→11:00)
[2017-02-19 03:51] LABS: KAPPA/LAMBDA FREE 1.17 (0.26-1.65); MYELOPEROXIDASE LESS THAN 1.0 AI (<1.0); PROTEINASE-3 LESS THAN 1.0 AI (<1.0)
[2017-02-19] MEDS: CHLORHEXIDINE GLUCONATE 2 % 1 PACK (2 CLOTHS) TOP SCH (04:00)
[2017-02-19 04:21] LABS: HEMATOCRIT 27.9 % (39.0-51.0); MEAN CELL VOLUME 88.8 FL (80.0-100.0); MEAN CORPUSCULAR HEMOGLOBIN 28.3 PG (27.0-34.0); MEAN CORPUSCULAR HGB CONC 31.9 % (32.0-36.0); PLATELET COUNT 382 TH/MM3 (150-450); RED BLOOD COUNT 3.14 MIL/MM3 (4.50-5.90); RED CELL DISTRIBUTION WIDTH 13.2 % (11.6-17.2); WHITE BLOOD COUNT 138.6 TH/MM3 (4.0-11.0)
[2017-02-19 04:25] LABS: REVIEW FLAG FINAL
[2017-02-19 04:50] LABS: BICARBONATE 24.2 MEQ/L (21.0-32.0); POTASSIUM 3.9 MEQ/L (3.5-5.1)
[2017-02-19 05:04] LABS: CALCIUM-PROTEIN CORRECTED 8.5 MG/DL (8.5-10.1)
[2017-02-19] MEDS: INSULIN NovoLIN REGULAR SUPPLEMENTAL SCALE SQ SCH ×4 (05:30→22:33)
[2017-02-19] MEDS: PIPERACIL-TAZO 3.375 GM PREMIX 50 ML IV SCH ×3 (05:35→20:50)
--- NOTE | 2017-02-19 06:06 | RADRPT ---
EXAM DATE/TIME: 02/19/2017 04:24 [place] COMPARISON: CHEST SINGLE AP, February 18, 2017, 1:17. INDICATIONS : Shortness of breath. MEDICAL HISTORY : None. SURGICAL HISTORY : None. ENCOUNTER: Subsequent ACUITY: 4 - 6 days PAIN SCORE: Non-responsive. LOCATION: Bilateral chest FINDINGS: Portable AP view of the chest demonstrates a normal-sized cardiac silhouette. Left chest tube remains present. No pneumothorax is visualized. The innumerable large bilateral pulmonary masses remain pres ent along with suspected consolidation in the lower lung zones. Bones demonstrate no acute finding. CONCLUSION: Stable chest x-ray with bilateral pulmonary masses and suspected consolidation. Brian Olivas MD on February 19, 2017 at 6:03 Board Certified Radiologist. This report was verified electronically.
[2017-02-19] MEDS: PANTOPRAZOLE SODIUM 40 MG VIAL IV SCH (08:32)
[2017-02-19] MEDS: CHOLECALCIFEROL (VIT D3) 1000 UNIT TAB PO SCH (08:32)
[2017-02-19] MEDS: DOCUSATE SODIUM 50 MG/SENNA 8.6 MG TAB PO SCH ×2 (08:32→21:00)
[2017-02-19] MEDS ORDERED: ceFAZolin 2 GM PREMIX 50 ML IV SCH (10:45)
[2017-02-19] MEDS ORDERED: VANCOMYCIN HCL 1000 MG ON-CALL/NS 250 ML IV SCH ×2 (10:45)
--- NOTE | 2017-02-19 11:58 | HHI.PR ---
Subjective Remarks Patient resting in bed comfortably, he denied acute complaint today, awaiting pathology results to follow with oncologist recommendation Objective Vitals Vital Signs Date Time Temp Pulse Resp B/P Pulse Ox O2 Delivery O2 Flow Rate FiO2 02/19/17 10:00 93 02/19/17 08:00 88 02/19/17 07:32 94 Nasal Cannula 3.00 02/19/17 06:00 95 02/19/17 04:00 92 02/19/17 04:00 98.0 92 23 93/51 96 02/19/17 02:00 88 02/19/17 00:00 97.6 91 22 98/54 94 02/19/17 00:00 91 02/18/17 22:00 98 02/18/17 20:40 94 Nasal Cannula 3.00 02/18/17 20:00 97.6 96 24 96/51 93 02/18/17 20:00 96 02/18/17 16:00 98.3 93 23 99/53 95 02/18/17 12:00 97.9 98 26 98/52 99 I/O 02/18/17 02/18/17 02/18/17 02/19/17 02/19/17 02/19/17 07:00 15:00 23:00 07:00 15:00 23:00 Intake Total 1466 ml 1610 ml 1243 ml 745 ml Output Total 800 ml 700 ml 455 ml 370 ml Balance 666 ml 910 ml 788 ml 375 ml Intake Oral 100 ml 900 ml 600 ml 120 ml IV Total 1366 ml 710 ml 643 ml 625 ml Output Urine Total 700 ml 250 ml 325 ml 300 ml Chest Tube Drainage Total 100 ml 450 ml 130 ml 70 ml # Bowel Movements 0 0 0 Result Diagram: 02/19/17 0347 02/19/17 0329 Objective Remarks GENERAL: Patient is 76 yo lying in bed in [facility]. SKIN: Warm and dry. HEAD: Normocephalic. EYES: No scleral icterus. No injection or drainage. NECK: Supple, trachea midline. No JVD or lymphadenopathy. CARDIOVASCULAR: normal rate, regular rhythm without murmurs, gallops, or rubs. RESPIRATORY: Breath sounds equal bilaterally. No accessory muscle use. GASTROINTESTINAL: Abdomen soft, non-tender, nondistended. MUSCULOSKELETAL: No cyanosis, or edema. Left arm amputated BACK: Nontender without obvious deformity. Neuro: Awake, alert, moves all extremity A/P Assessment and Plan The patient is a 76-year-old who denies any significant past medical history, presented to [facility] ED with respiratory distress. The patient states that he has been short of breath for the past 2 weeks and progressively worsened. He also reports productive cough with brown phlegm, however, he denies any fever, chills or any constitutional symptoms. The patient denies any nausea, vomiting or abdominal pain. He has not seen a physician for several years and is not on any medications at home. The patient has a remote history of tobacco use and used to smoke a pack a day for several years. On arrival to the ED the patient was tachycardic with heart rate of 120s, tachypneic and hypoxic. He was placed on a non-rebreather mask with current saturation of 98-99%. The chest x-ray in the ER showed large left pleural effusion occupying approximately two-third of the left lung field along with pulmonary masses worrisome for metastatic disease. His laboratory data is significant for acute kidney injury with a BUN of 43, creatinine 1.70, hypercalcemia with calcium level 10.5. In addition his WBC was 110.2, associated with bandemia of 22. In the ER he was given Lasix [address] A [address] scan of the chest, abdomen and pelvis was ordered by the ED, in addition interventional radiology was consulted by ER for chest tube placement. 02/16 Patient s/p CT placement by IR yesterday with removal 3L hemorrhagic fluid upon insertion additional 500ml drained overnight. Pleural effusion consistent with exudative picture. Afebrile. 02/17 No acute events overnight. Approximately 300 cc serosanguineous fluid draining from left chest tube. Patient's resting comfortably no dyspnea noted. 02/18: patient denies any complaints. states he ate breakfast this morning. eager to get out of bed to chair today. not very dyspneic on my exam. 500cc bloody drainage from left chest tube. 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 Acute hypoxemic respiratory failure. 2. Large left pleural effusion, s/p CT placement 3. Pulmonary masses, likely secondary to metastatic disease. 4. Acute kidney injury. 5. Hyperglycemia. 6. Hypercalcemia, likely related to malignancy. 7. Leukocytosis. possibly related to leukemoid reaction from lung mets 8 Hx Osteosarcoma with mets Plan Neuro: Monitor neuro status, avoid any sedatives. CT brain : no acute disease Pulm: Continue with oxygen and maintain sats above 92%. Bronchodilators prn Monitor CT drainage- Pulm is following For CT guided lung biopsy of right lung mass Pleural effusions consistent with exudative fluid likely related to malignancy follow up on cytology results pending OOB to chair today. water seal chest tube. AM cxr. CV: Monitor HR and BP and maintain MAP> 65 mmHg. : Monitor renal function, I's and O's and avoid nephrotoxins. Improvement -Cr: From 2.10 21.72, continue IVF 1/2NS@84ml/hr Nephrology following CT abdomen/pelvis: no metastatic disease, b/l renal cysts. Patient s/p Aredia x 1 dose yesterday for hypercalcemia ( Ca 10.5) 9.7 this morning. GI: tolerating diabetic diet, on Protonix 40 mg IV daily for GI prophylaxis. ID: Continue with empiric abx( Zosyn )and monitor for signs of infections( fever and WBC). Check sputum culture & urinalysis with culture if indicated. Heme: Monitor CBC. Oncology is following Endo: SSI with Accu-Chek q. 6-hours for glycemic control. GI prophylaxis with Protonix 40 mg daily and DVT prophylaxis with SCDs. No pharmacological anticoagulation prophylaxis given hemorrhagic effusion Marcel Weinberg MD Feb 19, 2017 11:57 27. Christian Dueñas MD Head CT 02/15/17 0000 Signed Impressions: Service Date/Time: Wednesday, February 15, 2017 11:53 - CONCLUSION: Marked motion artifact. I do not see evidence for a mass. Nick Murphy MD FACR Chest Tube Insertion 02/15/17 0000 Signed Impressions: Service Date/Time: Wednesday, February 15, 2017 13:23 - CONCLUSION: Uncomplicated left chest tube placement as above. 3 L of bloody fluid was removed. Samples to the lab as requested. Metastatic lesions seen throughout the lungs bilaterally. Jermaine Chisholm Jr., MD Chest CT 02/15/17 0000 Signed Impressions: Service Date/Time: Wednesday, February 15, 2017 12:04 - CONCLUSION: Markedly abnormal CT scan of the chest with complete opacification of left hemithorax with consolidative changes about the left lung. Multiple soft tissue masses are seen on the right. Easiest way to obtain diagnosis is biopsy of the large mass anteriorly on the right. This could be biopsies percutaneously. Thoracentesis would be of benefit with tube placement on the left. Nick Murphy MD FACR Abdomen/Pelvis CT 02/15/17 0000 Signed Impressions: Service Date/Time: Wednesday, February 15, 2017 12:04 - CONCLUSION: 1. Large pleural effusion on the left with pleural thickening and parenchymal mass on the right. Lung cancer is suspected. I do not see obvious metastatic disease in the abdomen. 2. Gallstones. Nick Murphy MD FACR Objective Remarks GENERAL: Patient is 76 yo lying in bed in [place]. SKIN: Warm and dry. HEAD: Normocephalic. EYES: No scleral icterus. No injection or drainage. NECK: Supple, trachea midline. No JVD or lymphadenopathy. CARDIOVASCULAR: normal rate, regular rhythm without murmurs, gallops, or rubs. RESPIRATORY: Breath sounds equal bilaterally. No accessory muscle use. GASTROINTESTINAL: Abdomen soft, non-tender, nondistended. MUSCULOSKELETAL: No cyanosis, or edema. Left arm amputated BACK: Nontender without obvious deformity. Neuro: Awake, alert, moves all extremity A/P Assessment and Plan The patient is a 76-year-old who denies any significant past medical history, presented to [facility] ED with respiratory distress. The patient states that he has been short of breath for the past 2 weeks and progressively worsened. He also reports productive cough with brown phlegm, however, he denies any fever, chills or any constitutional symptoms. The patient denies any nausea, vomiting or abdominal pain. He has not seen a physician for several years and is not on any medications at home. The patient has a remote history of tobacco use and used to smoke a pack a day for several years. On arrival to the ED the patient was tachycardic with heart rate of 120s, tachypneic and hypoxic. He was placed on a non-rebreather mask with current saturation of 98-99%. The chest x-ray in the ER showed large left pleural effusion occupying approximately two-third of the left lung field along with pulmonary masses worrisome for metastatic disease. His laboratory data is significant for acute kidney injury with a BUN of 43, creatinine 1.70, hypercalcemia with calcium level 10.5. In addition his WBC was 110.2, associated with bandemia of 22. In the ER he was given Lasix [address] scan of the chest, abdomen and pelvis was ordered by the ED, in addition interventional radiology was consulted by ER for chest tube placement. 02/16 Patient s/p CT placement by IR yesterday with removal 3L hemorrhagic fluid upon insertion additional 500ml drained overnight. Pleural effusion consistent with exudative picture. Afebrile. 02/17 No acute events overnight. Approximately 300 cc serosanguineous fluid draining from left chest tube. Patient's resting comfortably no dyspnea noted. 02/18: patient denies any complaints. states he ate breakfast this morning. eager to get out of bed to chair today. not very dyspneic on my exam. 500cc bloody drainage from left chest tube. 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 Acute hypoxemic respiratory failure. 2. Large left pleural effusion, s/p CT placement 3. Pulmonary masses, likely secondary to metastatic disease. 4. Acute kidney injury. 5. Hyperglycemia. 6. Hypercalcemia, likely related to malignancy. 7. Leukocytosis. possibly related to leukemoid reaction from lung mets 8 Hx Osteosarcoma with mets Plan Neuro: Monitor neuro status, avoid any sedatives. CT brain : no acute disease Pulm: Continue with oxygen and maintain sats above 92%. Bronchodilators prn Monitor CT drainage- Pulm is following For CT guided lung biopsy of right lung mass Pleural effusions consistent with exudative fluid likely related to malignancy follow up on cytology results pending OOB to chair today. water seal chest tube. AM cxr. CV: Monitor HR and BP and maintain MAP> 65 mmHg. : Monitor renal function, I's and O's and avoid nephrotoxins. Improvement -Cr: From 2.10 21.72, continue IVF 1/2NS@84ml/hr Nephrology following CT abdomen/pelvis: no metastatic disease, b/l renal cysts. Patient s/p Aredia x 1 dose yesterday for hypercalcemia ( Ca 10.5) 9.7 this morning. GI: tolerating diabetic diet, on Protonix 40 mg IV daily for GI prophylaxis. ID: Continue with empiric abx( Zosyn )and monitor for signs of infections( fever and WBC). Check sputum culture & urinalysis with culture if indicated. Heme: Monitor CBC. Oncology is following Endo: SSI with Accu-Chek q. 6-hours for glycemic control. GI prophylaxis with Protonix 40 mg daily and DVT prophylaxis with SCDs. No pharmacological anticoagulation prophylaxis given hemorrhagic effusion Marcel Weinberg MD Feb 19, 2017 11:57
--- NOTE | 2017-02-19 13:18 | PD.ONC.PN ---
Subjective Subjective Remarks Afebrile overnight. Patient resting without complaint. Transfer order has been placed by patient relations liaison to move to med/surg floor. Objective Data Date Time Temp Pulse Resp B/P Pulse Ox O2 Delivery O2 Flow Rate FiO2 02/19/17 12:00 90 02/19/17 10:00 93 02/19/17 08:00 88 02/19/17 07:32 94 Nasal Cannula 3.00 02/19/17 06:00 95 02/19/17 04:00 92 02/19/17 04:00 98.0 92 23 93/51 96 02/19/17 02:00 88 02/19/17 00:00 97.6 91 22 98/54 94 02/19/17 00:00 91 02/18/17 22:00 98 02/18/17 20:40 94 Nasal Cannula 3.00 02/18/17 20:00 97.6 96 24 96/51 93 02/18/17 20:00 96 02/18/17 16:00 98.3 93 23 99/53 95 02/19/17 02/19/17 02/19/17 07:00 15:00 23:00 Intake Total 745 ml Output Total 370 ml Balance 375 ml Result Diagram: 02/19/17 0347 02/19/17 0329 Laboratory Results Laboratory Tests Test 02/19/17 02/19/17 03:29 03:47 Sodium Level 139 MEQ/L Potassium Level 3.9 MEQ/L Chloride Level 104 MEQ/L Carbon Dioxide Level 24.2 MEQ/L Anion Gap 11 MEQ/L Blood Urea Nitrogen 46 MG/DL Creatinine 1.46 MG/DL Estimat Glomerular Filtration 47 ML/MIN Rate Random Glucose 141 MG/DL Calcium Level 7.3 MG/DL Protein Corrected Calcium 8.5 MG/DL Total Protein 4.9 GM/DL White Blood Count 138.6 TH/MM3 Red Blood Count 3.14 MIL/MM3 Hemoglobin 8.9 GM/DL Hematocrit 27.9 % Mean Corpuscular Volume 88.8 FL Mean Corpuscular Hemoglobin 28.3 PG Mean Corpuscular Hemoglobin 31.9 % Concent Red Cell Distribution Width 13.2 % Platelet Count 382 TH/MM3 Mean Platelet Volume 8.3 FL Culture Results Microbiology Date/Time Procedure Status Source Growth 02/16/17 15:45 Gram Stain - Final Complete Wound Lung 02/16/17 15:45 Wound Culture - Final Complete Wound Lung NO GROWTH IN 72 HRS.--AEROBICALLY OR ... 02/16/17 15:45 Acid Fast Stain - Final Resulted Wound Lung NO ACID FAST BACILLI SEEN 02/16/17 15:45 Mycobacterial Culture Resulted Wound Lung Pending 02/16/17 15:45 Fungal Smear - Final Resulted Wound Lung NO FUNGAL ELEMENTS SEEN. 02/16/17 15:45 Fungal Culture Resulted Wound Lung Pending 02/17/17 11:00 Urine Culture - Final Complete Urine Random Urine NO GROWTH IN 48 HOURS. Imaging Studies Last 24 hours Impressions Chest X-Ray 02/19/17 0600 Signed Impressions: Service Date/Time: Sunday, February 19, 2017 04:24 - CONCLUSION: Stable chest x-ray with bilateral pulmonary masses and suspected consolidation. Brian Olivas MD Administered Medications Medications (Trade) Dose Ordered Sig/Debbie Route PRN Reason Start Time Stop Time Status Last Admin Dose Admin Pantoprazole Sodium (Protonix Inj) 40 mg DAILY IV 02/15/17 11:30 02/19/17 08:32 Chlorhexidine Gluconate (Chlorhexidine 2% Cloth) 3 pack Taper DAILY@04 TOP 02/16/17 04:00 02/12/18 03:59 02/19/17 04:00 Insulin Human Regular 1 1 Q6H SQ 02/15/17 11:30 02/19/17 11:30 Piperacillin Sod/ Tazobactam Sod 50 ml @ 100 mls/hr Q8H IV 02/16/17 13:00 02/19/17 05:35 Sodium Chloride (1/2 NS 1000 ml Inj) 1,000 ml @ 84 mls/hr [id number] IV 02/16/17 12:00 02/18/17 23:24 Senna/Docusate Sodium (Ginna-Colace) 1 tab BID PO 02/17/17 21:00 02/19/17 08:32 Cholecalciferol (Vitamin D3) 2,000 units DAILY PO 02/18/17 09:00 02/19/17 08:32 Objective Remarks GENERAL: Elderly male, lying in bed in nad. SKIN: Warm and dry. HEAD: Normocephalic. EYES: No scleral icterus. No injection or drainage. NECK: Supple, trachea midline. CARDIOVASCULAR: +S1/S2 RESPIRATORY: anterior mckinney with scattered rhonchi. CT, left chest wall with serosanguineous drainage. GASTROINTESTINAL: Abdomen soft, non-tender, nondistended. EXTREMITIES: No cyanosis MUSCULOSKELETAL: Adequate muscle tone. NEUROLOGICAL: awake and alert, normal speech. 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 will place port today and start chemotherapy tomorrow. History November 2015: presented to ED at [facility]. Dr. Portillo ordered MRI, showed soft tissue mass, referred to Dr. Tesfaye at [facility] February 2016: frozen section of mass showed high-grade sarcoma. below amputation of left hand performed January 2017: presented to ED with dyspnea. CT chest showed pulmonary masses and pleural effusion. CT ab/pelvis: no mets (2) Pleural effusion on left Status: Acute Plan: --s/p thoracentesis and chest tube placement. --cytology shows sarcoma. --pulmonology following. may need pleurodesis (3) Leukocytosis Status: Acute Plan: -- Leukocytosis with neutrophilia and bandemia and no peripheral blasts. --most likely reactive process such as leukemoid reaction from lung mets and sepsis or this could be from myeloproliferative disorder. --no peripheral blast. --BCR-ABL by FISH and AARON-2 mutation for evaluation of myeloproliferative disorder pending--I called and spoke with [facility] labs, these will likely result sometime next week, as of 02/19 they are still pending. (4) Hypercalcemia Status: Resolved Plan: --IVF -- s/p Aredia x 1 dose. Assessment 76y/o male admitted to [facility] with respiratory insufficiency. Oncology consulted for evaluation of leukocytosis and bilateral pulmonary masses. 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 Sister Ashley is a registered nurse. She lives in [facility]. Her telephone number is [phone]. Attending Statement no new c/o still has CT Path = High grade sarcoma d/w pt regarding hospice vs palliative chemo. He wants to do chemo. Consult IR for port chemo teach and consent Gemzar and Taxotere.( I do not think pt will tolerate Adriamycin based chemo ) Start chemo tomorrow. Pleurodesis when PL fluid <[address] Wilks to follow. The exam, history, and the medical decision-making described in the above note were completed with the assistance of the mid-level provider. I reviewed and agree with the findings presented. I attest that I had a [id number] encounter with the patient on the same day, and personally performed and documented my assessment and findings in the medical record. Morenita Farooq Feb 19, 2017 13:18 Deven Schneider MD Feb 20, 2017 22:46
--- NOTE | 2017-02-19 15:28 | HHI.NPPN ---
Subjective History of Present Illness The patient is a 76 yo [place] male who presented to the ED on 02/15 with complaints of progressively worsening SOB x2 weeks. He is a very poor historian, so much of information is obtained through previous medical records. 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 This was all performed at [facility] in [employer] , so further information is not available at the present. Uncertain if he had to have chemo or radiation, nor if he has been following locally with any physicians. On admission, it was noted that he had a severe L pleural effusion and subsequently had to have L chest tube placed. Imaging suspicious for metastatic disease. Initial drainage from CT was 3L. He has had aboout 500mL overnight. We were consulted for ISSAC. There are no other admission or labs to review to see where the patient's baseline renal functions actually are. Uncertain what medication if any are taken at home His admitting SCr was 1.70 that worsened to 2.10 at consult Ca was elevated at 10.5 and was given Aredia by oncology Interval History Pt says he is fine. Starting chemo likely tomorrow. Appetite not great (Rachel Blue) Review of Systems General Constitutional: Fatigue (Rachel Blue) Objective Data Data 02/18/17 02/19/17 19:00 07:00 Intake Total 1610 ml 1988 ml Output Total 700 ml 825 ml Balance 910 ml 1163 ml Intake Oral 900 ml 720 ml IV Total 710 ml 1268 ml Output Urine Total 250 ml 625 ml Chest Tube Drainage Total 450 ml 200 ml # Bowel Movements 0 0 Vital Signs Date Time Temp Pulse Resp B/P Pulse Ox O2 Delivery O2 Flow Rate FiO2 02/19/17 14:00 85 02/19/17 12:00 90 02/19/17 10:00 93 02/19/17 08:00 88 02/19/17 07:32 94 Nasal Cannula 3.00 02/19/17 06:00 95 02/19/17 04:00 92 02/19/17 04:00 98.0 92 23 93/51 96 02/19/17 02:00 88 02/19/17 00:00 97.6 91 22 98/54 94 02/19/17 00:00 91 02/18/17 22:00 98 02/18/17 20:40 94 Nasal Cannula 3.00 02/18/17 20:00 97.6 96 24 96/51 93 02/18/17 20:00 96 02/18/17 16:00 98.3 93 23 99/53 95 (Rachel Blue) -: 02/19/17 0347 02/19/17 0329 Medication Review Current Medications Medications (Trade) Dose Ordered Sig/Debbie Route Start Time Stop Time Status Last Admin (NS Flush) 2 ml UNSCH PRN IVF 02/15/17 08:15 (Protonix Inj) 40 mg DAILY IV 02/15/17 11:30 02/19/17 08:32 Miscellaneous Information 1 Q361D XX 02/15/17 11:30 (Chlorhexidine 2% Cloth) 3 pack Taper DAILY@04 TOP 02/16/17 04:00 02/12/18 03:59 02/19/17 04:00 (Chlorhexidine 2% Cloth) 3 pack UNSCH PRN TOP 02/15/17 11:30 (D50w (Vial) Inj) 25 ml UNSCH PRN IV PUSH 02/15/17 11:30 (Glucagon Inj) 1 mg UNSCH PRN OTHER 02/15/17 11:30 Insulin Human Regular 1 1 Q6H SQ 02/15/17 11:30 02/19/17 11:30 Piperacillin Sod/ Tazobactam Sod 50 ml @ 100 mls/hr Q8H IV 02/16/17 13:00 02/19/17 13:59 (1/2 NS 1000 ml Inj) 1,000 ml @ 84 mls/hr [id number] IV 02/16/17 12:00 02/18/17 23:24 (Ginna-Colace) 1 tab BID PO 02/17/17 21:00 02/19/17 08:32 (Vitamin D3) 2,000 units DAILY PO 02/18/17 09:00 02/19/17 08:32 (Rachel Blue) Physical Exam General Appearance: No Acute Distress, Comfortable, Malnourished (Rachel Blue) Neck Neck Exam: Neck Supple, Trachea Midline (Rachel Blue) Pulmonary Resp Exam: Clear Bilaterally, Breath Sounds Equal, No Distress (Rachel Blue) Cardiology CV Exam: Regular, Normal Sinus Rhythm (Rachel Blue) Gastrointestinal/Abdomen GI Exam: Soft, Non-Tender (Rachel Blue) Integumentary Skin Exam: Clear, Warm, Dry (Rachel Blue) Extremeties Extremities Exam: No Edema (Rachel Blue) Assessment/Plan Problem List: (1) Renal insufficiency Plan: SCr improving daily with IVF Poor po intake. Will increase IVF to 100mL/hr. Add K-Phos po Seems to be stablizing--this may be his baseline. Medications should be adjusted for the patient's renal insufficiency. Avoid nephrotoxic medications such as iodinated contrast dyes and NSAIDs. Avoid gadolinium when eGFR <30. (2) Lung mass Plan: Metastatic CA confirmed. Chemo to be started as per heme/onco (3) Leukocytosis Plan: Mgmt as per oncology (4) Hypercalcemia Plan: Resolved with Aredia. (Rachel Blue) Plan The exam, history, and the medical decision-making described in the above note were completed with the assistance of the MOE. I reviewed and agree with the findings presented. (Sondra Davison MD) Rachel Blue Feb 19, 2017 15:28 Sondra Davison MD Mar 16, 2017 10:44
[2017-02-19] MEDS ORDERED: LIDOCAINE 1%/EPINEPHrine 1:100,000 SOLN 20 ML VIAL ONE (16:00)
[2017-02-19] MEDS ORDERED: MIDAZOLAM HCL 5 MG/5 ML VIAL ONE (16:01)
[2017-02-19] MEDS ORDERED: fentaNYL CITRATE 250 MCG/5 ML AMP ONE (16:02)
--- NOTE | 2017-02-19 16:23 | HHI.HCPN ---
Patient was off the floor for procedure. Transfer order placed by stock and station agent to move patient to floor. Pathology showing high grade sarcoma. Plan for possible port placement and initiation chemotherapy in upcoming days. Patient's overall prognosis is quite poor. He is a candidate for palliative chemotherapy if he chooses, but he does not have anyone here to assist him. Patient is intermittently confused, uncertain if he is capacitated to make decisions related to his medical treatment goals independently. Discussed with Nuvia HE, Will consult psychiatry for capacity. Patient previously stated he would like to get back to [place] where he is from and his family still lives. Phone call placed to patient's sister/HCS, Ashley, to provide an update on patient's clinical condition and discuss medical treatment goals. We discussed aggressive vs. comfort focused care and the logistics of patient traveling to [facility]. Patient is clearly hospice appropriate if his goals are also hospice appropriate. Ashley would like to discuss treatment options with the patient and the rest of the family over the weekend. Palliative care will follow up with patient and family on Wednesday. . Charmaine Nam Feb 19, 2017 16:23
[2017-02-19 16:46] LABS: ALBUMIN SPE 3.06 GM/DL (3.50-5.00)
--- NOTE | 2017-02-19 18:01 | PD.RAD ---
Post Procedure Progress Note Pre Procedure Diagnosis: (1) Lung mass (2) History of sarcoma of soft tissue Post Procedure Diagnosis: (1) History of sarcoma of soft tissue (2) Lung mass Procedure Date: Feb 19, 2017 Supervising Radiologist: Dago Hines Anesthesia: Local, Analgesia, Conscious Sedation Plan of Activity Patient to Unit: ROPU Patient Condition: Good See PACS Report for procedural detail/treatment Central Venous Access Device Procedure 1 Right Internal Jugular Infusaport Placement single lumen Bulgarian: 8 Dago Hines MD Feb 19, 2017 18:01
[2017-02-19] MEDS: SODIUM CHLOR 0.45% 1000 ML INJ 1,000 ML IV SCH (18:40)
--- NOTE | 2017-02-19 18:44 | RADRPT ---
EXAM DATE/TIME: 02/19/2017 16:00 [place] COMPARISON: No previous studies available for comparison. INDICATIONS : Lung mass. Chemotherapy needed. MEDICAL HISTORY : 1. Left plueral effusion 2. SOB 3. lung mass 4.sarcoma SURGICAL HISTORY : 1. Thoracentesis 2. Left pnuemothorax with chest tube 3. lt hand amputation ENCOUNTER: Initial ACUITY: 1 week PAIN SCORE: 0/10 FLUORO TIME: 0.4 minutes IMAGE SERIES: 1 SEDATION TIME: 30 minutes ACCESS: Right internal jugular vein SEDATION: 1.) 3 mg midazolam (Versed) IV 2.) 150 mcg fentanyl (Sublimaze) IV Prophylactic antibiotics were administered with appropriate pre-procedure timing. Vancomycin within 2 hours of procedure, Ancef (or alternative) within 1 hour of procedure. DEVICE: 1. 8 Zimbabwean single lumen Bard Power Port PROCEDURE : 1. Continuous pulse oximetry and EKG monitoring. 2. Intravenous conscious sedation. 3. Ultrasound guidance for venous access. 4. Fluoroscopic guided implantable central venous port placement. The patient was placed supine. The neck was prepped in sterile fashion. Full sterile technique was u sed, including cap, mask, sterile gloves and gown, and a large sterile sheet. Hand hygiene and 2% ch lorhexidine Betadine was utilized per protocol for cutaneous antisepsis with appropriate dry time for site. The skin and subcutaneous tissues were infiltrated with local anesthetic solution. Under direct ultrasound guidance, central venous access was accomplished in the targeted vessel. The ultrasound images depicting access guidance were stored and saved to PACS for permanent record. A s ubcutaneous pocket was created using blunt dissection. The port was introduced to the pocket. The c atheter tubing was fed through a subcutaneous tunnel to the venotomy site. The catheter tubing was c ut to a suitable length and then was introduced through a valved Peel-Away sheath and positioned with catheter tubing tip at the cavo-atrial junction level. The pocket incision was closed with subcutic ular Vicryl suture. Steri-Strips were applied. The port was flushed and locked with heparin solutio n per protocol. Sterile dressing was applied to the site. The patient tolerated the procedure well. Conscious sedation was performed with the prescribed dosages and duration as above in the presence of an independent trained radiology nurse to assist in the monitoring of the patient. EKG and oximetry remained stable throughout the procedure. The patient tolerated the procedure well and there were no complications. The patient was sent to post anesthesia recovery in stable condition. CONCLUSION: Uncomplicated ultrasound and fluoroscopic guided implanted central venous port catheter placement as described in detail above. An 8 Zimbabwean Power port was placed. Dago Hines MD on February 19, 2017 at 18:42 Board Certified Radiologist. This report was verified electronically.
--- NOTE | 2017-02-19 19:14 | HHI.PR ---
Subjective Remarks Chest tube in place needle lung biopsy done no distress on O2 Path: SARCOMA Objective Vital Signs Date Time Temp Pulse Resp B/P Pulse Ox O2 Delivery O2 Flow Rate FiO2 02/19/17 17:30 96 18 93/43 94 02/19/17 17:00 94 18 92/49 95 02/19/17 16:45 96.9 96 18 100/49 92 02/19/17 16:00 97.9 96 19 90/57 94 02/19/17 16:00 93 02/19/17 14:00 85 02/19/17 12:00 90 02/19/17 12:00 98.6 85 18 85/54 95 02/19/17 10:00 93 02/19/17 08:00 88 02/19/17 08:00 98.3 90 20 97/60 96 02/19/17 07:32 94 Nasal Cannula 3.00 02/19/17 06:00 95 02/19/17 04:00 92 02/19/17 04:00 98.0 92 23 93/51 96 02/19/17 02:00 88 02/19/17 00:00 97.6 91 22 98/54 94 02/19/17 00:00 91 02/18/17 22:00 98 02/18/17 20:40 94 Nasal Cannula 3.00 02/18/17 20:00 97.6 96 24 96/51 93 02/18/17 20:00 96 I/O 02/18/17 02/18/17 02/18/17 02/19/17 02/19/17 02/19/17 06:59 14:59 22:59 06:59 14:59 22:59 Intake Total 1466 ml 1610 ml 1243 ml 745 ml 857 ml Output Total 800 ml 700 ml 455 ml 370 ml 1500 ml Balance 666 ml 910 ml 788 ml 375 ml -643 ml Intake Oral 100 ml 900 ml 600 ml 120 ml IV Total 1366 ml 710 ml 643 ml 625 ml 857 ml Output Urine Total 700 ml 250 ml 325 ml 300 ml 400 ml Chest Tube Drainage Total 100 ml 450 ml 130 ml 70 ml 1100 ml # Bowel Movements 0 0 0 Result Diagram: 02/19/17 0347 02/19/17 0321 Objective Remarks GENERAL: SKIN: Warm and dry. HEAD: Atraumatic. Normocephalic. EYES: Pupils equal and round. No scleral icterus. No injection or drainage. ENT: No nasal bleeding or discharge. Mucous membranes pink and moist. NECK: Trachea midline. No JVD. CARDIOVASCULAR: Regular rate and rhythm. RESPIRATORY: No accessory muscle use. Clear to auscultation. Breath sounds equal bilaterally. GASTROINTESTINAL: Abdomen soft, non-tender, nondistended. Hepatic and splenic margins not palpable. MUSCULOSKELETAL: Extremities without clubbing, cyanosis, or edema. No obvious deformities. NEUROLOGICAL: Awake and alert. No obvious cranial nerve deficits. Motor grossly within normal limits. Five out of 5 muscle strength in the arms and legs. Normal speech. PSYCHIATRIC: Appropriate mood and affect; insight and judgment normal. Assessment and Plan Assessment and Plan RESPIRATORY FAILURE LUNG MASSES ? METASTATIC SARCOMA PLEURAL EFFUSION , MALIGNANT PLAN Pleurodesis before removing CT O2 NEEDED ANTIBIOTICS FOLLOW WBC COUNT Discussed Condition With GENERAL: SKIN: Warm and dry. HEAD: Atraumatic. Normocephalic. EYES: Pupils equal and round. No scleral icterus. No injection or drainage. ENT: No nasal bleeding or discharge. Mucous membranes pink and moist. NECK: Trachea midline. No JVD. CARDIOVASCULAR: Regular rate and rhythm. RESPIRATORY: No accessory muscle use. Clear to auscultation. Breath sounds equal bilaterally. GASTROINTESTINAL: Abdomen soft, non-tender, nondistended. Hepatic and splenic margins not palpable. MUSCULOSKELETAL: Extremities without clubbing, cyanosis, or edema. No obvious deformities. NEUROLOGICAL: Awake and alert. No obvious cranial nerve deficits. Motor grossly within normal limits. Five out of 5 muscle strength in the arms and legs. Normal speech. PSYCHIATRIC: Appropriate mood and affect; insight and judgment normal. Jerson Arthur MD Feb 19, 2017 19:13
[2017-02-19] MEDS ORDERED: POTASSIUM PHOSPHATE/SODIUM PHOSPHATE 250 MG TAB PO SCH (22:00)
[2017-02-19] MEDS: POTASSIUM PHOSPHATE/SODIUM PHOSPHATE 250 MG TAB PO SCH (22:31)
[2017-02-20] VITALS: BP 98/51; PULSE 95; RESP 18; TEMP 96; O2SAT 93
[2017-02-20 04:00] VITALS: BP 90/54; PULSE 92; RESP 18; TEMP 97.8; O2SAT 92
[2017-02-20] MEDS: CHLORHEXIDINE GLUCONATE 2 % 1 PACK (2 CLOTHS) TOP SCH (04:00)
[2017-02-20] MEDS: PIPERACIL-TAZO 3.375 GM PREMIX 50 ML IV SCH ×3 (04:25→21:41)
[2017-02-20] MEDS: INSULIN NovoLIN REGULAR SUPPLEMENTAL SCALE SQ SCH ×4 (04:42→22:49)
[2017-02-20 05:16] LABS: HEMATOCRIT 23.2 % (39.0-51.0); MEAN CELL VOLUME 88.7 FL (80.0-100.0); MEAN CORPUSCULAR HEMOGLOBIN 29.4 PG (27.0-34.0); MEAN CORPUSCULAR HGB CONC 33.1 % (32.0-36.0); PLATELET COUNT 345 TH/MM3 (150-450); RED BLOOD COUNT 2.61 MIL/MM3 (4.50-5.90); WHITE BLOOD COUNT 154.2 TH/MM3 (4.0-11.0)
[2017-02-20 05:22] LABS: REVIEW FLAG FINAL
[2017-02-20 05:40] LABS: BICARBONATE 22.1 MEQ/L (21.0-32.0)
[2017-02-20 06:03] LABS: CALCIUM-PROTEIN CORRECTED 8.5 MG/DL (8.5-10.1)
[2017-02-20 08:00] VITALS: BP 100/56; PULSE 95; RESP 18; TEMP 96.6; O2SAT 93
[2017-02-20] MEDS: CHOLECALCIFEROL (VIT D3) 1000 UNIT TAB PO SCH (08:19)
[2017-02-20] MEDS: DOCUSATE SODIUM 50 MG/SENNA 8.6 MG TAB PO SCH ×2 (08:19→21:41)
[2017-02-20] MEDS: POTASSIUM PHOSPHATE/SODIUM PHOSPHATE 250 MG TAB PO SCH ×2 (08:19→21:41)
[2017-02-20] MEDS: SODIUM CHLOR 0.45% 1000 ML INJ 1,000 ML IV SCH ×2 (08:20→21:41)
[2017-02-20] MEDS: PANTOPRAZOLE SODIUM 40 MG VIAL IV SCH (08:20)
--- NOTE | 2017-02-20 10:10 | PD.ONC.PN ---
Subjective Subjective Remarks Afebrile overnight. Patient transferred to [facility] yesterday. Resting comfortably. 3650cc drainage/24hours Objective Data Date Time Temp Pulse Resp B/P Pulse Ox O2 Delivery O2 Flow Rate FiO2 02/20/17 08:00 96.6 95 18 100/56 93 02/20/17 04:00 97.8 92 18 90/54 92 02/20/17 00:00 96.0 95 18 98/51 93 02/19/17 20:00 96.8 95 19 101/50 92 02/19/17 18:45 96.3 98 22 100/55 95 02/19/17 17:30 96 18 93/43 94 02/19/17 17:00 94 18 92/49 95 02/19/17 16:45 96.9 96 18 100/49 92 02/19/17 16:00 97.9 96 19 90/57 94 02/19/17 16:00 93 02/19/17 14:00 85 02/19/17 12:00 90 02/19/17 12:00 98.6 85 18 85/54 95 Result Diagram: 02/20/17 0435 02/20/17 0435 Laboratory Results Laboratory Tests Test 02/20/17 04:35 White Blood Count 154.2 TH/MM3 Red Blood Count 2.61 MIL/MM3 Hemoglobin 7.7 GM/DL Hematocrit 23.2 % Mean Corpuscular Volume 88.7 FL Mean Corpuscular Hemoglobin 29.4 PG Mean Corpuscular Hemoglobin 33.1 % Concent Red Cell Distribution Width 13.0 % Platelet Count 345 TH/MM3 Mean Platelet Volume 8.5 FL Sodium Level 140 MEQ/L Potassium Level 4.0 MEQ/L Chloride Level 108 MEQ/L Carbon Dioxide Level 22.1 MEQ/L Anion Gap 10 MEQ/L Blood Urea Nitrogen 39 MG/DL Creatinine 1.28 MG/DL Estimat Glomerular Filtration 55 ML/MIN Rate Random Glucose 109 MG/DL Calcium Level 7.1 MG/DL Protein Corrected Calcium 8.5 MG/DL Total Protein 4.5 GM/DL Culture Results Microbiology Date/Time Procedure Status Source Growth 02/17/17 11:00 Urine Culture - Final Complete Urine Random Urine NO GROWTH IN 48 HOURS. Administered Medications Medications (Trade) Dose Ordered Sig/Debbie Route PRN Reason Start Time Stop Time Status Last Admin Dose Admin Pantoprazole Sodium (Protonix Inj) 40 mg DAILY IV 02/15/17 11:30 02/20/17 08:20 Chlorhexidine Gluconate (Chlorhexidine 2% Cloth) 3 pack Taper DAILY@04 TOP 02/16/17 04:00 02/12/18 03:59 02/20/17 04:00 Insulin Human Regular 1 1 Q6H SQ 02/15/17 11:30 02/19/17 11:30 Piperacillin Sod/ Tazobactam Sod 50 ml @ 100 mls/hr Q8H IV 02/16/17 13:00 02/20/17 04:25 Sodium Chloride (1/2 NS 1000 ml Inj) 1,000 ml @ 100 mls/hr Q10H IV 02/16/17 12:00 02/20/17 08:20 Senna/Docusate Sodium (Ginna-Colace) 1 tab BID PO 02/17/17 21:00 02/20/17 08:19 Cholecalciferol (Vitamin D3) 2,000 units DAILY PO 02/18/17 09:00 02/20/17 08:19 Potassium Phos/ Sodium Phos (K-Phos Neutral) 250 mg Q12H PO 02/19/17 22:00 02/20/17 08:19 Objective Remarks GENERAL: Elderly male, supine in bed in nad SKIN: Warm and dry. HEAD: Normocephalic. EYES: No scleral icterus. No injection or drainage. NECK: Supple, trachea midline. CARDIOVASCULAR: +S1/S2 RESPIRATORY: anterior mckinney with scattered rhonchi. CT in place, left chest wall GASTROINTESTINAL: Abdomen soft, non-tender, nondistended. EXTREMITIES: No cyanosis MUSCULOSKELETAL: Adequate muscle tone. NEUROLOGICAL: awake and alert, normal speech. Assessment/Plan Problem List: (1) History of sarcoma of soft tissue Status: Acute Plan: 02/20/17: d/w palliative care yesterday. will await psychiatry evaluation for competency to make decisions before proceeding with chemotherapy. also patient is going to speak with his sister--they are deciding whether to start treatment in [place] where she lives or here in [place]. 02/19/17: pathology shows high grade sarcoma. port placed. History November 2015: presented to ED at [facility] Dr. Portillo ordered MRI, showed soft tissue mass, referred to Dr. Tesfaye at [facility] February 2016: frozen section of mass showed high-grade sarcoma. below amputation of left hand performed January 2017: presented to ED with dyspnea. CT chest showed pulmonary masses and pleural effusion. CT ab/pelvis: no mets (2) Pleural effusion on left Status: Acute Plan: --s/p thoracentesis and chest tube placement. --cytology shows sarcoma. --pulmonology following. may need pleurodesis (3) Leukocytosis Status: Acute Plan: -- Leukocytosis with neutrophilia and bandemia and no peripheral blasts. --most likely reactive process such as leukemoid reaction from lung mets and sepsis or this could be from myeloproliferative disorder. --no peripheral blast. --BCR-ABL by FISH and AARON-2 mutation for evaluation of myeloproliferative disorder pending--I called and spoke with I labs, these will likely result sometime next week, as of 02/19 they are still pending. (4) Hypercalcemia Status: Resolved Plan: --IVF -- s/p Aredia x 1 dose. Assessment 76y/o male admitted to [facility] with respiratory insufficiency. Oncology consulted for evaluation of leukocytosis and bilateral pulmonary masses. 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 Sister Ashley is a registered nurse. She lives in [facility]. Her telephone number is [phone]. Attending Statement The exam, history, and the medical decision-making described in the above note were completed with the assistance of the mid-level provider. I reviewed and agree with the findings presented. I attest that I had a [id number] encounter with the patient on the same day, and personally performed and documented my assessment and findings in the medical record. Pt is alert oriented x3, but very weak. No significant CP/SOB. Reviewed CT, path and labs. Path +metastatic sarcoma. Prognosis is very poor. WBC still trending up , +bandemia with toxic granulation. Remains afebrile and culture negative. Will consult ID for another opinion. Consult psychiatry for competency evaluation. Pt's sister will talk to pt regarding his wish of further care. Morenita Farooq Feb 20, 2017 10:10 Hilton Lester MD Feb 20, 2017 11:55
[2017-02-20 12:00] VITALS: BP 98/56; PULSE 102; RESP 18; TEMP 96.4; O2SAT 94
--- NOTE | 2017-02-20 14:07 | HHI.PR ---
Subjective Remarks Patient resting in that did not complain, or fever or pain He suggested Talk to his sister to decide on whether to initiate palliative chemotherapy whether [place] or [place] Objective Vitals Vital Signs Date Time Temp Pulse Resp B/P Pulse Ox O2 Delivery O2 Flow Rate FiO2 02/20/17 12:00 96.4 102 18 98/56 94 02/20/17 08:00 96.6 95 18 100/56 93 02/20/17 04:00 97.8 92 18 90/54 92 02/20/17 00:00 96.0 95 18 98/51 93 02/19/17 20:00 96.8 95 19 101/50 92 02/19/17 18:45 96.3 98 22 100/55 95 02/19/17 17:30 96 18 93/43 94 02/19/17 17:00 94 18 92/49 95 02/19/17 16:45 96.9 96 18 100/49 92 02/19/17 16:00 97.9 96 19 90/57 94 02/19/17 16:00 93 I/O 02/19/17 02/19/17 02/19/17 02/20/17 02/20/17 02/20/17 07:00 15:00 23:00 07:00 15:00 23:00 Intake Total 745 ml 857 ml 835 ml 971 ml Output Total 370 ml 1500 ml 2000 ml 550 ml Balance 375 ml -643 ml -1165 ml 421 ml Intake Oral 120 ml 480 ml IV Total 625 ml 857 ml 835 ml 491 ml Output Urine Total 300 ml 400 ml Chest Tube Drainage Total 70 ml 1100 ml 2000 ml 550 ml # Bowel Movements 0 Result Diagram: 02/20/17 0435 02/20/17 0435 Objective Remarks GENERAL: Patient is 76 yo lying in bed in [facility]. SKIN: Warm and dry. HEAD: Normocephalic. EYES: No scleral icterus. No injection or drainage. NECK: Supple, trachea midline. No JVD or lymphadenopathy. CARDIOVASCULAR: normal rate, regular rhythm without murmurs, gallops, or rubs. RESPIRATORY: Breath sounds equal bilaterally. No accessory muscle use. GASTROINTESTINAL: Abdomen soft, non-tender, nondistended. MUSCULOSKELETAL: No cyanosis, or edema. Left arm amputated BACK: Nontender without obvious deformity. Neuro: Awake, alert, moves all extremity A/P Assessment and Plan The patient is a 76-year-old who denies any significant past medical history, presented to [facility] ED with respiratory distress. The patient states that he has been short of breath for the past 2 weeks and progressively worsened. He also reports productive cough with brown phlegm, however, he denies any fever, chills or any constitutional symptoms. The patient denies any nausea, vomiting or abdominal pain. He has not seen a physician for several years and is not on any medications at home. The patient has a remote history of tobacco use and used to smoke a pack a day for several years. On arrival to the ED the patient was tachycardic with heart rate of 120s, tachypneic and hypoxic. He was placed on a non-rebreather mask with current saturation of 98-99%. The chest x-ray in the ER showed large left pleural effusion occupying approximately two-third of the left lung field along with pulmonary masses worrisome for metastatic disease. His laboratory data is significant for acute kidney injury with a BUN of 43, creatinine 1.70, hypercalcemia with calcium level 10.5. In addition his WBC was 110.2, associated with bandemia of 22. In the ER he was given Lasix 60 mg IV push. A CT scan of the chest, abdomen and pelvis was ordered by the ED, in addition interventional radiology was consulted by ER for chest tube placement. 02/16 Patient s/p CT placement by IR yesterday with removal 3L hemorrhagic fluid upon insertion additional 500ml drained overnight. Pleural effusion consistent with exudative picture. Afebrile. 02/17 No acute events overnight. Approximately 300 cc serosanguineous fluid draining from left chest tube. Patient's resting comfortably no dyspnea noted. 02/18: patient denies any complaints. states he ate breakfast this morning. eager to get out of bed to chair today. not very dyspneic on my exam. 500cc bloody drainage from left chest tube. 02/19: Pathology came back positive for high grade malignancy, will follow with oncologist recommendation along with palliative care 02/20: port inserted , hematology to start palliative chemotherapy, patient to decide on that when his sister whether she initiated in [place] or, psych consult placed to assess competency A/P: 1. Acute hypoxemic respiratory failure. 2. Large left pleural effusion, s/p CT placement 3. Pulmonary masses, likely secondary to metastatic disease. 4. Acute kidney injury. 5. Hyperglycemia. 6. Hypercalcemia, likely related to malignancy. 7. Leukocytosis. possibly related to leukemoid reaction from lung mets 8 Hx Osteosarcoma with mets Plan Neuro: Monitor neuro status, avoid any sedatives. CT brain : no acute disease Pulm: Continue with oxygen and maintain sats above 92%. Bronchodilators prn Monitor CT drainage- Pulm is following For CT guided lung biopsy of right lung mass Pleural effusions consistent with exudative fluid likely related to malignancy follow up on cytology results pending OOB to chair today. water seal chest tube. AM cxr. CV: Monitor HR and BP and maintain MAP> 65 mmHg. : Monitor renal function, I's and O's and avoid nephrotoxins. Improvement -Cr: From 2.10 21.72, continue IVF 1/2NS@84ml/hr Nephrology following CT abdomen/pelvis: no metastatic disease, b/l renal cysts. Patient s/p Aredia x 1 dose yesterday for hypercalcemia ( Ca 10.5) 9.7 this morning. GI: tolerating diabetic diet, on Protonix 40 mg IV daily for GI prophylaxis. ID: Continue with empiric abx( Zosyn )and monitor for signs of infections( fever and WBC). Check sputum culture & urinalysis with culture if indicated. Heme: Monitor CBC. Oncology is following Endo: SSI with Accu-Chek q. 6-hours for glycemic control. GI prophylaxis with Protonix 40 mg daily and DVT prophylaxis with SCDs. No pharmacological anticoagulation prophylaxis given hemorrhagic effusion Marcel Weinberg MD Feb 20, 2017 14:07
--- NOTE | 2017-02-20 15:58 | HHI.NPPN ---
Subjective History of Present Illness The patient is a 76 yo [place] male who presented to the ED on 02/15 with complaints of progressively worsening SOB x2 weeks. He is a very poor historian, so much of information is obtained through previous medical records. 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 This was all performed at [facility] in [place] , so further information is not available at the present. Uncertain if he had to have chemo or radiation, nor if he has been following locally with any physicians. On admission, it was noted that he had a severe L pleural effusion and subsequently had to have L chest tube placed. Imaging suspicious for metastatic disease. Initial drainage from CT was 3L. He has had aboout 500mL overnight. We were consulted for ISSAC. There are no other admission or labs to review to see where the patient's baseline renal functions actually are. Uncertain what medication if any are taken at home His admitting SCr was 1.70 that worsened to 2.10 at consult Ca was elevated at 10.5 and was given Aredia by oncology Interval History Patient had no verbal complaints. Objective Data Data 02/19/17 02/20/17 19:00 07:00 Intake Total 857 ml 1806 ml Output Total 1500 ml 2550 ml Balance -643 ml -744 ml Intake Oral 480 ml IV Total 857 ml 1326 ml Output Urine Total 400 ml Chest Tube Drainage Total 1100 ml 2550 ml Vital Signs Date Time Temp Pulse Resp B/P Pulse Ox O2 Delivery O2 Flow Rate FiO2 02/20/17 12:00 96.4 102 18 98/56 94 02/20/17 08:00 96.6 95 18 100/56 93 02/20/17 04:00 97.8 92 18 90/54 92 02/20/17 00:00 96.0 95 18 98/51 93 02/19/17 20:00 96.8 95 19 101/50 92 02/19/17 18:45 96.3 98 22 100/55 95 02/19/17 17:30 96 18 93/43 94 02/19/17 17:00 94 18 92/49 95 02/19/17 16:45 96.9 96 18 100/49 92 02/19/17 16:00 97.9 96 19 90/57 94 02/19/17 16:00 93 -: 02/20/17 0435 02/20/17 0435 Physical Exam General Appearance: No Acute Distress, Comfortable, Malnourished Neck Neck Exam: Neck Supple, Trachea Midline Pulmonary Resp Exam: Clear Bilaterally, Breath Sounds Equal, No Distress Cardiology CV Exam: Regular, Normal Sinus Rhythm Gastrointestinal/Abdomen GI Exam: Soft, Non-Tender Integumentary Skin Exam: Clear, Warm, Dry Extremeties Extremities Exam: No Edema Neurologic Neuro Exam: Awake Assessment/Plan Problem List: (1) Renal insufficiency Plan: Serum creatinine level now within normal range. Advise continuing maintenance fluids and discontinuing once oral intake is adequate. At this point in time I will sign off as nothing further to add. Please recall if needed. Medications should be adjusted for the patient's renal insufficiency. Avoid nephrotoxic medications such as iodinated contrast dyes and NSAIDs. Avoid gadolinium when eGFR <30. (2) Lung mass Plan: Metastatic CA confirmed. Chemo to be started as per heme/onco (3) Leukocytosis Plan: Mgmt as per oncology (4) Hypercalcemia Plan: Resolved with Aredia. Sondra aDvison MD Feb 20, 2017 15:58
[2017-02-20 16:00] VITALS: BP 118/57; PULSE 99; RESP 20; TEMP 96.6; O2SAT 93
--- NOTE | 2017-02-20 17:46 | HHI.PR ---
Subjective Remarks Chest tube in place needle lung biopsy done no distress on O2 Path: SARCOMA Objective Vital Signs Date Time Temp Pulse Resp B/P Pulse Ox O2 Delivery O2 Flow Rate FiO2 02/20/17 16:00 96.6 99 20 118/57 93 02/20/17 12:00 96.4 102 18 98/56 94 02/20/17 08:00 96.6 95 18 100/56 93 02/20/17 04:00 97.8 92 18 90/54 92 02/20/17 00:00 96.0 95 18 98/51 93 02/19/17 20:00 96.8 95 19 101/50 92 02/19/17 18:45 96.3 98 22 100/55 95 I/O 02/19/17 02/19/17 02/19/17 02/20/17 02/20/17 02/20/17 07:00 15:00 23:00 07:00 15:00 23:00 Intake Total 745 ml 857 ml 835 ml 971 ml 480 ml Output Total 370 ml 1500 ml 2000 ml 550 ml 300 ml Balance 375 ml -643 ml -1165 ml 421 ml 180 ml Intake Oral 120 ml 480 ml 480 ml IV Total 625 ml 857 ml 835 ml 491 ml Output Urine Total 300 ml 400 ml 300 ml Chest Tube Drainage Total 70 ml 1100 ml 2000 ml 550 ml # Bowel Movements 0 1 Result Diagram: 02/20/1743402/20/17434 Objective Remarks GENERAL: SKIN: Warm and dry. HEAD: Atraumatic. Normocephalic. EYES: Pupils equal and round. No scleral icterus. No injection or drainage. ENT: No nasal bleeding or discharge. Mucous membranes pink and moist. NECK: Trachea midline. No JVD. CARDIOVASCULAR: Regular rate and rhythm. RESPIRATORY: No accessory muscle use. Clear to auscultation. Breath sounds equal bilaterally. GASTROINTESTINAL: Abdomen soft, non-tender, nondistended. Hepatic and splenic margins not palpable. MUSCULOSKELETAL: Extremities without clubbing, cyanosis, or edema. No obvious deformities. NEUROLOGICAL: Awake and alert. No obvious cranial nerve deficits. Motor grossly within normal limits. Five out of 5 muscle strength in the arms and legs. Normal speech. PSYCHIATRIC: Appropriate mood and affect; insight and judgment normal. Assessment and Plan Assessment and Plan RESPIRATORY FAILURE LUNG MASSES ? METASTATIC SARCOMA PLEURAL EFFUSION , MALIGNANT PLAN Pleurodesis before removing CT O2 NEEDED ANTIBIOTICS FOLLOW WBC COUNT Jerson Arthur MD Feb 20, 2017 17:46
--- NOTE | 2017-02-20 19:26 | MB ---
cc: MARK MOORE DATE OF CONSULTATION 02/20/17 REQUESTING PHYSICIAN Nurse practitioner Viv REASON FOR CONSULTATION Capacity assessment related to medical treatment goals. Palliative chemotherapy versus hospice HISTORY OF PRESENT ILLNESS Mr. Fermin is a 76-year-old male with no known past psychiatric history who initially presented on February 15 with complaints of shortness of breath. The patient was found to have a left pleural effusion with pulmonary masses concerning for metastasis. The patient was subsequently found to have soft tissue sarcoma. Reviewing the electronic medical record, I see no prior psychiatric contact within our system. The patient seen and examined. Chart reviewed. Case discussed with nursing staff who reports that the patient is presently alert and oriented x3 and his behavior is appropriate. I do see it charted, however, that the patient has had some episodes of confusion. On my examination today, the patient presents as mildly dyspneic. He admits to periods of confusion but denies any audiovisual hallucinations, nor can I elicit any paranoia or other delusional material at this time. He admits to feeling somewhat distressed by his current circumstance, but I can elicit no clear depressive or hypomanic/manic symptoms. No sleep or appetite disturbance. The remainder of the psychiatric ROS is negative. Regarding the capacity question, the patient articulates preference for chemotherapy, although he seems to believe initially that this is his only treatment option, although hospice had also been mentioned as an alternative. He also seems to believe that this is curative. I am unsuccessful when I endeavor to engage the patient in discussive relative merits of these two treatment options and the patient does not seem to understand the question. PAST PSYCHIATRIC HISTORY The patient denies any history of psychiatric illness. He denies any history of inpatient or outpatient psychiatric treatment. He denies any history of suicide attempts. FAMILY HISTORY The patient denies any family history of mental illness. CHEMICAL DEPENDENCY HISTORY: The patient denies any history of abuse of drugs or alcohol. SOCIAL HISTORY The patient is originally from [place], [place]. He moved to [place] about 40 years ago and presently lives alone. He was in 1987. He has four sons. He is high school educated. 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 He denies any or legal history. 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 PAST MEDICAL HISTORY See above. See electronic medical record as well. REVIEW OF SYSTEMS The patient complains some dyspnea but otherwise no headache, no vision or hearing changes, no chest pain, no bowel or bladder issues. No other physical complaints. PHYSICAL EXAMINATION Temperature is 96.6, pulse 99, respirations 20, blood pressure 118/57, pulse oximetry 93% on room air. A physical examination was completed by the primary team. On my examination today, I note the patient is thin and ill-appearing but otherwise in no acute physical distress. No motor abnormalities noted. LABORATORY DATA Reviewed: CBC is significant for marked leukocytosis of 154. He is also anemic with a hemoglobin of 7.7. CMP - GFR is reduced at 55 and calcium is critically low at 7.1. Urinalysis was obtained on the and was concerning for UTI, although subsequent urine culture was negative. IMAGING STUDIES Head CT was degraded by motion artifact but with no obvious masses. MENTAL STATUS EXAM The patient is in hospital gown. He is somewhat disheveled but maintaining basic hygiene. He is awake and alert and oriented to person, place and month and year. His registration is 3/3 but his recall is 0/3 at 5 minutes. He is able to spell the word WORLD forwards but not backwards. He is able to name two items and repeat a phrase. No motoric abnormalities noted. Speech is within normal limits for rate, tone and volume. Language and fund of knowledge seem perhaps slightly reduced. Mood is fair. Affect is blunted. Thought process is fairly linear. No loosening of associations. No evident delusions. Denies audiovisual hallucinations. Denies suicidal or homicidal ideation. Insight and judgment are fair at best. ASSESSMENT/PLAN 1. Delirium, multifactorial, F05 Rule out some degree of adjustment reaction perhaps with depressed mood. This is a 76-year-old male with psychiatric history as detailed above who is presently admitted for the management of sequelae of metastatic sarcoma. He has what are felt to be malignant pleural effusions with associated respiratory failure. Psychiatry is consulted to assess for capacity to make decisions regarding treatment planning. As I have been led to understand it, the options at present are palliative chemotherapy versus hospice. The patient does articulate a consistent choice in favor of palliative chemotherapy, but it seems like he has not adequately considered the alternative and did not seem to recognize that this was an option at all until I had mentioned it to him. Nursing staff reassures me that the relevant teams have provided the patient with his options in some detail. Consequently, it is my belief that the patient is not presently able, perhaps as a consequence of his mild delirium, to fully appreciate the relative merits and demerits of his treatment options. Given that this seems to be a fairly significant treatment decision for the patient, I think it is necessary in the calculus of determining whether he has capacity to make such decisions to employ a fairly high bar. Therefore, on balance I would microsystems engineer that the patient presently lacks capacity to make treatment decisions regarding management of his cancer. I would recommend utilizing the assistance of a healthcare surrogate, and I am to understand that there is one already in place. If I can provide any further assistance in the care of this patient, I would be happy to do so. Please give me a page at [phone]. Case discussed with RN. Thank you very much for this consultation. Mark SANCHEZ /6:16 PM /7:09 PM ELICIA
[2017-02-20 20:00] VITALS: BP 93/53; PULSE 99; RESP 20; TEMP 96.3; O2SAT 92
--- NOTE | 2017-02-20 22:27 | PD.ID.CON ---
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 presented with SOB x 1-2 weeks He was found to have L pleural effusion, sp CT placement, his pleural fluid was hemorragic with malignant celles present Noted to have extremely high leukocytosis up to 154 K with neutrophil predominance (ANC > 106K) but no fevers Denies nasae, vomiting diarrhea + occ minimal cough non productive Review of Systems Except as stated in HPI: all other systems reviewed are Neg Past Family Social History Allergies: Coded Allergies: Aspirin (Verified Allergy, Severe, Rash, 02/15/17) Past Medical History LUE sarcoma with metastatic disease Past Surgical History L below elbow amputation Active Ordered Medications [facility] Family History Non-Contributory. Social History No Tobacco. Remote. QUit 1970s No ETOH. No Illicit Drugs. Physical Exam Vital Signs Vital Signs Date Time Temp Pulse Resp B/P Pulse Ox O2 Delivery O2 Flow Rate FiO2 02/20/17 20:00 96.3 99 20 93/53 92 02/20/17 16:00 96.6 99 20 118/57 93 02/20/17 12:00 96.4 102 18 98/56 94 02/20/17 08:00 96.6 95 18 100/56 93 02/20/17 04:00 97.8 92 18 90/54 92 02/20/17 00:00 96.0 95 18 98/51 93 Physical Exam CONSTITUTIONAL/GENERAL: This is an adequately nourished patient, in no apparent distress. TUBES/LINES/DRAINS: PORT in place R chest - looks OK SKIN: No jaundice, rashes, or lesions. . Skin temperature appropriate. Not diaphoretic. HEAD: Atraumatic. Normocephalic. EYES: Pupils equal and round and reactive. Extraocular motions intact. No scleral icterus. No injection or drainage. Fundi not examined. ENT: Hearing grossly normal. Nose without bleeding or purulent drainage. Very poor dentition that are moving. Bleeding gums Dry mucosae NECK: Trachea midline. Supple, nontender. CARDIOVASCULAR: Regular rate and rhythm without murmurs, gallops, or rubs. No JVD. Peripheral pulses symmetric. RESPIRATORY/CHEST: Symmetric, unlabored respirations. Clear to auscultation. Breath sounds equal bilaterally. No wheezes, rales, or rhonchi. CT in place with hemorrhagic drainage GASTROINTESTINAL: Abdomen soft, non-tender, nondistended. No hepato-splenomegaly , or palpable masses. No guarding. Bowel sounds present. GENITOURINARY: Without palpable bladder distension. MUSCULOSKELETAL: Extremities without clubbing, cyanosis, or edema. No joint tenderness or effusion noted. No calf tenderness. No mottling or clubbing. below elbow LUE amputaiton - well healed LYMPHATICS: No palpable cervical or supraclavicular adenopathy. NEUROLOGICAL: Awake and alert. Motor and sensory grossly within normal limits. Follows commands.Normal speech. Moves all extremities. PSYCHIATRIC: No obvious anxiety/depression. no apparent hallucinations or other psychotic thought process. Laboratory Laboratory Tests Test 02/20/17 04:35 White Blood Count 154.2 Red Blood Count 2.61 Hemoglobin 7.7 Hematocrit 23.2 Mean Corpuscular Volume 88.7 Mean Corpuscular Hemoglobin 29.4 Mean Corpuscular Hemoglobin 33.1 Concent Red Cell Distribution Width 13.0 Platelet Count 345 Mean Platelet Volume 8.5 Sodium Level 140 Potassium Level 4.0 Chloride Level 108 Carbon Dioxide Level 22.1 Anion Gap 10 Blood Urea Nitrogen 39 Creatinine 1.28 Estimat Glomerular Filtration 55 Rate Random Glucose 109 Calcium Level 7.1 Protein Corrected Calcium 8.5 Total Protein 4.5 Date/Time Procedure Status Source Growth 02/17/17 11:00 Urine Culture - Final Complete Urine Random Urine NO GROWTH IN 48 HOURS. 02/16/17 15:45 Gram Stain - Final Complete Wound Lung 02/16/17 15:45 Wound Culture - Final Complete Wound Lung NO GROWTH IN 72 HRS.--AEROBICALLY OR ... 02/16/17 15:45 Fungal Smear - Final Resulted Wound Lung NO FUNGAL ELEMENTS SEEN. 02/16/17 15:45 Fungal Culture Resulted Wound Lung Pending 02/16/17 15:45 Acid Fast Stain - Final Resulted Wound Lung NO ACID FAST BACILLI SEEN 02/16/17 15:45 Mycobacterial Culture Resulted Wound Lung Pending Result Diagram: 02/20/17 0435 02/20/17 0435 Imaging Last Impressions Chest X-Ray 02/19/17 0600 Signed Impressions: Service Date/Time: Sunday, February 19, 2017 04:24 - CONCLUSION: Stable chest x-ray with bilateral pulmonary masses and suspected consolidation. Brian Olivas MD Port Line Insertion 02/19/17 0000 Signed Impressions: Service Date/Time: Sunday, February 19, 2017 16:00 - CONCLUSION: Uncomplicated ultrasound and fluoroscopic guided implanted central venous port catheter placement as described in detail above. An 8 Sami Power port was placed. Dago Hines MD Lung Biopsy CT 02/16/17 1326 Signed Impressions: Service Date/Time: Thursday, February 16, 2017 15:26 - CONCLUSION: Uncomplicated CT guided biopsy. Mark Martell MD Renal Ultrasound 02/16/17 0000 Signed Impressions: Service Date/Time: Thursday, February 16, 2017 17:36 - CONCLUSION: Multiple bilateral renal cysts. Renal cortical thinning. Cholelithiasis. Small left pleural effusion. Pola Cortes MD Head CT 02/15/17 0000 Signed Impressions: Service Date/Time: Wednesday, February 15, 2017 11:53 - CONCLUSION: Marked motion artifact. I do not see evidence for a mass. Nick Murphy MD FACR Chest Tube Insertion 02/15/17 0000 Signed Impressions: Service Date/Time: Wednesday, February 15, 2017 13:23 - CONCLUSION: Uncomplicated left chest tube placement as above. 3 L of bloody fluid was removed. Samples to the lab as requested. Metastatic lesions seen throughout the lungs bilaterally. Jermaine Chisholm Jr., MD Chest CT 02/15/17 0000 Signed Impressions: Service Date/Time: Wednesday, February 15, 2017 12:04 - CONCLUSION: Markedly abnormal CT scan of the chest with complete opacification of left hemithorax with consolidative changes about the left lung. Multiple soft tissue masses are seen on the right. Easiest way to obtain diagnosis is biopsy of the large mass anteriorly on the right. This could be biopsies percutaneously. Thoracentesis would be of benefit with tube placement on the left. Nick Murphy MD FACR Abdomen/Pelvis CT 02/15/17 0000 Signed Impressions: Service Date/Time: Wednesday, February 15, 2017 12:04 - CONCLUSION: 1. Large pleural effusion on the left with pleural thickening and parenchymal mass on the right. Lung cancer is suspected. I do not see obvious metastatic disease in the abdomen. 2. Gallstones. Nick Murphy MD FACR Assessment and Plan Assessment and Plan Metastatic sarcoma of LUE , high grade with malignat pleural effusion Leukoctosis, leukemoid reaction without overt infection ? malignancy -fu blood clx - if no apparent infx will dc abx Sharee Hernandez MD Feb 20, 2017 22:27
[2017-02-21] VITALS: BP 103/58; PULSE 103; RESP 20; TEMP 96.1; O2SAT 93
[2017-02-21 04:00] VITALS: BP 95/50; PULSE 106; RESP 20; TEMP 96.2; O2SAT 92
[2017-02-21] MEDS: CHLORHEXIDINE GLUCONATE 2 % 1 PACK (2 CLOTHS) TOP SCH (04:00)
[2017-02-21] MEDS: INSULIN NovoLIN REGULAR SUPPLEMENTAL SCALE SQ SCH ×2 (04:48→11:30)
[2017-02-21] MEDS: PIPERACIL-TAZO 3.375 GM PREMIX 50 ML IV SCH ×2 (04:49→12:59)
[2017-02-21] MEDS: DOCUSATE SODIUM 50 MG/SENNA 8.6 MG TAB PO SCH (07:58)
[2017-02-21] MEDS: PANTOPRAZOLE SODIUM 40 MG VIAL IV SCH (07:59)
[2017-02-21] MEDS: CHOLECALCIFEROL (VIT D3) 1000 UNIT TAB PO SCH (07:59)
[2017-02-21 08:00] VITALS: BP 96/64; PULSE 110; RESP 22; TEMP 97.6; O2SAT 92
[2017-02-21] MEDS: POTASSIUM PHOSPHATE/SODIUM PHOSPHATE 250 MG TAB PO SCH (08:00)
[2017-02-21] MEDS: RESP: ALBUTEROL 2.5 MG/IPRATROPIUM 0.5 MG NEB (PRN) INH (08:02)
[2017-02-21 08:04] VITALS: O2SAT 92
[2017-02-21 08:35] LABS: HEMATOCRIT 22.9 % (39.0-51.0); MEAN CELL VOLUME 90.6 FL (80.0-100.0); MEAN CORPUSCULAR HEMOGLOBIN 28.5 PG (27.0-34.0); MEAN CORPUSCULAR HGB CONC 31.4 % (32.0-36.0); PLATELET COUNT 386 TH/MM3 (150-450); RED BLOOD COUNT 2.52 MIL/MM3 (4.50-5.90); RED CELL DISTRIBUTION WIDTH 13.7 % (11.6-17.2); WHITE BLOOD COUNT 219.8 TH/MM3 (4.0-11.0)
[2017-02-21 08:37] LABS: HEMO FLAGS AUTO DIFF
[2017-02-21 08:56] LABS: BICARBONATE 17.4 MEQ/L (21.0-32.0); POTASSIUM 3.9 MEQ/L (3.5-5.1)
[2017-02-21 09:06] LABS: CALCIUM-PROTEIN CORRECTED 8.2 MG/DL (8.5-10.1)
[2017-02-21 09:29] LABS: BANDS 35 % (0-6); EOSINOPHILS 1 % (0-4); METAMYELOCYTES 1 % (0-1); POLYS (SEG NEUTROPHILS) 60 % (16-70); WBC DIFF SAMPLE 100
[2017-02-21 09:30] LABS: DOHLE BODIES PRESENT (NONE SEEN); PLATELET ESTIMATE SMEAR NORMAL (NORMAL); PLATELET MORPHOLOGY NORMAL (NORMAL); SCAN/DIFF FINAL DIFF MANUAL; TOXIC GRANULATION 1+ (NORMAL)
[2017-02-21 09:31] LABS: ROULEAUX PRESENT (NORMAL)
--- NOTE | 2017-02-21 09:47 | RADRPT ---
EXAM DATE/TIME: 02/21/2017 09:09 [facility] COMPARISON: CHEST SINGLE AP, February 19, 2017, 4:24. INDICATIONS : Respiratory distress. MEDICAL HISTORY : Sarcoma. Sarcoma. SURGICAL HISTORY : Tonsillectomy. [id number]. ENCOUNTER: Subsequent ACUITY: 4 - 6 days PAIN SCORE: 7/10 LOCATION: Bilateral chest FINDINGS: Study remains abnormal. Extensive metastatic disease is seen on the both the right and left lung pro gressing in the interval. [id number] is in good position. Drainage catheter is noted on the left . CONCLUSION: Further deterioration in the appearance of the chest with increasing parenchymal metastatic disease a nd consolidative changes. Nick Murphy MD FACR on February 21, 2017 at 9:38 Board Certified Radiologist. This report was verified electronically.
--- NOTE | 2017-02-21 10:37 | PD.ONC.PN ---
Subjective Subjective Remarks Afebrile overnight. Patient states he is feeling short of breath. Per nurse, since this AM he has been dyspneic. No other reported symptoms. Objective Data Date Time Temp Pulse Resp B/P Pulse Ox O2 Delivery O2 Flow Rate FiO2 02/21/17 08:04 92 Nasal Cannula 4.00 02/21/17 08:00 97.6 110 22 96/64 92 02/21/17 04:00 96.2 106 20 95/50 92 02/21/17 00:00 96.1 103 20 103/58 93 02/20/17 20:00 96.3 99 20 93/53 92 02/20/17 16:00 96.6 99 20 118/57 93 02/20/17 12:00 96.4 102 18 98/56 94 02/21/17 02/21/17 02/21/17 07:00 15:00 23:00 Intake Total 240 ml Output Total 540 ml Balance -300 ml Result Diagram: 02/21/17 0630 02/21/17 0630 Laboratory Results Laboratory Tests Test 02/21/17 06:30 White Blood Count 219.8 TH/MM3 Red Blood Count 2.52 MIL/MM3 Hemoglobin 7.2 GM/DL Hematocrit 22.9 % Mean Corpuscular Volume 90.6 FL Mean Corpuscular Hemoglobin 28.5 PG Mean Corpuscular Hemoglobin 31.4 % Concent Red Cell Distribution Width 13.7 % Platelet Count 386 TH/MM3 Mean Platelet Volume 8.6 FL Neutrophils (%) (Auto) % Lymphocytes (%) (Auto) % Monocytes (%) (Auto) % Eosinophils (%) (Auto) % Basophils (%) (Auto) % Neutrophils # (Auto) TH/MM3 Lymphocytes # (Auto) TH/MM3 Monocytes # (Auto) TH/MM3 Eosinophils # (Auto) TH/MM3 Basophils # (Auto) TH/MM3 CBC Comment AUTO DIFF Differential Total Cells 100 Counted Neutrophils % (Manual) 60 % Band Neutrophils % 35 % Lymphocytes % 1 % Monocytes % 2 % Eosinophils % 1 % Neutrophils # (Manual) 211.0 TH/MM3 Metamyelocytes 1 % Differential Comment FINAL DIFF MANUAL Toxic Granulation 1+ Dohle Bodies PRESENT Platelet Estimate NORMAL Platelet Morphology Comment NORMAL Rouleau PRESENT Sodium Level 140 MEQ/L Potassium Level 3.9 MEQ/L Chloride Level 104 MEQ/L Carbon Dioxide Level 17.4 MEQ/L Anion Gap 19 MEQ/L Blood Urea Nitrogen 50 MG/DL Creatinine 1.53 MG/DL Estimat Glomerular Filtration 45 ML/MIN Rate Random Glucose 93 MG/DL Calcium Level 6.9 MG/DL Protein Corrected Calcium 8.2 MG/DL Total Protein 4.7 GM/DL Culture Results Microbiology Date/Time Procedure Status Source Growth 02/21/17 07:45 Aerobic Blood Culture Received Blood Peripheral Pending 02/21/17 07:45 Anaerobic Blood Culture Received Blood Peripheral Pending 02/21/17 07:50 Aerobic Blood Culture Received Blood Peripheral Pending 02/21/17 07:50 Anaerobic Blood Culture Received Blood Peripheral Pending Administered Medications Medications (Trade) Dose Ordered Sig/Debbie Route PRN Reason Start Time Stop Time Status Last Admin Dose Admin Pantoprazole Sodium (Protonix Inj) 40 mg DAILY IV 02/15/17 11:30 02/21/17 07:59 Chlorhexidine Gluconate (Chlorhexidine 2% Cloth) Taper DAILY@04 TOP 02/16/17 04:00 02/12/18 03:59 02/20/17 04:00 Insulin Human Regular 1 1 Q6H SQ 02/15/17 11:30 02/20/17 18:26 Piperacillin Sod/ Tazobactam Sod 50 ml @ 100 mls/hr Q8H IV 02/16/17 13:00 02/21/17 04:49 Sodium Chloride (/ NS 1000 ml Inj) 1,000 ml @ 60 mls/hr [id number] IV 02/16/17 12:00 02/20/17 21:41 Senna/Docusate Sodium (Ginna-Colace) 1 tab BID PO 02/17/17 21:00 02/21/17 07:58 Cholecalciferol (Vitamin D3) 2,000 units DAILY PO 02/18/17 09:00 02/21/17 07:59 Potassium Phos/ Sodium Phos (K-Phos Neutral) 250 mg Q12H PO 02/19/17 22:00 02/21/17 08:00 Objective Remarks GENERAL: Elderly male, supine in bed, appears dyspneic. SKIN: Warm and dry. HEAD: Normocephalic. EYES: No injection or drainage. NECK: Supple, trachea midline. CARDIOVASCULAR: +S1/S2 RESPIRATORY: anterior mckinney with scattered rhonchi. diminished breath sounds on left GASTROINTESTINAL: Abdomen soft, non-tender, nondistended. EXTREMITIES: No cyanosis MUSCULOSKELETAL: Adequate muscle tone. NEUROLOGICAL: awake and alert. able to move extremities. 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 patient's healthcare surrogate will need to make decisions for him. his respiratory status is decompensating today. It is likely he will end up back [place] [facility] 02/20/17: d/w palliative care yesterday. will await psychiatry evaluation for competency to make decisions before proceeding with chemotherapy. also patient is going to speak with his sister--they are deciding whether to start treatment in [place] where she lives or here in [place]. 02/19/17: pathology shows high grade sarcoma. port placed. History November 2015: presented to ED at [facility]. Dr. Portillo ordered MRI, showed soft tissue mass, referred to Dr. 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 CT chest showed pulmonary masses and pleural effusion. CT ab/pelvis: no mets (2) Pleural effusion on left Status: Acute Plan: --s/p thoracentesis and chest tube placement. --cytology shows sarcoma. --pulmonology following. may need pleurodesis (3) Leukocytosis Status: Acute Plan: -- Leukocytosis with neutrophilia and bandemia and no peripheral blasts. --most likely reactive process such as leukemoid reaction from lung mets and sepsis or this could be from myeloproliferative disorder. --no peripheral blast. --BCR-ABL by FISH and AARON-2 mutation for evaluation of myeloproliferative disorder pending--I called and spoke with I labs, these will likely result sometime next week, as of 02/19 they are still pending. --ID following, patient on antibiotics. Assessment 76y/o male admitted [place] [facility] with respiratory insufficiency. Oncology consulted for evaluation of leukocytosis and bilateral pulmonary masses. 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 Sister Ashley is a registered nurse. She lives in [facility]. Her telephone number is [phone]. Plan UPDATE: later in the morning the patient became hypoxic and unresponsive. I called and spoke with the patient's sister, Ashley who is his healthcare surrogate. We discussed the patient's poor prognosis with Sarcoma and she agreed he would not want to be coded or intubated. His code status was changed to No Code. I relayed the information immediately to the well logging captain, Dr. Kline , who had also spoken with Ashley right after my conversation. Attending Statement The exam, history, and the medical decision-making described in the above note were completed with the assistance of the mid-level provider. I reviewed and agree with the findings presented. I attest that I had a [id number] encounter with the patient on the same day, and personally performed and documented my assessment and findings in the medical record. Events noted. Patients in respiratory failure. Prognosis is very poor. Family has decided on DNR. Discussed with well logging captain . Morenita Farooq Feb 21, 2017 10:37 Hilton Lester MD Feb 21, 2017 12:09
[2017-02-21 11:22] LABS: BLOOD GAS BASE EXCESS -19.4 mmol/L (-2-2); BLOOD GAS CARBOXYHEMOGLOBIN 1.2 % (0-4); BLOOD GAS HCO3 9 mmol/L (22-26); BLOOD GAS METHEMOGLOBIN 2.4 % (0-2); BLOOD GAS O2 HGB SATURATION 81 % (90-100); BLOOD GAS OXYGEN CONTENT 9.1 Vol % (12.0-20.0); BLOOD GAS PCO2 37 mmHg (38-42); BLOOD GAS PO2 77 mmHg (61-120); BLOOD GAS TOTAL HGB 7.9 G/DL (12.0-16.0); CRITICAL VALUE YES; DRAW SITE RT FEMORAL; LITER FLOW 6 L/M; NUMBER OF ARTERIAL PUNCTURES 1; OXYGEN DEVICE SIMPLE MASK; STAT YES; TEMP CORR TO 98.6
[2017-02-21 11:30] VITALS: BP 62/27; PULSE 82; RESP 20
[2017-02-21] MEDS ORDERED: SODIUM BICARBONATE 8.4% INJ 50 MEQ/50 ML SYR ONE (11:32)
[2017-02-21] MEDS ORDERED: MIDAZOLAM HCL 5 MG/ML VIAL (1 ML) ONE (11:47)
[2017-02-21] MEDS ORDERED: SODIUM BICARBONATE 8.4% INJ 50 MEQ/50 ML SYR IV PUSH ONE (12:00)
[2017-02-21] MEDS ORDERED: MIDAZOLAM HCL 2 MG/2 ML VIAL IV PUSH ONE (12:00)
[2017-02-21] MEDS: SODIUM CHLOR 0.45% 1000 ML INJ 1,000 ML IV SCH (12:13)
--- NOTE | 2017-02-21 14:34 | PD.CONS ---
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 He was initially under my care and in the intensive care unit for a malignant pleural effusion with left-sided pigtail chest tube. During the time that I was his attending physician, we had a few conversations where he stated to me that he understood that he was dying, and he had accepted this fact. He did state to me that he wanted to try and get back to [place] where the rest of his family was so that he did not alone. This was the primary reason why he remained a full code while under my care. He rapid response today for altered mental status. I evaluated the patient at bedside during the rapid response. Patient was completely obtunded. He was in severe respiratory distress. Is very difficult to get a blood pressure, and the best blood pressure got was a systolic of 67. The patient was diaphoretic. His lungs had bilateral coarse rales. He had a significant amount of serosanguineous chest tube output. We were initially unable to get a hold of his sister and medical decision maker. He was taken emergently to the surgical intensive care unit for management. I gave him 3 A of sodium bicarbonate for a serum bicarbonate of 9. At this point we're able to get in touch with his sister, and I explained that he was in severe distress and likely from this decompensation. Rather than pursue aggressive measures with intubation and chest compressions and further invasive procedures, his sister decided to make him comfortable and pursue palliation. Given my conversations with the patient a few days prior, I agree with this assessment, and this appears to be in congruence with the patient's expressed wishes to me. Thus, we pursued palliation. He was given pain medicine. Due to patient's primary concern that he did not want to alone, I remained at bedside with the patient until he . He at 10:56. Review of Systems ROS Limitations: Clinical Condition, Altered Mental Status, Unresponsive Past Family Social History Allergies: Coded Allergies: Aspirin (Verified Allergy, Severe, Rash, 02/15/17) Past Medical History complete pmhx is unobtainable secondary to clinical condition. He does have a past medical history of sarcoma Past Surgical History Unknown unobtainable secondary to his critical condition Reported Medications Unknown and unobtainable secondary to patient's clinical condition Active Ordered Medications See MAR Family History Unknown unobtainable secondary to patient's clinical condition Social History Unknown and unobtainable secondary to the patient's clinical condition Physical Exam Vital Signs Vital Signs Date Time Temp Pulse Resp B/P Pulse Ox O2 Delivery O2 Flow Rate FiO2 02/21/17 11:30 Non-Rebreather 15.00 100 02/21/17 11:30 82 20 62/27 02/21/17 08:04 92 Nasal Cannula 4.00 02/21/17 08:00 97.6 110 22 96/64 92 02/21/17 04:00 96.2 106 20 95/50 92 02/21/17 00:00 96.1 103 20 103/58 93 02/20/17 20:00 96.3 99 20 93/53 92 02/20/17 16:00 96.6 99 20 118/57 93 Physical Exam elderly male in severe distress. tachypneic, diaphoretic. obtunded. on NRB. cyanotic. Laboratory Laboratory Tests Test 02/21/17 02/21/17 06:30 11:15 White Blood Count 219.8 Red Blood Count 2.52 Hemoglobin 7.2 Hematocrit 22.9 Mean Corpuscular Volume 90.6 Mean Corpuscular Hemoglobin 28.5 Mean Corpuscular Hemoglobin 31.4 Concent Red Cell Distribution Width 13.7 Platelet Count 386 Mean Platelet Volume 8.6 Neutrophils (%) (Auto) Lymphocytes (%) (Auto) Monocytes (%) (Auto) Eosinophils (%) (Auto) Basophils (%) (Auto) Neutrophils # (Auto) Lymphocytes # (Auto) Monocytes # (Auto) Eosinophils # (Auto) Basophils # (Auto) CBC Comment AUTO DIFF Differential Total Cells 100 Counted Neutrophils % (Manual) 60 Band Neutrophils % 35 Lymphocytes % 1 Monocytes % 2 Eosinophils % 1 Neutrophils # (Manual) 211.0 Metamyelocytes 1 Differential Comment FINAL DIFF MANUAL Toxic Granulation 1+ Dohle Bodies PRESENT Platelet Estimate NORMAL Platelet Morphology Comment NORMAL Rouleau PRESENT Sodium Level 140 Potassium Level 3.9 Chloride Level 104 Carbon Dioxide Level 17.4 Anion Gap 19 Blood Urea Nitrogen 50 Creatinine 1.53 Estimat Glomerular Filtration 45 Rate Random Glucose 93 Calcium Level 6.9 Protein Corrected Calcium 8.2 Total Protein 4.7 Blood Gas Puncture Site RT FEMORAL Blood Gas Patient Temperature 98.6 Blood Gas HCO3 9 Blood Gas Base Excess -19.4 Blood Gas Oxygen Saturation 81 Arterial Blood pH 7.03 Arterial Blood Partial 37 Pressure CO2 Arterial Blood Partial 77 Pressure O2 Arterial Blood Oxygen Content 9.1 Arterial Blood 1.2 Carboxyhemoglobin Arterial Blood Methemoglobin 2.4 Blood Gas Hemoglobin 7.9 Oxygen Delivery Device SIMPLE MASK Blood Gas Liter Flow 6 Date/Time Procedure Status Source Growth 02/21/17 07:50 Aerobic Blood Culture Received Blood Peripheral Pending 02/21/17 07:50 Anaerobic Blood Culture Received Blood Peripheral Pending 02/17/17 11:00 Urine Culture - Final Complete Urine Random Urine NO GROWTH IN 48 HOURS. 02/16/17 15:45 Gram Stain - Final Complete Wound Lung 02/16/17 15:45 Wound Culture - Final Complete Wound Lung NO GROWTH IN 72 HRS.--AEROBICALLY OR ... 02/16/17 15:45 Fungal Smear - Final Resulted Wound Lung NO FUNGAL ELEMENTS SEEN. 02/16/17 15:45 Fungal Culture Resulted Wound Lung Pending 02/16/17 15:45 Acid Fast Stain - Final Resulted Wound Lung NO ACID FAST BACILLI SEEN 02/16/17 15:45 Mycobacterial Culture Resulted Wound Lung Pending Result Diagram: 02/21/17 0630 02/21/17 0630 Assessment and Plan Assessment and Plan Active Problems: Acute hypoxic respiratory failure Severe acute acidosis Metastatic sarcoma Plan fentanyl and versed prn. DNR/DNI. This patient remained critically ill with one or more organ systems which were life-threatening. This note represents documentation of the time I spent in evaluation and management of this critically ill patient during which our goals remained aggressive. This includes time spent in evaluation the patient during the rapid response, transitioning the unstable patient to the intensive care unit, evaluation of laboratory data, and discussions with consultants and family regarding prognosis. This does not include time spent with the patient once our goals were transitioned to palliation. I have spent in excess of 31 minutes discontinuously in the care and management of this patient. This time is exclusive of procedures, and includes, but is not limited to, evaluation of the patient, review of the medical record, discussions with family, consultants , nursing staff, or respiratory therapy, and documentation in the medical record. Code Status DNR/DNI Sharif Kline MD Feb 21, 2017 14:34
--- NOTE | 2017-02-21 14:39 | DEATH SUM ---
Pronouncement Date Pronounced : Feb 21, 2017 Time Of : 1156 Pronouncement Called to pronounce of patient. Identified patient as Pola Fermin with wrist band MR# [id number]. Patient with no cardiac activity in 2 separate leads and no palpable/auscible cardiac activity. Patient with no spontaneous respirations, no corneal reflex or response to painful stimuli. Pupils fixed and dilated. Preliminary Cause of : Cardiac arrest Sharif Kline MD Feb 21, 2017 14:39
--- NOTE | 2017-02-21 14:40 | HHI.DS ---
Summary Note Date of : Feb 21, 2017 Time Of : 1156 Admission Date Feb 15, 2017 at 10:06 Admitting Diagnosis acute hypoxic resp failure,large L pleural effusion,mult lung masses Diagnosis at Time of : Brief History The patient is a 76-year-old who denies any significant past medical history, presented to [facility] ED with respiratory distress. The patient states that he has been short of breath for the past 2 weeks and progressively worsened. He also reports productive cough with brown phlegm, however, he denies any fever, chills or any constitutional symptoms. The patient denies any nausea, vomiting or abdominal pain. He has not seen a physician for several years and is not on any medications at home. The patient has a remote history of tobacco use and used to smoke a pack a day for several years. On arrival to the ED the patient was tachycardic with heart rate of 120s, tachypneic and hypoxic. He was placed on a non-rebreather mask with current saturation of 98-99%. The chest x-ray in the ER showed large left pleural effusion occupying approximately two-third of the left lung field along with pulmonary masses worrisome for metastatic disease. His laboratory data is significant for acute kidney injury with a BUN of 43, creatinine 1.70, hypercalcemia with calcium level 10.5. In addition his WBC was 110.2, associated with bandemia of 22. In the ER he was given Lasix [address] scan of the chest, abdomen and pelvis was ordered by the ED, in addition interventional radiology was consulted by ER for chest tube placement. 02/16 Patient s/p CT placement by IR yesterday with removal 3L hemorrhagic fluid upon insertion additional 500ml drained overnight. Pleural effusion consistent with exudative picture. Afebrile. 02/17 No acute events overnight. Approximately 300 cc serosanguineous fluid draining from left chest tube. Patient's resting comfortably no dyspnea noted. 02/18: patient denies any complaints. states he ate breakfast this morning. eager to get out of bed to chair today. not very dyspneic on my exam. 500cc bloody drainage from left chest tube. CBC/BMP: 02/21/17 0630 02/21/17 0630 Significant Findings Laboratory Tests Test 02/19/17 02/19/17 02/20/1717 03:29 03:47 04:35 06:30 Blood Urea Nitrogen 46 MG/DL (7-18) 39 MG/DL (7-18) 50 MG/DL (7-18) Creatinine 1.46 MG/DL 1.53 MG/DL (0.60-1.30) (0.60-1.30) Estimat Glomerular Filtration 47 ML/MIN (>89) 55 ML/MIN (>89) 45 ML/MIN (>89) Rate Random Glucose 141 MG/DL 109 MG/DL (74-106) (74-106) Calcium Level 7.3 MG/DL 7.1 MG/DL 6.9 MG/DL (8.5-10.1) (8.5-10.1) (8.5-10.1) Total Protein 4.9 GM/DL 4.5 GM/DL 4.7 GM/DL (6.4-8.2) (6.4-8.2) (6.4-8.2) White Blood Count 138.6 TH/MM3 154.2 TH/MM3 219.8 TH/MM3 (4.0-11.0) (4.0-11.0) (4.0-11.0) Red Blood Count 3.14 MIL/MM3 2.61 MIL/MM3 2.52 MIL/MM3 (4.50-5.90) (4.50-5.90) (4.50-5.90) Hemoglobin 8.9 GM/DL 7.7 GM/DL 7.2 GM/DL (13.0-17.0) (13.0-17.0) (13.0-17.0) Hematocrit 27.9 % 23.2 % 22.9 % (39.0-51.0) (39.0-51.0) (39.0-51.0) Mean Corpuscular Hemoglobin 31.9 % 31.4 % Concent (32.0-36.0) (32.0-36.0) Chloride Level 108 MEQ/L (98-107) Band Neutrophils % 35 % (0-6) Lymphocytes % 1 % (9-44) Neutrophils # (Manual) 211.0 TH/MM3 (1.8-7.7) Toxic Granulation 1+ (NORMAL) Dohle Bodies PRESENT (NONE SEEN) Rouleau PRESENT (NORMAL) Carbon Dioxide Level 17.4 MEQ/L (21.0-32.0) Anion Gap 19 MEQ/L (5-15) Protein Corrected Calcium 8.2 MG/DL (8.5-10.1) Test 02/21/17 11:15 Blood Gas HCO3 9 mmol/L (22-26) Blood Gas Base Excess -19.4 mmol/L (-2-2) Blood Gas Oxygen Saturation 81 % (90-100) Arterial Blood pH 7.03 (7.380-7.420) Arterial Blood Partial 37 mmHg (38-42) Pressure CO2 Arterial Blood Oxygen Content 9.1 Vol % (12.0-20.0) Arterial Blood Methemoglobin 2.4 % (0-2) Blood Gas Hemoglobin 7.9 G/DL (12.0-16.0) Imaging Last Impressions Chest X-Ray 02/16/17 0000 Signed Impressions: Service Date/Time: Thursday, February 16, 2017 02:56 - CONCLUSION: 1. Small caliber left chest tube with tiny left apical pneumothorax, decreased from February 15. Christian Dueñas MD Head CT 02/15/17 0000 Signed Impressions: Service Date/Time: Wednesday, February 15, 2017 11:53 - CONCLUSION: Marked motion artifact. I do not see evidence for a mass. Nick Murphy MD FACR Chest Tube Insertion 02/15/17 0000 Signed Impressions: Service Date/Time: Wednesday, February 15, 2017 13:23 - CONCLUSION: Uncomplicated left chest tube placement as above. 3 L of bloody fluid was removed. Samples to the lab as requested. Metastatic lesions seen throughout the lungs bilaterally. Jermaine Chisholm Jr., MD Chest CT 02/15/17 0000 Signed Impressions: Service Date/Time: Wednesday, February 15, 2017 12:04 - CONCLUSION: Markedly abnormal CT scan of the chest with complete opacification of left hemithorax with consolidative changes about the left lung. Multiple soft tissue masses are seen on the right. Easiest way to obtain diagnosis is biopsy of the large mass anteriorly on the right. This could be biopsies percutaneously. Thoracentesis would be of benefit with tube placement on the left. Nick Murphy MD FACR Abdomen/Pelvis CT 02/15/17 0000 Signed Impressions: Service Date/Time: Wednesday, February 15, 2017 12:04 - CONCLUSION: 1. Large pleural effusion on the left with pleural thickening and parenchymal mass on the right. Lung cancer is suspected. I do not see obvious metastatic disease in the abdomen. 2. Gallstones. 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 He was initially under my care and in the intensive care unit for a malignant pleural effusion with left-sided pigtail chest tube. During the time that I was his attending physician, we had a few conversations where he stated to me that he understood that he was dying, and he had accepted this fact. He did state to me that he wanted to try and get back to [place] where the rest of his family was so that he did not alone. This was the primary reason why he remained a full code while under my care. He rapid response today for altered mental status. I evaluated the patient at bedside during the rapid response. Patient was completely obtunded. He was in severe respiratory distress. Is very difficult to get a blood pressure, and the best blood pressure got was a systolic of 67. The patient was diaphoretic. His lungs had bilateral coarse rales. He had a significant amount of serosanguineous chest tube output. We were initially unable to get a hold of his sister and medical decision maker. He was taken emergently to the surgical intensive care unit for management. I gave him 3 A of sodium bicarbonate for a serum bicarbonate of 9. At this point we're able to get in touch with his sister, and I explained that he was in severe distress and likely from this decompensation. Rather than pursue aggressive measures with intubation and chest compressions and further invasive procedures, his sister decided to make him comfortable and pursue palliation. Given my conversations with the patient a few days prior, I agree with this assessment, and this appears to be in congruence with the patient's expressed wishes to me. Thus, we pursued palliation. He was given pain medicine. Due to patient's primary concern that he did not want to alone, I remained at bedside with the patient until he . He at 11:56. Sharif Kline MD Feb 21, 2017 14:39
== END 2017-02-21 14:06 | disposition expired | DRG 180 ==
LOC: NEPC 07:30 → NEDA 10:06 → HIMN 14:45 → HOCB 02-19 16:41 → N03A 02-21 11:28
PROVIDERS: ADMIT Internal Medicine Critical Care Medicine; ATTEND Hospitalist
PROC: 0W9B30Z Drainage of Left Pleural Cavity with Drainage Device, Percutaneous Approach (ICD-10-PCS; 2017-02-15)
PROC: 0BBK3ZX Excision of Right Lung, Percutaneous Approach, Diagnostic (ICD-10-PCS; principal; 2017-02-16)
PROC: 02HV33Z Insertion of Infusion Device into Superior Vena Cava, Percutaneous Approach (ICD-10-PCS; 2017-02-19)
PROC: 0JH60XZ Insertion of Tunneled Vascular Access Device into Chest Subcutaneous Tissue and Fascia, Open Approach (ICD-10-PCS; 2017-02-19)
DX: C78.01 Secondary malignant neoplasm of right lung (principal); J96.01 Acute respiratory failure with hypoxia; N17.9 Acute kidney failure, unspecified; E87.0 Hyperosmolality and hypernatremia; J91.0 Malignant pleural effusion; E87.2 Acidosis; C78.02 Secondary malignant neoplasm of left lung; E83.52 Hypercalcemia; D72.829 Elevated white blood cell count, unspecified; N28.9 Disorder of kidney and ureter, unspecified; R73.9 Hyperglycemia, unspecified; Z85.831 Personal history of malignant neoplasm of soft tissue; Z87.891 Personal history of nicotine dependence; Z88.6 Allergy status to analgesic agent
CPT/HCPCS: 32405; 32557; 36561; 36600; 70450; 71010; 71260; 74177; 76775; 76937; 77001; 77012; 80048; 80053; 81001; 81270; 81275; 81276; 82306; 82784; 82805; 82945; 82948; 83615; 83735; 83883; 83970; 83986; 84100; 84155; 84157; 84165; 85007; 85027; 85610; 85730; 86021; 86160; 86334; 87015; 87040; 87070; 87086; 87102; 87116; 87176; 87205; 87206; 87641; 88112; 88184; 88185; 88305; 88377; 89051; 93005; 94640; 94664; 99152; 99153; 99292; C1729; C1769; C1788; C9113; J0690; J1642; J1940; J2250; J2430; J2543; J3010; J3370; J7030; J7040; J7050; Q9967